=== PATIENT | male | born 1950 | race Caucasian/White ===

== ENCOUNTER → 2019-10-13 14:12 | Outpatient (BNVA) | payer OTHER, SELFPAY | PROVIDERS: Family Provider Internal Medicine; Referring Provider Internal Medicine; Visit Provider Orthopaedic Surgery | DX: S62.633A Displaced fracture of distal phalanx of left middle finger, initial encounter for closed fracture (principal); X58.XXXA Exposure to other specified factors, initial encounter | CPT/HCPCS: 73140 ==

== ENCOUNTER → 2019-11-11 08:05 | Outpatient (BNVA) | payer OTHER, SELFPAY | PROVIDERS: Family Provider Internal Medicine; Visit Provider Orthopaedic Surgery | DX: S62.633A Displaced fracture of distal phalanx of left middle finger, initial encounter for closed fracture (principal); X58.XXXA Exposure to other specified factors, initial encounter | CPT/HCPCS: 73140 ==

== ENCOUNTER → 2020-03-01 08:10 | Outpatient (BNVA) | payer OTHER, SELFPAY | PROVIDERS: Family Provider Internal Medicine; Referring Provider Family Medicine; Visit Provider Anesthesiology Pain Medicine | DX: M54.42 Lumbago with sciatica, left side (principal); M47.816 Spondylosis without myelopathy or radiculopathy, lumbar region; M54.16 Radiculopathy, lumbar region; M96.1 Postlaminectomy syndrome, not elsewhere classified; M54.9 Dorsalgia, unspecified; F17.210 Nicotine dependence, cigarettes, uncomplicated; Z79.891 Long term (current) use of opiate analgesic | CPT/HCPCS: 99204 ==

== ENCOUNTER → 2020-03-15 08:31 | Outpatient (BNVA) | payer OTHER, SELFPAY | PROVIDERS: Family Provider Internal Medicine; PCP Family Medicine; Visit Provider Anesthesiology Pain Medicine | DX: M47.816 Spondylosis without myelopathy or radiculopathy, lumbar region (principal); M54.16 Radiculopathy, lumbar region; M54.9 Dorsalgia, unspecified; M96.1 Postlaminectomy syndrome, not elsewhere classified; M79.604 Pain in right leg; F17.210 Nicotine dependence, cigarettes, uncomplicated; Z79.891 Long term (current) use of opiate analgesic | CPT/HCPCS: 99214 ==

== ENCOUNTER → 2020-04-12 08:42 | Outpatient (BNVA) | payer OTHER, SELFPAY | PROVIDERS: Family Provider Internal Medicine; PCP Family Medicine; Visit Provider Anesthesiology Pain Medicine | DX: M54.42 Lumbago with sciatica, left side (principal); M47.816 Spondylosis without myelopathy or radiculopathy, lumbar region; M54.16 Radiculopathy, lumbar region; M96.1 Postlaminectomy syndrome, not elsewhere classified; M54.9 Dorsalgia, unspecified; F17.210 Nicotine dependence, cigarettes, uncomplicated; Z79.891 Long term (current) use of opiate analgesic | CPT/HCPCS: 99213 ==

== ENCOUNTER → 2020-05-10 12:55 | Outpatient (BNVA) | payer OTHER, SELFPAY | PROVIDERS: Family Provider Internal Medicine; PCP Family Medicine; Visit Provider Anesthesiology Pain Medicine | DX: M47.816 Spondylosis without myelopathy or radiculopathy, lumbar region (principal); M54.16 Radiculopathy, lumbar region; M96.1 Postlaminectomy syndrome, not elsewhere classified; M54.9 Dorsalgia, unspecified; F17.210 Nicotine dependence, cigarettes, uncomplicated; Z79.891 Long term (current) use of opiate analgesic | CPT/HCPCS: 99213 ==

== ENCOUNTER → 2020-06-07 10:45 | Outpatient (BNVA) | payer OTHER, SELFPAY | PROVIDERS: Family Provider Internal Medicine; PCP Family Medicine; Visit Provider Anesthesiology Pain Medicine | DX: M47.816 Spondylosis without myelopathy or radiculopathy, lumbar region (principal); M54.16 Radiculopathy, lumbar region; M54.9 Dorsalgia, unspecified; M96.1 Postlaminectomy syndrome, not elsewhere classified; F17.210 Nicotine dependence, cigarettes, uncomplicated; Z79.891 Long term (current) use of opiate analgesic | CPT/HCPCS: 99213 ==

== ENCOUNTER → 2020-06-19 14:13 | Outpatient (BNVA) | payer OTHER, SELFPAY | PROVIDERS: Family Provider Internal Medicine; PCP Family Medicine; Visit Provider Specialist | DX: M54.16 Radiculopathy, lumbar region (principal); G62.9 Polyneuropathy, unspecified; F17.210 Nicotine dependence, cigarettes, uncomplicated | CPT/HCPCS: 95909 ==

== ENCOUNTER → 2020-06-30 11:06 | Outpatient (BNVA) | payer OTHER, SELFPAY | PROVIDERS: Family Provider Internal Medicine; PCP Family Medicine; Visit Provider Anesthesiology Pain Medicine | DX: M54.42 Lumbago with sciatica, left side (principal); M47.816 Spondylosis without myelopathy or radiculopathy, lumbar region; M54.16 Radiculopathy, lumbar region; M96.1 Postlaminectomy syndrome, not elsewhere classified; M54.9 Dorsalgia, unspecified; F17.210 Nicotine dependence, cigarettes, uncomplicated; Z79.891 Long term (current) use of opiate analgesic | CPT/HCPCS: 99213; 99214 ==

== ENCOUNTER → 2020-07-31 10:34 | Outpatient (BNVA) | payer OTHER, SELFPAY | PROVIDERS: Family Provider Internal Medicine; PCP Family Medicine; Visit Provider Anesthesiology Pain Medicine | DX: M54.42 Lumbago with sciatica, left side (principal); M47.816 Spondylosis without myelopathy or radiculopathy, lumbar region; M48.062 Spinal stenosis, lumbar region with neurogenic claudication; M54.16 Radiculopathy, lumbar region; M96.1 Postlaminectomy syndrome, not elsewhere classified; M54.9 Dorsalgia, unspecified; M79.604 Pain in right leg; F17.210 Nicotine dependence, cigarettes, uncomplicated; Z79.891 Long term (current) use of opiate analgesic | CPT/HCPCS: 99214 ==

== ENCOUNTER → 2020-08-28 08:40 | Outpatient (BNVA) | payer OTHER, SELFPAY | PROVIDERS: Family Provider Internal Medicine; PCP Family Medicine; Visit Provider Anesthesiology Pain Medicine | DX: M47.816 Spondylosis without myelopathy or radiculopathy, lumbar region (principal); M54.16 Radiculopathy, lumbar region; M96.1 Postlaminectomy syndrome, not elsewhere classified; M54.9 Dorsalgia, unspecified; M79.605 Pain in left leg; F17.210 Nicotine dependence, cigarettes, uncomplicated | CPT/HCPCS: 99213; 99214 ==

== ENCOUNTER → 2020-10-12 10:59 | Outpatient (BNVA) | payer OTHER, SELFPAY | PROVIDERS: Family Provider Internal Medicine; PCP Family Medicine; Visit Provider Anesthesiology Pain Medicine | DX: M96.1 Postlaminectomy syndrome, not elsewhere classified (principal); M47.816 Spondylosis without myelopathy or radiculopathy, lumbar region; M54.16 Radiculopathy, lumbar region; M54.9 Dorsalgia, unspecified; F17.210 Nicotine dependence, cigarettes, uncomplicated; Z79.891 Long term (current) use of opiate analgesic | CPT/HCPCS: 99214 ==

== ENCOUNTER 2021-04-11 14:33 | Observation (INO) | payer OTHER, SELFPAY ==
[2021-04-11] VITALS (10 sets, daily range): BP systolic 142–180; BP diastolic 72–91; PULSE 53–81; RESP 16–19; TEMP 36.7–36.8; O2SAT 92–96; BMI 29.1
--- NOTE | 2021-04-11 15:57 | ECG_ITS ---
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 Measurements Intervals [place] Rate: 56 P: 78 DC: 234 QRS: 64 QRSD: 82 T: 75 QT: 431 QTc: 419 Interpretive Statements SINUS BRADYCARDIA WITH FIRST DEGREE AV BLOCK Compared to ECG 07/31/2018 11:20:16 First degree AV block now present Sinus rhythm no longer present Electronically Signed On 04-11-2021 19:39:46 CDT by Nasrin Goode M.D. [id number]
[2021-04-11 16:21] LABS: Basophils % 0.2 %; Eosinophils # 0.2 10^3/uL (0.0-0.8); Eosinophils % 1.7 %; Hematocrit 42.3 % (42.0-52.0); Hemoglobin 13.3 g/dL (11.7-16.6); Lymphocytes % 32.7 %; Mean Corpuscular HGB Conc 31.4 g/dL (30.0-36.0); Mean Corpuscular Volume 95.3 fl (80-94); Mean Platelet Volume 10.2 fL (7.4-10.4); Monocytes # 0.7 10^3/uL (0.2-0.9); Monocytes % 7.3 %; Neutrophils # 5.21 10^3/uL (1.8-7.7); Neutrophils % 57.9 %; Nucleated Red Blood Cells % 0 %; Platelet Count 273 10^3/cmm (130-400); Red Blood Count 4.44 10^6/uL (4.1-5.3); Red Cell Distribution Width 14.1 % (12.1-15.1)
[2021-04-11 16:28] LABS: INR 1.03 (0.8-1.2)
[2021-04-11 16:33] LABS: Partial Thromboplastin Time 28.6 SECONDS (23.9-36.7)
--- NOTE | 2021-04-11 16:33 | XRR_ITS ---
PROCEDURE INFORMATION: Exam: XR Chest Exam date and time: 04/11/2021 4:33 PM Age: 70 years old Clinical indication: Cough TECHNIQUE: Imaging protocol: XR of the chest. Views: 1 view. COMPARISON: CR Chest 1 [place] [id number] 02/26/2015 5:12 PM FINDINGS: Lungs: No focal consolidation. No pulmonary edema. Calcified granuloma in the left upper lobe is stable. Pleural spaces: No pleural effusion. No pneumothorax. Heart/Mediastinum: Stable mild enlargement of the cardiac silhouette. Mediastinal contours are unremarkable. Vasculature: Vascular calcifications in the aorta. Bones/joints: Unremarkable for age. XR/XR chest 1V portable [id number] IMPRESSION: 1. No acute cardiopulmonary process. 2. Incidental/nonacute findings are listed in the report.
--- NOTE | 2021-04-11 16:40 | ED_ITS ---
HPI - General Adult General: Chief complaint: General Medical 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: SPITTING UP BLOOD, [facility] Time Seen by Provider: 04/11/21 15:16 History of Present Illness: HPI narrative: Patient is a 70-year-old male with a history of hypertension, diabetes, CAD on aspirin who presents the emergency room after episodes of dark coffee-ground hemoptysis x 1 episode. Patient says that he has been coughing earlier today when he noticed that he coughed up the dark substance. Patient also reports some mild epigastric abdominal pain denies any vomiting, melena or hematochezia. Patient specifically denies HEMATEMESIS. Patient is on any blood thinners. No other focal complaints including fever/chills, runny nose, sore throat, dilatation. Onset: 1 hr ago Duration:1 hr Location:home Severity:moderate Review of Systems Narrative: Constitutional: No fever, no chills. HEENT: No vision changes CV: No chest pain, no palpitations PULM: +cough, no dyspnea. GI: + abdominal pain, no N/V/D. : No dysuria MSKEL: No muscle pain SKIN: No new rashes, no lesions. NEURO: No headache, no focal weakness. HEME: No visible bruises PSYCH: Normal mood PFSH ED PFSH: Medical History Diabetes Hypercholesterolemia halfway (current) use of opiate analgesic Pain management contract signed Surgical History H/O arthroscopic knee surgery History of ankle surgery History of back surgery Hx of cholecystectomy Family History Other Hypertension Stroke Denies family history of Diabetes CAD (coronary artery disease) Social History Smoking and tobacco status: current some day smoker cigarettes [ Other cigarette details: 3-4 CIGS DAY ] Alcohol intake: never Substance/Drug Use: never Caregiver/support person: Yes Lives independently: Yes Household members: spouse Marital status: History of recent travel: No Physical Exam Narrative: EXAM NARRATIVE: Head: Atraumatic Eyes: PERRL, conjunctiva without injection ENT: Mucous membrane moist NECK: Supple, ROM intact LUNGS: LCTAB, no crackles/rhonchi CV: RRR ABDOMEN: Soft, + tenderness in the mid epigastric area, no guarding no rebound tenderness no McBurney's point tenderness, no Lei sign, no CVA tenderness EXTREMITY: Normal ROM SKIN: No rash or erythema NEURO: Awake and alert, no focal motor deficits PSYCH: Normal mood and affect Course Vital Signs: Vital signs: Vital Signs Temperature 97.8 F 04/12/21 04:00 Pulse Rate 63 04/12/21 04:00 Respiratory Rate 18 04/12/21 04:00 Blood Pressure 147/51 04/12/21 04:00 Pulse Oximetry 93 04/12/21 04:00 MDM - General Adult MDM Narrative: Medical decision making narrative: Patient is a 70-year-old male chronically on aspirin who presents the emergency room with midepigastric abdominal pain, cough and coffee-ground substance per cough. On exam, HDS. +Mild epigastric tenderness to palpation is noted on exam. Lab work-up showed a white count of 8.4. X-ray chest did not show any signs of mass or focal lung lesion. Will order D-dimer for evaluation of possible PE and hemoptysis. Given onset abdominal pain, this is most likely hematemesis, [facility] patient denies. Hemoglobin is within normal limit. Disposition: Admission for serial observation for hemoptysis versus hematemesis and repeat blood work. Lab Data: Labs: Lab Results 04/11/21 04/11/21 04/11/21 Range/Units 16:08 16:08 16:08 WBC 9.0 (4.0-10.0) 10^3/ uL RBC 4.44 (4.1-5.3) 10^6/u L Hgb 13.3 (11.7-16.6) g/dL Hct 42.3 (42.0-52.0) % MCV 95.3 H (80-94) fl MCH 30.0 (28.0-34.0) pg MCHC 31.4 (30.0-36.0) g/dL RDW 14.1 (12.1-15.1) % Plt Count 273 (130-400) 10^3/c mm MPV 10.2 (7.4-10.4) fL Neut % (Auto) 57.9 % Lymph % (Auto) 32.7 % [place] % (Auto) 7.3 % Eos % (Auto) 1.7 % Baso % (Auto) 0.2 % Neut # (Auto) 5.21 (1.8-7.7) 10^3/u L Lymph # (Auto) 3.0 (0.8-4.8) 10^3/u L [place] # (Auto) 0.7 (0.2-0.9) 10^3/u L Eos # (Auto) 0.2 (0.0-0.8) 10^3/u L Baso # (Auto) 0.0 (0.0-0.1) 10^3/u L Nucleated RBC % (a uto) 0 % Nucleated RBCs # 0.0 /100WBC PT 13.80 (12.1-14.9) SECO NDS INR 1.03 (0.8-1.2) APTT 28.6 (23.9-36.7) SECO NDS Sodium 140 (136-145) mmol/L Potassium 4.3 (3.5-5.1) mmol/L Chloride 103 (98-107) mmol/L Carbon Dioxide 27 (22-29) mmol/L Anion Gap 14.3 (5-19) BUN 9 (8-23) mg/dL Creatinine 0.9 (0.7-1.2) mg/dL GFR Calculation Not Reportable Glucose 72 (65-115) mg/dL Calculated Osmolal ity 287 (285-295) mOsm/k g Calcium 9.1 (8.5-10.5) mg/dL Blood Type Rho(D) Type Antibody Screen 04/11/21 Range/Units 16:20 WBC (4.0-10.0) 10^3/ uL RBC (4.1-5.3) 10^6/u L Hgb (11.7-16.6) g/dL Hct (42.0-52.0) % MCV (80-94) fl MCH (28.0-34.0) pg MCHC (30.0-36.0) g/dL RDW (12.1-15.1) % Plt Count (130-400) 10^3/c mm MPV (7.4-10.4) fL Neut % (Auto) % Lymph % (Auto) % [place] % (Auto) % Eos % (Auto) % Baso % (Auto) % Neut # (Auto) (1.8-7.7) 10^3/u L Lymph # (Auto) (0.8-4.8) 10^3/u L [place] # (Auto) (0.2-0.9) 10^3/u L Eos # (Auto) (0.0-0.8) 10^3/u L Baso # (Auto) (0.0-0.1) 10^3/u L Nucleated RBC % (a uto) % Nucleated RBCs # /100WBC PT (12.1-14.9) SECO NDS INR (0.8-1.2) APTT (23.9-36.7) SECO NDS Sodium (136-145) mmol/L Potassium (3.5-5.1) mmol/L Chloride (98-107) mmol/L Carbon Dioxide (22-29) mmol/L Anion Gap (5-19) BUN (8-23) mg/dL Creatinine (0.7-1.2) mg/dL GFR Calculation Glucose (65-115) mg/dL Calculated Osmolal ity (285-295) mOsm/k g Calcium (8.5-10.5) mg/dL Blood Type A Positive Rho(D) Type Positive Antibody Screen Negative Discharge Plan Discharge Patient Disposition: Admitted As Inpatient Admit Provider: Jim Vilchis Clinical Impression: Coffee ground emesis, Hemoptysis, Midepigastric pain Condition: Stable Coding Level of Care Code ED Switchboard Manager for Sarah Sheth
[2021-04-11 16:42] LABS: Anion Gap 14.3 (5-19); Blood Urea Nitrogen 9 mg/dL (8-23); Calcium 9.1 mg/dL (8.5-10.5); Carbon Dioxide 27 mmol/L (22-29); Chloride 103 mmol/L (98-107); Glucose 72 mg/dL (65-115); Osmolality Calculated 287 mOsm/kg (285-295); Potassium 4.3 mmol/L (3.5-5.1); Sodium 140 mmol/L (136-145)
[2021-04-11] MEDS: pantoprazole 40 mg SDV 80 MG IVP (16:47)
[2021-04-11 17:44] LABS: D Dimer 0.56 ug/mIFEU (0-0.59)
--- NOTE | 2021-04-11 19:51 | PM.HP ---
Providers/Chief Complaint Admitting Physician: Jim Vilchis Primary Care Provider: Surekha Harman MD Chief Complaint: SP[facility] BLO[facility] History of Present Illness Very pleasant 70-year-old gentleman, current smoker, with history of diabetes, HLD, HTN, chronically on prophylactic aspirin presented today after episodes of hemoptysis stating that this morning after episode of cough he regurgitated about 30 mL of bloody/coffee-ground appearing fluid. He reports not long after that he had felt somewhat weak in his legs, lightheaded and almost fell down/passed out. However, recovered. So far had had no further issues. Denies any recent cough. Chest pain. Says he was working outside when it happened. 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 He denies any nausea or vomiting. No diarrhea. Denies any fever, chills, muscle aches, sore throat, runny nose. No headache. Denies any NSAID use. States that he had had back surgery earlier this year, and he is not sure he may have had endoscopy at that time, but does not remember having the procedure done. Back surgery was at [facility]. He is a current smoker. He denies any unintended weight loss. Denies any prior hemoptysis. Otherwise denies also any drenching night sweats. Review of Systems Const: Denies: fever(s), chills, body aches or malaise Eyes: Denies: change in vision or eye redness ENMT: Denies: throat pain, oral sores or ear or mastoid pain Card: Denies: chest pain, edema, pre-syncope or dyspnea on exertion Resp: Reports: hemoptysis (Vs coffee ground emesis?); Denies: dyspnea, productive cough or change in phlegm color GI: Denies: abdominal pain, nausea, vomiting, diarrhea, constipation, hematochezia or melena : Denies: flank pain, difficulty urinating, urinary frequency or hematuria Musc: Denies: back pain, joint swelling or joint redness Skin/Breast: Denies: rash, sores or new lesions Neuro: Denies: headache(s), numbness in extremities, weakness in extremities, dizziness, confusion or seizure-like activity Endo: Denies: polyuria or polydipsia [place]/Lymph: Denies: easy bleeding or purpura All/Imm: Denies: urticaria, throat swelling or tongue swelling Medications/Allergies Home Medications Medication Instructions Recorded Confirmed Last Taken Type aspirin 81 mg tablet,delayed 81 mg PO DAILY 10/13/19 04/11/21 04/11/21 History release diltiazem HCl 180 mg 180 mg PO DAILY 03/01/20 04/11/21 04/11/21 History capsule,extended release 24 hr lisinopril 40 mg tablet 40 mg PO DAILY 03/01/20 04/11/21 04/10/21 History omeprazole 20 mg capsule,delayed 20 mg PO DAILY 03/01/20 04/11/21 04/10/21 History release pravastatin 40 mg tablet 20 mg PO DAILY 03/01/20 04/11/21 04/10/21 History cholecalciferol (vitamin D3) 1,250 1,250 mcg PO DAILY cap 05/10/20 04/11/21 04/11/21 History mcg (50,000 unit) capsule metformin 500 mg PO BID 04/11/21 04/11/21 04/11/21 History pregabalin 100 mg PO BID 04/11/21 04/11/21 04/11/21 History sennosides 8.6 mg PO BID 04/11/21 04/11/21 04/11/21 History Allergies Allergy/AdvReac Type Severity Reaction Status Date / Time No Known Allergies Allergy Verified 10/12/20 11:46 PFSH Acute PFSH: Medical History Diabetes Hypercholesterolemia 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 Pain management contract signed Surgical History H/O arthroscopic knee surgery History of ankle surgery History of back surgery Hx of cholecystectomy Family History Other Hypertension Stroke Denies family history of Diabetes CAD (coronary artery disease) Social History Smoking and tobacco status: current some day smoker cigarettes [ Other cigarette details: 3-4 CIGS DAY ] Alcohol intake: never Substance/Drug Use: never Caregiver/support person: Yes Lives independently: Yes Household members: spouse Marital status: History of recent travel: No Vitals/I&O/Wt Last Vital Signs Temp 98.2 F 04/11/21 15:00 Pulse 55 L 04/11/21 19:08 Resp 18 04/11/21 19:08 BP 170/87 04/11/21 19:08 Pulse Ox 94 04/11/21 19:08 Weight last 48 hrs Weight 97.522 kg Physical Exam Narrative: EXAM NARRATIVE: Accompanied by his . Const: COMMON NORMALS: no acute distress and patient oriented x3 HENMT: COMMON NORMALS: oropharynx normal Neck/C-Spine: COMMON NORMALS: no JVD Resp: COMMON NORMALS: normal respiratory effort and clear to auscultation bilaterally AUSCULTATION: clear to auscultation bilaterally Cardio: COMMON NORMALS: no JVD, regular rhythm, S1 normal heart sound present, S2 normal heart sound present and No murmurs present (Cardio) RHYTHM: regular rhythm HEART SOUNDS: S1 normal heart sound present and S2 normal heart sound present GI: COMMON NORMALS: Normal to inspection, nondistended, normoactive bowel sounds present, Soft to palpation and non-tender PALPATION: Yes Soft to palpation Extremity: COMMON NORMALS: no joint enlargement and no pedal edema Neuro: COMMON NORMALS: patient oriented x3 and moves all extremities Skin: COMMON NORMALS: no rashes or lesions noted GENERAL SKIN EXAM: no rashes or lesions noted Data : 04/11/21 16:08 04/11/21 16:08 A&P Assessment and plan (1) Hemoptysis: For episode of cough. Cough were regurgitated bloody/coffee-ground appearing fluid. He is not sure exactly where the fluid had come from. He denies any recent cough. Denies chest pain or pressure. Has not been short of breath. Did have a moment of lightheadedness/feeling weak in his legs after the episode which spontaneously resolved. He also denies any recent nausea or vomiting. He takes aspirin at home. Denies any NSAIDs. Is not on any anticoagulants. His chest x-ray. Unremarkable apart from a calcified granuloma in the left upper lobe which is noted stable. He denies any recurrent fevers, drenching night sweats, unintended weight loss. He states that he is very active at home, and otherwise has been at baseline state of health. We will additionally test rapid COVID-19, although he otherwise does not appear to have significant associated symptoms. In case coughing up more phlegm, will collect for culture. D-dimer has been checked and is negative. Discussed with him with history of smoking would benefit from additional CT evaluation to exclude malignancy as the cause. Does appear to have monophonic wheeze in the right midlung area. He reports like he had almost choked up during the episode. Again difficult to say if he had head regurgitation on which he may have aspirated, as opposed to the blood coming primarily from his lung. Hold aspirin for now. He states he takes it only prophylactically. Assess TTE. Status: Acute (2) Smoking addiction: Encourage cessation. Status: Acute (3) Coffee ground emesis: Started on PPI. We will for now continue. Recheck his blood count. Hold aspirin. Status: Acute Additional A&P Information DM2: On Metformin at home HTN: Takes diltiazem at home. For now will decrease his doses heart rate is noted to be 55. HLD Attestations Medical Necessity Statement*: Place in observation for assessment and monitoring following hemoptysis or regurgitation of about 30 mL of bloody fluid of unclear origin. Coding Level of Care Code Acute Datawarehouse Developer for Sarah Sheth Diagnoses Hemoptysis R04.2 Smoking addiction F17.200 Coffee ground emesis K92.0
[2021-04-11 20:31] LABS: SARS Covid-2 Antigen Negative (Negative)
[2021-04-12] VITALS (7 sets, daily range): BP systolic 138–170; BP diastolic 51–92; PULSE 54–72; RESP 16–18; TEMP 36.3–36.7; O2SAT 93–96
[2021-04-12 03:15] LABS: Basophils % 0.2 %; Eosinophils # 0.1 10^3/uL (0.0-0.8); Eosinophils % 1.7 %; Hematocrit 41.6 % (42.0-52.0); Lymphocytes % 23.9 %; Mean Corpuscular HGB Conc 31.3 g/dL (30.0-36.0); Mean Corpuscular Hemoglobin 30.2 pg (28.0-34.0); Mean Corpuscular Volume 96.7 fl (80-94); Mean Platelet Volume 10.3 fL (7.4-10.4); Monocytes # 0.6 10^3/uL (0.2-0.9); Monocytes % 7.5 %; Neutrophils # 5.58 10^3/uL (1.8-7.7); Neutrophils % 66.5 %; Nucleated Red Blood Cells % 0 %; Platelet Count 251 10^3/cmm (130-400); Red Cell Distribution Width 14.2 % (12.1-15.1); White Blood Count 8.4 10^3/uL (4.0-10.0)
[2021-04-12 03:49] LABS: Alanine Aminotransferase 8 U/L (0-41); Albumin Level 3.5 g/dL (3.5-5.2); Alkaline Phosphatase 66 IU/L (40-130); Anion Gap 12.1 (5-19); Aspartate Amino Transferase 15 U/L (0-40); Blood Urea Nitrogen 7 mg/dL (8-23); Carbon Dioxide 27 mmol/L (22-29); Chloride 105 mmol/L (98-107); Globulin 2.4 g/dL (1.3-4.6); Glucose 76 mg/dL (65-115); Osmolality Calculated 287 mOsm/kg (285-295); Potassium 4.1 mmol/L (3.5-5.1); Sodium 140 mmol/L (136-145); Total Bilirubin 0.5 mg/dL (0.15-1.2); Total Protein 5.9 g/dL (6.6-8.7)
--- NOTE | 2021-04-12 05:19 | PC.NURSE ---
Patient arrived to floor via wheel chair, minimal c/o of discomfort but not pain. No emesis or hemopytosis during shift since arrival to floor. No skin concerns. OOBTC, VSS, no needs, room clutter free, call light in reach. No needs at this time. Repositions self frequently. WIll report and handoff patient to oncoming nurse at shift change.
[2021-04-12] MEDS: pantoprazole DR 40 mg Tablet PO (08:04)
[2021-04-12] MEDS: dilTIAZem ER (24HR) 120 mg Capsule PO (08:04)
[2021-04-12] MEDS: sennosides 8.6 mg Tablet PO (08:04)
[2021-04-12] MEDS: atorvastatin 40 mg Tablet 20 MG PO (08:04)
[2021-04-12] MEDS: pregabalin 100 mg Capsule PO (08:04)
[2021-04-12] MEDS: lisinopril 20 mg Tablet 40 MG PO (08:04)
--- NOTE | 2021-04-12 09:11 | CT_ITS ---
[facility]-HIGH RESOLUTION, NONCONTRAST. HISTORY: Interstitial lung disease. Technique: High-resolution chest CT is performed in inspiration, expiration, supine and prone positio donovan. All CT scans at [facility] use at least one of these dose optimization techniques: automated exposure control; mA and/or kV adjustment per patient size (includes targeted exams where dose is mat ched to clinical indication); or iterative reconstruction. DLP: 108.33 mGy.cm COMPARISON: None. Findings: Contiguous axial imaging is nondiagnostic due to motion. Inspiratory and expiratory films are negative for air trapping. No pneumonia or bronchiectasis. 4 mm nodule along the LEFT major fissure. No bronchiectasis or honeycombing. No nodules. No atelectasis. T here is a small amount of debris within the trachea which is probably mucous. No endobronchial nodule s. Mild enlargement of the aorta and pulmonary artery. Impression 1. No air trapping or bronchiectasis. 2. No pneumonia. 3. Mild emphysema.
--- NOTE | 2021-04-12 21:33 | P.DS_ITS ---
Discharge Providers Date of Admission: 04/11/21 17:05 Date of Discharge: April 12, 2021 Attending Provider at Admission: Jim Vilchis Attending Provider at Discharge: Jim Vilchis Primary Care Provider: Surekha Harman MD Diagnoses at Discharge Discharge Diagnosis (1) Hemoptysis: Status: Acute (2) Smoking addiction: Status: Acute (3) Coffee ground emesis: Status: Acute Reason for Visit Reason for Visit: SPITTING UP BLOOD, SENT BY NE Hospital Course Hospital Course Pleasant 70-year-old gentleman, current smoker, with history of diabetes, HLD, HTN, chronically on prophylactic aspirin presented, current smoker, with history of diabetes, HLD, HTN, chronically on prophylactic aspirin presented after an episode of cough subsequently with regurgitation and coughing up about 30 mL of phlegm with blood/coffee-ground appearing fluid. He was not sure if he had coughed up or vomited some let up. He reports not long after that he had felt somewhat weak in his legs, lightheaded and almost fell down/passed out. However, recovered. So far had had no further issues. Denies any recent cough. Chest pain. Says he was working outside when it happened. 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 He denies any nausea or vomiting. No diarrhea. Denies any fever, chills, muscle aches, sore throat, runny nose. No headache. Denies any NSAID use. States that he had had back surgery earlier this year, and he is not sure he may have had endoscopy at that time, but does not remember having the procedure done. Back surgery was at [facility]. He is a current smoker. He denies any unintended weight loss. Denies any prior hemoptysis. Otherwise denies also any drenching night sweats. With concern for possible GI bleed he was maintained on bowel rest, clear liquid diet, hemoglobin was rechecked in the morning and stayed stable at 13. Aspirin has been withheld. Overnight he did well, had had no hemoptysis, no vomiting. He reports having mild cough. Does report having some itchy eyes recently. On examination of nares, noted to have inflammatory mucosal changes. Reports some seasonal allergy-type symptoms. With aspirin my suspicion is that he may have had a self-limited episode of epistaxis with postnasal drip which he then coughed up. Discussing with him he agrees. He may have mild bronchitis. Isolated wheezes on exam. Due to this he is given albuterol inhaler as needed. D-dimer was normal. Due to history of smoking, however, with hemoptysis, he is assessed by HRCT, noncontrast study. No air trapping or bronchiectasis is noted. No pneumonia. Mild emphysema. 4 mm nodule noted in left major fissure. Given history of smoking, consider follow-up CT at 6-12 months. Discussed with him also in case of recurrence of hemoptysis consider contrast CT study. Please consider referral for pulmonary function testing given noted emphysema, as well as wheezing, possibly with asthmatic component. 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 Reason for his episode of weakness shortly after the episode is not entirely clear. May have been vasovagal, following cough. He is however, also noted to have bradycardia, heart rates dipping down to 53- 57. He is on diltiazem which he says he takes for hypertension alongside lisinopril. Encouraged him to continue monitoring his heart rates. We will for now decrease diltiazem dose to 120 mg daily, however, if persistently remains bradycardic, please discontinue this medication and consider switch to one that would not cause bradycardia unless needed for other indication, although he denies having history of atrial fibrillation or other arrhythmia. Encouraged him to quit smoking. Please follow-up and help him with this difficult task. Physical Exam Const: COMMON NORMALS: no acute distress, patient oriented x3 and alert GENERAL APPEARANCE: cooperative and comfortable ORIENTATION/CONSCIOUSNESS: Yes awake OTHER: In good spirits. Feels good about returning home. HENMT: COMMON NORMALS: oropharynx normal Neck/C-Spine: COMMON NORMALS: no JVD Resp: COMMON NORMALS: normal respiratory effort and clear to auscultation bilaterally AUSCULTATION: clear to auscultation bilaterally and wheezes (Minute wheeze, today on the left.) Cardio: COMMON NORMALS: no JVD, regular rhythm, S1 normal heart sound present, S2 normal heart sound present and No murmurs present (Cardio) RHYTHM: regular rhythm HEART SOUNDS: S1 normal heart sound present and S2 normal heart sound present GI: COMMON NORMALS: Normal to inspection, nondistended, normoactive bowel sounds present, Soft to palpation and non-tender PALPATION: Yes Soft to palpation Extremity: COMMON NORMALS: no joint enlargement and no pedal edema Neuro: COMMON NORMALS: patient oriented x3 and moves all extremities SENSORIUM/ORIENTATION: Yes alert Skin: COMMON NORMALS: no rashes or lesions noted GENERAL SKIN EXAM: no rashes or lesions noted Discharge Data Data Completed and Pending: Completed Studies During Hospitalization Category Date Time Status CT chest wo con 7 1250 Routine Cat Scan 04/12/21 09:11 Completed XR chest 1V ryan ble [id number] Stat Exams 04/11/21 16:33 Completed Labs from last 24 hours 04/12/21 04/12/21 02:45 02:45 WBC 8.4 RBC 4.30 Hgb 13.0 Hct 41.6 L MCV 96.7 H MCH 30.2 MCHC 31.3 RDW 14.2 Plt Count 251 MPV 10.3 Neut % (Auto) 66.5 Lymph % (Auto) 23.9 [place] % (Auto) 7.5 Eos % (Auto) 1.7 Baso % (Auto) 0.2 Neut # (Auto) 5.58 Lymph # (Auto) 2.0 [place] # (Auto) 0.6 Eos # (Auto) 0.1 Baso # (Auto) 0.0 Nucleated RBC % (a uto) 0 Nucleated RBCs # 0.0 Sodium 140 Potassium 4.1 Chloride 105 Carbon Dioxide 27 Anion Gap 12.1 BUN 7 L Creatinine 0.8 GFR Calculation Not Reportable Glucose 76 Calculated Osmolal ity 287 Calcium 9.0 Total Bilirubin 0.5 AST 15 ALT 8 Alkaline Phosphata se 66 Total Protein 5.9 L Albumin 3.5 Globulin 2.4 Vitals: Last Vital Signs Temp 98.1 F 04/12/21 17:39 Pulse 56 L 04/12/21 17:39 Resp 17 04/12/21 17:39 BP 166/80 04/12/21 17:39 Pulse Ox 93 04/12/21 17:39 Discharge Plan Discharge Patient Disposition: Home Condition: Stable Prescriptions: New diltiazem HCl 120 mg capsule,extended release 24hr 120 mg PO DAILY Qty: 90 RF: 0 Nasacort 55 mcg aerosol,spray 1 spray intranasal QAM Qty: 16.9 RF: 0 albuterol sulfate 90 mcg/actuation aerosol powdr breath activated 1 inh inhalation Q6H PRN (Reason: shortness of breath or wheezing) Qty: 1 RF: 0 Continued pravastatin 40 mg tablet 20 mg PO DAILY RF: 0 lisinopril 40 mg tablet 40 mg PO DAILY RF: 0 omeprazole 20 mg capsule,delayed release(DR/EC) 20 mg PO DAILY RF: 0 cholecalciferol (vitamin D3) 1,250 mcg (50,000 unit) capsule 1,250 mcg PO DAILY RF: 0 sennosides 8.6 mg Tablet 8.6 mg PO BID RF: 0 metformin 1,000 mg Tablet 500 mg PO BID RF: 0 pregabalin 100 mg Capsule 100 mg PO BID RF: 0 Discontinued aspirin [Adult Low Dose Aspirin] 81 mg tablet,delayed release (DR/EC) 81 mg PO DAILY RF: 0 diltiazem HCl 180 mg capsule,extended release 24hr 180 mg PO DAILY RF: 0 Discharge Orders: Discharge Order (Routine); Ordered 04/12/21 Ordered By: Jim Vilchis Referrals: Surekha Harman MD [Primary Care Provider] - 2 weeks (Please call tomorrow to dorian a follow up appointment.) Discharge Diet: Cardiac Discharge Activity: Increase activity as tolerated Patient Instructions: Diltiazem (By mouth), How to Stop Smoking (GEN), Cigarette Smoking and Your Health (GEN), Acute Hemoptysis (GEN), Chronic Hypertension (GEN), Bradycardia (GEN) Activity Restrictions/Additional Instructions: We are suspecting we havePlease follow-up with your primary doctor regarding episode of coughing up blood. Please discuss also 4 mm nodule noted in the lung on CT. Consider follow-up CAT scan at 6-12 months. In case additional episodes of coughing up blood, or any other concerning symptoms for malignancy, consider CAT scan with contrast dye. Please use Nasacort for nasal allergy symptoms, noted nasal inflammation. Please discontinue aspirin as with allergy symptoms, nasal polyps, people who have wheezing/asthma, can have sensitivity to aspirin and other NSAIDs as part of Samter's triad. In case you are having persistent recurrent wheezing, please discuss pulmonary function testing referral with your primary doctor. We are suspecting he may be having mild bronchitis. Due to this you are given albuterol inhaler as needed. Please note that due to slow pulse rates in the hospital, 53-57 bpm, your Cardizem dose at this time is decreased to 120 mg daily. Please continue to monitor your heart rate at home. If your heart rate is slower than 60 and you are having symptoms of dizziness or if your heart rates are falling below 50 bpm , please do not take anymore diltiazem. Please stop smoking, as smoking will increase your risk of heart disease, stroke, lung disease, as well as a number of different cancers. Discharge Attestations Time Spent in Discharge Care*: greater than 30 min Quality Metrics Clinical Quality Measures During this hospital stay, did patient experience: None Coding Level of Care Code Acute Chg FW DC note Diagnoses Hemoptysis R04.2 Smoking addiction F17.200 Coffee ground emesis K92.0
--- NOTE | 2021-04-13 11:52 | PC.SOCIAL ---
discharge follow up call made. Patient is waiting to receive [facility]. Follow up appointment made with Dr. Harman for 2 weeks.
== END 2021-04-12 17:40 | disposition home or self-care (01) ==
LOC: ER 16:47 → MEDSURG 19:12
PROVIDERS: Admitting Provider Internal Medicine; Emergency Provider Emergency Medicine; PCP Family Medicine; Visit Provider Internal Medicine
DX: R04.2 Hemoptysis (principal); F17.210 Nicotine dependence, cigarettes, uncomplicated; K92.0 Hematemesis; E11.9 Type 2 diabetes mellitus without complications; E78.5 Hyperlipidemia, unspecified; I10 Essential (primary) hypertension; Z79.82 Long term (current) use of aspirin; E78.00 Pure hypercholesterolemia, unspecified; Z79.891 Long term (current) use of opiate analgesic; Z82.49 Family history of ischemic heart disease and other diseases of the circulatory system; Z82.3 Family history of stroke
CPT/HCPCS: 36415; 71045; 71250; 80048; 80053; 85025; 85378; 85610; 85730; 86850; 86900; 87426; 93005; 96374; 99285; C9113; G0378

== ENCOUNTER 2021-09-11 16:40 | Emergency (ER) | payer OTHER, SELFPAY ==
[2021-09-11] VITALS (7 sets, daily range): BP systolic 93–118; BP diastolic 60–85; PULSE 81–108; RESP 18–24; TEMP 36.9–37.4; O2SAT 90–94
--- NOTE | 2021-09-11 17:35 | ECG_ITS ---
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 Measurements Intervals [place] Rate: 109 P: PA: QRS: 64 QRSD: 84 T: 77 QT: 311 QTc: 420 Interpretive Statements ATRIAL FIBRILLATION WITH RAPID VENTRICULAR RESPONSE NONSPECIFIC T-WAVE ABNORMALITY ABNORMAL RHYTHM ECG Compared to ECG 04/11/2021 16:06:57 T-wave abnormality now present Sinus bradycardia no longer present First degree AV block no longer present Electronically Signed On 09-12-2021 7:05:36 ENTRY LEVEL PARALEGAL by Brittany Henderosn M.D. [id number] f
--- NOTE | 2021-09-11 17:59 | XRR_ITS ---
PROCEDURE INFORMATION: Exam: XR Chest Exam date and time: 09/11/2021 5:59 PM Age: 71 years old Clinical indication: Cough and shortness of breath; Additional info: Dyspnea/cough TECHNIQUE: Imaging protocol: XR of the chest. Views: 1 view. COMPARISON: CT chest con [id number] 04/12/2021 10:03 AM FINDINGS: Lungs: Hyperinflated lungs. No consolidation. No pulmonary lesion. Left upper lobe granuloma. Pleural spaces: Unremarkable. No pleural effusion. No pneumothorax. Heart/Mediastinum: Unremarkable. No cardiomegaly. Bones/joints: Unremarkable. XR/XR chest 1V portable [id number] IMPRESSION: No focal acute cardiopulmonary disease.
[2021-09-11 18:06] LABS: Basophils % 0.1 %; Hematocrit 40.7 % (42.0-52.0); Hemoglobin 13.2 g/dL (11.7-16.6); Lymphocytes # 0.7 10^3/uL (0.8-4.8); Lymphocytes % 7.6 %; Mean Corpuscular HGB Conc 32.4 g/dL (30.0-36.0); Mean Corpuscular Hemoglobin 30.3 pg (28.0-34.0); Mean Corpuscular Volume 93.6 fl (80-94); Mean Platelet Volume 10.7 fL (7.4-10.4); Monocytes # 0.7 10^3/uL (0.2-0.9); Monocytes % 7.3 %; Neutrophils # 8.27 10^3/uL (1.8-7.7); Neutrophils % 84.7 %; Nucleated Red Blood Cells % 0 %; Platelet Count 209 10^3/cmm (130-400); Red Blood Count 4.35 10^6/uL (4.1-5.3); Red Cell Distribution Width 13.3 % (12.1-15.1); White Blood Count 9.8 10^3/uL (4.0-10.0)
--- NOTE | 2021-09-11 18:34 | W.ED.WEAKNES ---
HPI - Weakness General: Chief complaint: Weakness 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: Legs have been bothering him, passing out Time Seen by Provider: 09/11/21 17:34 Source: patient Mode of arrival: ambulatory Limitations: no limitations History of Present Illness: 71-year-old male states that over the last 3 to 4 days been feeling generally weak with some leg pain and leg weakness. He states anytime he gets up to walk he feels like he is going to fall due to his severe weakness also had some low-grade fevers and cough and shortness of breath he is hypoxic here requiring 3 L. Denies any vomiting or diarrhea denies any chest pain. Associated symptoms: Reports chills and fever(s); Denies chest pain, dysuria, easy bruising, headache(s), nausea or vomiting Review of Systems Const: Reports: fever(s), chills and malaise Eyes: Denies: blurry vision or eye discomfort ENMT: Denies: throat pain or dental pain Card: Denies: chest pain Resp: Reports: dyspnea and non-productive cough GI: Denies: abdominal pain, nausea, vomiting or diarrhea : Denies: dysuria Musc: Denies: neck pain or back pain Skin/Breast: Denies: rash Neuro: Denies: headache(s) Psych: Denies: depression [place]/Lymph: Denies: easy bruising All/Imm: Denies: urticaria PFSH ED PFSH: Medical History Diabetes 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 Pain management contract signed Surgical History H/O arthroscopic knee surgery History of ankle surgery History of back surgery Hx of cholecystectomy Family History Other Hypertension Stroke Denies family history of Diabetes CAD (coronary artery disease) Social History Smoking and tobacco status: current some day smoker cigarettes [ Other cigarette details: 3-4 CIGS DAY ] Alcohol intake: never Caregiver/support person: Yes Lives independently: Yes Household members: spouse Marital status: History of recent travel: No Physical Exam Const: COMMON NORMALS: patient oriented x3 and healthy appearing GENERAL APPEARANCE: in distress HENMT: COMMON NORMALS: normocephalic and atraumatic HEAD & SCALP: normocephalic and atraumatic Eye: COMMON NORMALS: Equal, round and reactive pupils present and EOMs intact bilaterally PUPIL: Yes Equal, round and reactive pupils present Neck/C-Spine: COMMON NORMALS: full ROM and supple Chest: COMMONS NORMALS: normal inspection of the chest and normal palpation of entire chest wall Resp: COMMON NORMALS: No retractions and No use of accessory muscles EFFORT & INSPECTION: Yes tachypneic AUSCULTATION: rales Cardio: COMMON NORMALS: regular rate, regular rhythm and No murmurs present (Cardio) RATE: regular rate RHYTHM: regular rhythm GI: COMMON NORMALS: Normal to inspection, nondistended, normoactive bowel sounds present, Soft to palpation, non-tender and no masses PALPATION: Yes Soft to palpation Extremity: COMMON NORMALS: normal to inspection and full ROM Neuro: COMMON NORMALS: patient oriented x3, moves all extremities and no focal motor deficits Psych: COMMON NORMALS: mental status grossly normal, Normal thought process present and cooperative THOUGHT PROCESS: Normal thought process present Skin: COMMON NORMALS: no rashes or lesions noted and no wounds GENERAL SKIN EXAM: no rashes or lesions noted Course Vital Signs: Vital signs: Vital Signs Temperature 99.1 F 09/11/21 23:39 Pulse Rate 99 09/11/21 23:39 Respiratory Rate 24 H 09/11/21 23:39 Blood Pressure 110/64 09/11/21 23:39 Pulse Oximetry 93 09/11/21 23:39 MDM - Weakness Medical Decision Making Patient presents here with Covid pneumonia likely causing his weakness along with hypoxia. He feels much improved after IV fluids along with oxygen he is requiring 2 L of oxygen here CT shows no signs of pulmonary embolism he is stable for discharge. Patient set up on home oxygen we will start him on 2 L. He is to monitor his oxygen return if worsening. Lab Data : 09/11/21 17:50 09/11/21 17:50 Radiology Impressions Chest X-Ray 09/11/21 17:59 IMPRESSION: No focal acute cardiopulmonary disease. Chest CTA 09/11/21 20:27 IMPRESSION: 1. Patchy ground-glass parenchymal lesions in both lungs which may reflect sequela of pneumonia. 2. Negative for pulmonary embolism. COMMENTS: Consistent with the [employer]'s Incidental Findings Committee white paper (J Am Shanna Radiol 2018): Any incidental renal lesion less than 1 cm or classified as too small to characterize, or any incidental cystic renal lesion characterized as simple-appearing, is likely benign. No follow-up imaging is recommended for these lesions per consensus recommendations based on imaging criteria. Laboratory Results WBC 9.8 10^3/uL (4.0-10.0) 09/11/21 17:50 RBC 4.35 10^6/uL (4.1-5.3) 09/11/21 17:50 Hgb 13.2 g/dL (11.7-16.6) 09/11/21 17:50 Hct 40.7 % (42.0-52.0) L 09/11/21 17:50 MCV 93.6 fl (80-94) 09/11/21 17:50 MCH 30.3 pg (28.0-34.0) 09/11/21 17:50 MCHC 32.4 g/dL (30.0-36.0) 09/11/21 17:50 RDW 13.3 % (12.1-15.1) 09/11/21 17:50 Plt Count 209 10^3/cmm (130-400) 09/11/21 17:50 MPV 10.7 fL (7.4-10.4) H 09/11/21 17:50 Neut % (Auto) 84.7 % 09/11/21 17:50 Lymph % (Auto) 7.6 % 09/11/21 17:50 [place] % (Auto) 7.3 % 09/11/21 17:50 Eos % (Auto) 0.0 % 09/11/21 17:50 Baso % (Auto) 0.1 % 09/11/21 17:50 Neut # (Auto) 8.27 10^3/uL (1.8-7.7) H 09/11/21 17:50 Lymph # (Auto) 0.7 10^3/uL (0.8-4.8) L 09/11/21 17:50 [place] # (Auto) 0.7 10^3/uL (0.2-0.9) 09/11/21 17:50 Eos # (Auto) 0.0 10^3/uL (0.0-0.8) 09/11/21 17:50 Baso # (Auto) 0.0 10^3/uL (0.0-0.1) 09/11/21 17:50 Nucleated RBC % (auto) 0 % 09/11/21 17:50 Nucleated RBCs # 0.0 /100WBC 09/11/21 17:50 D-Dimer 0.98 ug/mIFEU (0-0.59) H 09/11/21 19:42 Sodium 133 mmol/L (136-145) L 09/11/21 17:50 Potassium 3.9 mmol/L (3.5-5.1) 09/11/21 17:50 Chloride 98 mmol/L (98-107) 09/11/21 17:50 Carbon Dioxide 20 mmol/L (22-29) L 09/11/21 17:50 Anion Gap 18.9 (5-19) 09/11/21 17:50 BUN 25 mg/dL (8-23) H 09/11/21 17:50 Creatinine 1.4 mg/dL (0.7-1.2) H 09/11/21 17:50 GFR Calculation Not Reportable 09/11/21 17:50 Glucose 128 mg/dL (65-115) H 09/11/21 17:50 Calculated Osmolality 282 mOsm/kg (285-295) L 09/11/21 17:50 Lactic Acid 0.9 mmol/L (0.5-2.2) 09/11/21 19:42 Calcium 9.1 mg/dL (8.5-10.5) 09/11/21 17:50 Total Bilirubin 0.3 mg/dL (0.15-1.2) 09/11/21 17:50 AST 23 U/L (0-40) 09/11/21 17:50 ALT 11 U/L (0-41) 09/11/21 17:50 Alkaline Phosphatase 72 IU/L (40-130) 09/11/21 17:50 Creatine Kinase 73 U/L (39-308) 09/11/21 17:50 Troponin T Baseline 20 ng/L (0-15) H 09/11/21 17:50 Troponin T 120 Minute 19.66 ng/L (0-15) H 09/11/21 20:36 Delta Troponin T -0.34 ABS# (0-10) L 09/11/21 20:36 Total Protein 6.8 g/dL (6.6-8.7) 09/11/21 17:50 Albumin 3.5 g/dL (3.5-5.2) 09/11/21 17:50 Globulin 3.3 g/dL (1.3-4.6) 09/11/21 17:50 TSH 0.78 uIU/mL (0.27-4.20) 09/11/21 17:50 Urine Color Yellow (Yellow) 09/11/21 19:42 Urine Appearance Clear (CLEAR) 09/11/21 19:42 Urine pH 5 (5-7) 09/11/21 19:42 Ur Specific [place] 1.025 (1.005-1.030) 09/11/21 19:42 Urine Protein 2+ (Negative) H 09/11/21 19:42 Urine Glucose (UA) Trace (Normal) H 09/11/21 19:42 Urine Ketones Negative (Negative) 09/11/21 19:42 Urine Blood 3+ (Negative) H 09/11/21 19:42 Urine Nitrate Negative (Negative) 09/11/21 19:42 Urine Bilirubin 1+ (Negative) H 09/11/21 19:42 Urine Urobilinogen 1 mg/dL (Negative) H 09/11/21 19:42 Ur Leukocyte Esterase Negative (Negative) 09/11/21 19:42 Urine RBC 15-25 /hpf (0-2) H 09/11/21 19:42 Urine WBC Rare /hpf (0-5) 09/11/21 19:42 Ur Squamous Epith Cells Rare /hpf (0-5) 09/11/21 19:42 Amorphous Sediment Not Reportable 09/11/21 19:42 Urine Bacteria 2+ /hpf (NONE) H 09/11/21 19:42 Hyaline Casts 0-4 /lpf H 09/11/21 19:42 RBC Casts Rare /lpf 09/11/21 19:42 Urine Mucus 3+ /hpf 09/11/21 19:42 Coronavirus 229E (PCR) Not detected (NOT DETECT) 09/11/21 18:01 SARS-CoV-2 (PCR) Detected (NOT DETECT) A 09/11/21 18:01 Imaging Data CXR: I personally reviewed and interpreted this imaging study as follows: Radiologist's impression: IMPRESSION: No acute chest abnormality. EKG Data EKG 1: I personally reviewed and interpreted this EKG as follows: EKG interpretation date: 09/11/21 EKG interpretation time: 16:51 Interpretation: atrial flutter hr [address] or t wave abnormalities qrs 84 qtc 375 EKG 2: I personally reviewed and interpreted this EKG as follows: EKG interpretation date: 09/11/21 EKG interpretation time: 17:23 Interpretation: sinus tach hr [address] or t wave abnormalities qrs 90 qtc 377 Discharge Plan Discharge Patient Disposition: Home Clinical Impression: COVID-19 Condition: Stable Prescriptions: No Action pravastatin 40 mg tablet 20 mg PO DAILY 0RF Rx Instructions: DOSE CHANGE lisinopril 40 mg tablet 40 mg PO DAILY 0RF omeprazole 20 mg capsule,delayed release(DR/EC) 20 mg PO DAILY 0RF cholecalciferol (vitamin D3) 1,250 mcg (50,000 unit) capsule 1,250 mcg PO DAILY 0RF sennosides 8.6 mg Tablet 8.6 mg PO BID 0RF metformin 1,000 mg Tablet 500 mg PO BID 0RF pregabalin 100 mg Capsule 100 mg PO BID 0RF diltiazem HCl 120 mg capsule,extended release 24hr 120 mg PO DAILY Qty: 90 0RF Nasacort 55 mcg aerosol,spray 1 spray intranasal QAM Qty: 16.9 0RF Rx Instructions: administer into each nostril albuterol sulfate 90 mcg/actuation aerosol powdr breath activated 1 inh inhalation Q6H PRN (Reason: shortness of breath or wheezing) Qty: 1 0RF Discharge Orders: Discharge ED (Routine); Ordered 09/11/21 Ordered By: Charlene Perez Other Ambulatory Orders: DME: Oxygen (Order) Location: None Selected Ordered By: Charlene Perez Referrals: Surekha Harman MD [Primary Care Provider] - 1-3 days Discharge Diet: Advance as tolerated Discharge Activity: Resume usual activity Patient Instructions: COVID-19 (Coronavirus Disease 2019) (ED) Coding Level of Care Code ED Coding Compliance Auditor for Chg Fwd Exam Comprehensive
[2021-09-11 18:39] LABS: Alanine Aminotransferase 11 U/L (0-41); Albumin Level 3.5 g/dL (3.5-5.2); Alkaline Phosphatase 72 IU/L (40-130); Aspartate Amino Transferase 23 U/L (0-40); Blood Urea Nitrogen 25 mg/dL (8-23); Calcium 9.1 mg/dL (8.5-10.5); Carbon Dioxide 20 mmol/L (22-29); Chloride 98 mmol/L (98-107); Creatine Phosphokinase 73 U/L (39-308); Globulin 3.3 g/dL (1.3-4.6); Glucose 128 mg/dL (65-115); Osmolality Calculated 282 mOsm/kg (285-295); Sodium 133 mmol/L (136-145); Thyroid Stimulating Hormone 0.78 uIU/mL (0.27-4.20); Total Bilirubin 0.3 mg/dL (0.15-1.2); Total Protein 6.8 g/dL (6.6-8.7); Troponin(5th) Baseline 20 ng/L (0-15)
[2021-09-11] MEDS: sodium chloride 0.9% 1,000 ML 999 ML IV (18:40)
[2021-09-11 18:41] LABS: Anion Gap 18.9 (5-19); Potassium 3.9 mmol/L (3.5-5.1)
--- NOTE | 2021-09-11 19:35 | ECG_ITS ---
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 Measurements Intervals [place] Rate: 102 P: 54 PA: 145 QRS: -41 QRSD: 67 T: 84 QT: 332 QTc: 434 Interpretive Statements SINUS TACHYCARDIA LOW QRS VOLTAGE [QRS DEFLECTION < 0.5/1.0 mV IN LIMB/CHEST LEADS] INFERIOR MYOCARDIAL INFARCTION , PROBABLY OLD [40+ ms Q WAVE AND/OR ST/T ABNORMALITY IN II/aVF] ANTEROSEPTAL MYOCARDIAL INFARCTION , OF INDETERMINATE AGE [40+ ms Q WAVE IN V1-V4] Compared to ECG 09/11/2021 16:51:50 Low QRS voltage now present Myocardial infarct finding now present Atrial flutter no longer present T-wave abnormality no longer present Electronically Signed On 09-12-2021 7:07:16 PICKLE CUTTER by Brittany Henderson M.D. [id number]
[2021-09-11 20:05] LABS: Add Urine Microscopic? YES; Bilirubin Urine 1+ (Negative); Blood Urine 3+ (Negative); Glucose Urine UA Trace (Normal); Ketones Urine Negative (Negative); Leukocyte Esterase Urine Negative (Negative); Nitrate Urine Negative (Negative); Protein Urine 2+ (Negative); Specific Gravity, Urine 1.025 (1.005-1.030); Urine Appearance Clear (CLEAR); Urine Color Yellow (Yellow); Urobilinogen Urine 1 mg/dL (Negative); pH Urine 5 (5-7)
[2021-09-11 20:07] LABS: Bacteria Urine 2+ /hpf; Hyaline Casts Urine 0-4 /lpf; Mucus Urine 3+ /hpf; RBC Urine 15-25 /hpf (0-2); Red Blood Cell Casts Urine RARE /lpf; Squamous Epithelial Cell Urine RARE /hpf (0-5); WBC Urine RARE /hpf (0-5)
[2021-09-11 20:08] LABS: Add Urine Culture? Yes
[2021-09-11 20:24] LABS: D Dimer 0.98 ug/mIFEU (0-0.59)
[2021-09-11 20:27] LABS: Adenovirus Not Detected (NOT DETECT); Chlamydia Pneumoniae Not Detected (NOT DETECT); Coronavirus 229E,HKU1,NL63,OC4 Not Detected (NOT DETECT); Human Metapneumovirus Not Detected (NOT DETECT); Human Rhinovirus/Enterovirus Not Detected (NOT DETECT); Influenza A Not Detected (NOT DETECT); Influenza A H1 Not Detected (NOT DETECT); Influenza A H1-2009 Not Detected (NOT DETECT); Influenza A H3 Not Detected (NOT DETECT); Influenza B Not Detected (NOT DETECT); Mycoplasma Pneumoniae Not Detected (NOT DETECT); Parainfluenza Virus Type 1 Not Detected (NOT DETECT); Parainfluenza Virus Type 2 Not Detected (NOT DETECT); Parainfluenza Virus Type 3 Not Detected (NOT DETECT); Parainfluenza Virus Type 4 Not Detected (NOT DETECT); Respiratory Syncytial Virus A Not Detected (NOT DETECT); Respiratory Syncytial Virus B Not Detected (NOT DETECT); SARS-COV-2 Detected (NOT DETECT)
--- NOTE | 2021-09-11 20:27 | CTR_ITS ---
PROCEDURE INFORMATION: Exam: CTA Chest With Contrast Exam date and time: 09/11/2021 8:27 PM Age: 71 years old Clinical indication: Abnormal findings; Abnormal diagnostic tests; Elevated d-dimer; Cough and shortness of breath; Prior surgery; Surgery type: Gb; Patient HX: Cough with SOB. Elevated d dimer. Covid + TECHNIQUE: Imaging protocol: Computed tomographic angiography of the chest with contrast. 3D rendering (Not supervised by radiologist): MIP and/or 3D reconstructed images were created by the technologist. Radiation optimization: All CT scans at this facility use at least one of these dose optimization techniques: automated exposure control; mA and/or kV adjustment per patient size (includes targeted exams where dose is matched to clinical indication); or iterative reconstruction. Contrast material: VISI 320; Contrast volume: 144 ml; Contrast route: INTRAVENOUS (IV); COMPARISON: CT chest wo con [id number] 04/12/2021 10:03 AM RADIATION DOSE METRICS: Total DLP (mGy-cm): 1280.13 FINDINGS: Pulmonary arteries: Normal. No pulmonary emboli. Aorta: Unremarkable. No aortic aneurysm. No aortic dissection. Lungs: Moderate severity centrilobular emphysema. Posterior left upper lobe calcified granuloma. Patchy ground-glass parenchymal changes in both lower lobes greater on left than right. Additional small patchy ground-glass foci in the left upper lobe. Mild degree of bronchial wall thickening diffusely. No bronchiectasis. No peripheral honeycombing. Pleural spaces: Unremarkable. No pneumothorax. No pleural effusion. Heart: Unremarkable. No cardiomegaly. No pericardial effusion. Lymph nodes: Negative for mediastinal lymphadenopathy. Diaphragm: Mild hiatal hernia. Gallbladder and bile ducts: Cholecystectomy. Kidneys and ureters: Simple left renal upper pole cortical cyst. Small simple right renal upper pole cortical cyst. Bones/joints: Unremarkable. No acute fracture. Soft tissues: Unremarkable. Other findings: Bilateral hilar calcified granulomas. CT/CT angio chest PE protcl [id number] IMPRESSION: 1. Patchy ground-glass parenchymal lesions in both lungs which may reflect sequela of pneumonia. 2. Negative for pulmonary embolism. COMMENTS: Consistent with the [employer]'s Incidental Findings Committee white paper (J Am Shanna Radiol 2018): Any incidental renal lesion less than 1 cm or classified as too small to characterize, or any incidental cystic renal lesion characterized as simple-appearing, is likely benign. No follow-up imaging is recommended for these lesions per consensus recommendations based on imaging criteria.
[2021-09-11 20:36] LABS: Lactic Sepsis W/Reflex 0.9 mmol/L (0.5-2.2)
--- NOTE | 2021-09-11 20:48 | PC.NURSE ---
received report. patient came in with c/o bilateral leg weakness. he has productive cough. Low O2 sat. He is covid +. He is on O2 3L.
[2021-09-11 21:14] LABS: Troponin 5 2HR 19.66 ng/L (0-15)
[2021-09-11 21:17] LABS: Troponin 5 2HR Delta -0.34 ABS# (0-10)
[2021-09-11] MEDS: dexamethasone 10 mg/mL INJ IVP (21:31)
[2021-09-11] MEDS: iodixanol 320 mg/mL 100mL Btl IV ×2 (21:56→22:03)
--- NOTE | 2021-09-12 14:38 | PC.NURSE ---
Pt is notified (+) COVID
== END 2021-09-11 23:41 | disposition home or self-care (01) ==
PROVIDERS: Family Medicine; Emergency Provider Emergency Medicine; PCP Family Medicine
DX: U07.1 COVID-19 (principal); Z79.84 Long term (current) use of oral hypoglycemic drugs; E11.9 Type 2 diabetes mellitus without complications; F17.210 Nicotine dependence, cigarettes, uncomplicated
CPT/HCPCS: 71045; 71275; 80053; 81001; 82550; 83605; 84443; 84484; 85025; 85378; 87040; 87086; 87635; 93005; 96361; 96374; 99284; J1100; J7030; Q9967

== ENCOUNTER 2022-03-06 13:12 | Emergency (ER) | payer OTHER, SELFPAY ==
[2022-03-06 13:32] VITALS: BP 103/63; PULSE 60; RESP 18; TEMP 36.1; O2SAT 94; BMI 25.0
[2022-03-06 13:44] VITALS: BP 159/90; PULSE 65; RESP 18; TEMP 36.6; O2SAT 93; BMI 29.0
--- NOTE | 2022-03-06 13:52 | W.ED.EXTPRO ---
HPI - Extremity Problem General: Chief complaint: Extremity Injury, Upper 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: left shoulder pain Time Seen by Provider: 03/06/22 13:51 History of Present Illness: A 71-year-old male patient comes in today for evaluation of injury to the left shoulder. Patient reports he was reaching over to get something off his nightstand when he accidentally rolled out of bed landing on his left shoulder. Patient reported severe pain with the fall. Patient came in for evaluation due to persistent discomfort. Patient has a history of nicotine dependence, peripheral neuropathy, chronic back pain. Tenderness is noted on palpation of the shoulder with no obvious deformity. 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 Pain management contract signed Surgical History H/O arthroscopic knee surgery History of ankle surgery History of back surgery Hx of cholecystectomy Family History Other Hypertension Stroke Denies family history of Diabetes CAD (coronary artery disease) Social History Smoking and tobacco status: current some day smoker cigarettes [ Other cigarette details: 3-4 CIGS DAY ] Alcohol intake: never Caregiver/support person: Yes Lives independently: Yes Household members: spouse Marital status: History of recent travel: No Physical Exam Const: COMMON NORMALS: alert HENMT: COMMON NORMALS: atraumatic HEAD & SCALP: atraumatic Neck/C-Spine: COMMON NORMALS: full ROM CERVICAL SPINE: No Cervical spine tenderness Chest: COMMONS NORMALS: normal palpation of entire chest wall Resp: COMMON NORMALS: normal respiratory effort and clear to auscultation bilaterally AUSCULTATION: clear to auscultation bilaterally Cardio: COMMON NORMALS: regular rate and regular rhythm RATE: regular rate RHYTHM: regular rhythm GI: COMMON NORMALS: Normal to inspection, nondistended, normoactive bowel sounds present Back/Pelvis: THORACIC SPINE/UPPER BACK: No thoracic spinal tenderness LUMBAR SPINE/LOWER BACK: No lumbar spinal tenderness Extremity: COMMON NORMALS: normal to inspection Neuro: SENSORIUM/ORIENTATION: Yes alert Skin: COMMON NORMALS: no rashes or lesions noted GENERAL SKIN EXAM: no rashes or lesions noted Course Vital Signs: Vital signs: Vital Signs Temperature 98.6 F 03/06/22 14:47 Pulse Rate 60 03/06/22 14:47 Respiratory Rate 18 03/06/22 13:44 Blood Pressure 155/91 03/06/22 14:47 Pulse Oximetry 94 03/06/22 14:47 Oxygen Delivery Me thod 03/06/22 14:47 MDM - Extremity (Nontraumatic) Medical Decision Making 71-year-old male patient comes in today for injury to the left shoulder. Patient reports pain and discomfort with movement of the left shoulder. Exam notes no obvious injury. Patient has no pain on palpation of the neck or spine. Chest wall is nontender to palpation. Anterior shoulder has tenderness and pain with movement. Differential diagnosis includes fracture, contusion, rotator cuff injury. X-ray was unremarkable except for degenerative changes. Reviewed exam with patient recommended Celebrex and hydrocodone for his discomfort. Recommend follow-up with primary care for further instructions. Patient reported understanding and agreed to plan. Lab Data Radiology Impressions Humerus X-Ray 03/06/22 13:56 IMPRESSION: Negative left humerus. Shoulder X-Ray 03/06/22 13:56 IMPRESSION: 1. No acute fracture or dislocation. 2. AC joint DJD. Possible calcific bursitis or tendinitis. Discharge Plan Discharge Patient Disposition: Home Clinical Impression: Injury of left shoulder Qualifiers: Encounter type: initial encounter Qualified Code(s): S49.92XA - Unspecified injury of left shoulder and upper arm, initial encounter Condition: Stable Prescriptions: New Celebrex 200 mg capsule 200 mg PO DAILY Qty: 14 0RF hydrocodone-acetaminophen 5-325 mg tablet 1 tab PO Q6H PRN (Reason: pain (scale score 7-10)) Qty: 10 0RF No Action pravastatin 40 mg tablet 20 mg PO DAILY Rx Instructions: DOSE CHANGE lisinopril 40 mg tablet 40 mg PO DAILY omeprazole 20 mg capsule,delayed release(DR/EC) 20 mg PO DAILY cholecalciferol (vitamin D3) 1,250 mcg (50,000 unit) capsule 1,250 mcg PO DAILY sennosides 8.6 mg Tablet 8.6 mg PO BID metformin 1,000 mg Tablet 500 mg PO BID pregabalin 100 mg Capsule 100 mg PO BID diltiazem HCl 120 mg capsule,extended release 24hr 120 mg PO DAILY Qty: 90 0RF Nasacort 55 mcg aerosol,spray 1 spray intranasal QAM Qty: 16.9 0RF Rx Instructions: administer into each nostril albuterol sulfate 90 mcg/actuation aerosol powdr breath activated 1 inh inhalation Q6H PRN (Reason: shortness of breath or wheezing) Qty: 1 0RF Discharge Orders: Discharge ED (Routine); Ordered 03/06/22 Ordered By: Ahmet Haider Referrals: Surekha Harman MD [Primary Care Provider] - Discharge Diet: Usual diet Discharge Activity: Increase activity as tolerated Patient Instructions: Rotator Cuff Injury (ED), Opioid Safety Activity Restrictions/Additional Instructions: Activity as tolerated. Gentle stretching and range of motion exercises of the shoulder. Use ice or heat to the area for comfort. Use acetaminophen to control pain. Use Celebrex for pain and inflammation routinely. Do not use ibuprofen or naproxen while taking Celebrex. Use hydrocodone for severe pain. Follow-up with primary care for further evaluation and treatment. Return to ER for new concerns. Coding Level of Care Code ED Parimutuel Ticket Checker for Sarah Sheth
--- NOTE | 2022-03-06 13:56 | XR_ITS ---
WS: [id number] Exam: XR shoulder LT min 2V* [id number] Date/Time of Exam: 03/06/2022 2:03 PM Reason For Exam: fall injury No fracture or dislocation. Mild DJD and spurring at the AC joint. Soft tissue calcification along th e humeral head that might represent calcific bursitis or tendinitis. XR/XR shoulder LT min 2V* [id number] IMPRESSION: 1. No acute fracture or dislocation. 2. AC joint DJD. Possible calcific bursitis or tendinitis.
--- NOTE | 2022-03-06 13:56 | XR_ITS ---
WS: [id number] Exam: [place] [id number] Date/Time of Exam: 03/06/2022 2:03 PM Reason For Exam: fall injury Findings: There are no fractures or bone anomalies. The bony elements are in adequate alignment. There are no soft tissue calcifications or infiltration. The joint spaces are smooth and intact. XR/[place] [id number] IMPRESSION: Negative left humerus.
[2022-03-06] MEDS: HYDROcodone-acetaminophen 7.5-325 mg Tablet 1 TAB PO (14:06)
[2022-03-06 14:47] VITALS: BP 155/91; PULSE 60; TEMP 37; O2SAT 94
== END 2022-03-06 15:18 | disposition home or self-care (01) ==
PROVIDERS: Emergency Provider Nurse Practitioner Family; PCP Family Medicine
DX: S49.92XA Unspecified injury of left shoulder and upper arm, initial encounter (principal); Z79.84 Long term (current) use of oral hypoglycemic drugs; E11.9 Type 2 diabetes mellitus without complications; F17.210 Nicotine dependence, cigarettes, uncomplicated; W06.XXXA Fall from bed, initial encounter
CPT/HCPCS: 73030; 73060; 99283

== ENCOUNTER 2022-04-08 17:12 | Emergency (ER) | payer OTHER, SELFPAY ==
[2022-04-08 17:28] VITALS: BMI 31.8
--- NOTE | 2022-04-08 17:32 | ECG_ITS ---
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 Measurements Intervals [place] Rate: 63 P: 78 PA: 218 QRS: 62 QRSD: 84 T: 75 QT: 397 QTc: 407 Interpretive Statements SINUS RHYTHM WITH FIRST DEGREE AV BLOCK Compared to ECG 09/11/2021 18:55:09 First degree AV block now present Sinus tachycardia no longer present Myocardial infarct finding no longer present Electronically Signed On 04-09-2022 16:35:00 CDT by Александр Keenan M.D. [id number] f
--- NOTE | 2022-04-08 17:32 | ECG_ITS ---
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 Measurements Intervals [place] Rate: 63 P: 78 WI: 218 QRS: 62 QRSD: 84 T: 75 QT: 397 QTc: 407 Interpretive Statements SINUS RHYTHM WITH FIRST DEGREE AV BLOCK Compared to ECG 09/11/2021 18:55:09 First degree AV block now present Sinus tachycardia no longer present Myocardial infarct finding no longer present Electronically Signed On 04-09-2022 16:27:52 CDT by Александр Keenan M.D. [email or web address]/[id number] f
--- NOTE | 2022-04-08 17:33 | XRR_ITS ---
PROCEDURE INFORMATION: Exam: XR Chest Exam date and time: 04/08/2022 8:26 PM Age: 71 years old Clinical indication: Chest wall pain; Additional info: Chest pain TECHNIQUE: Imaging protocol: Radiologic exam of the chest. Views: 1 view. COMPARISON: CR XR chest 1V portable [id number] 09/11/2021 6:25 PM FINDINGS: Lungs: Unremarkable. No consolidation. Pleural spaces: Unremarkable. No pleural effusion. No pneumothorax. Heart/Mediastinum: Unremarkable. No cardiomegaly. Bones/joints: Unremarkable. XR/XR chest 1V portable [id number] IMPRESSION: No acute findings.
[2022-04-08 17:43] LABS: Basophils % 0.3 %; Eosinophils # 0.1 10^3/uL (0.0-0.8); Eosinophils % 1.4 %; Hematocrit 41.9 % (42.0-52.0); Hemoglobin 13.7 g/dL (11.7-16.6); Lymphocytes % 25.3 %; Mean Corpuscular HGB Conc 32.7 g/dL (30.0-36.0); Mean Corpuscular Hemoglobin 30.6 pg (28.0-34.0); Mean Corpuscular Volume 93.7 fl (80-94); Mean Platelet Volume 9.9 fL (7.4-10.4); Monocytes # 0.6 10^3/uL (0.2-0.9); Monocytes % 7.7 %; Nucleated Red Blood Cells % 0 %; Platelet Count 235 10^3/cmm (130-400); Red Blood Count 4.47 10^6/uL (4.1-5.3); White Blood Count 7.8 10^3/uL (4.0-10.0)
[2022-04-08 18:03] LABS: Troponin(5th) Baseline 13 ng/L (0-15)
[2022-04-08 18:04] LABS: Alanine Aminotransferase 13 U/L (0-41); Albumin Level 4.3 g/dL (3.5-5.2); Alkaline Phosphatase 74 U/L (40-130); Anion Gap 16.3 (5-19); Aspartate Amino Transferase 18 U/L (0-40); Blood Urea Nitrogen 18 mg/dL (8-23); Calcium 9.2 mg/dL (8.5-10.5); Carbon Dioxide 27 mmol/L (22-29); Chloride 105 mmol/L (98-107); Globulin 2.9 g/dL (1.3-4.6); Glucose 89 mg/dL (65-115); Osmolality Calculated 299 mOsm/kg (285-295); Potassium 4.3 mmol/L (3.5-5.1); Sodium 144 mmol/L (136-145); Total Bilirubin 0.4 mg/dL (0.15-1.2); Total Protein 7.2 g/dL (6.6-8.7)
[2022-04-08 20:31] LABS: Troponin 5 2HR 12.81 ng/L (0-15)
[2022-04-08 21:02] LABS: Troponin 5 2HR Delta -0.19 ABS# (0-10)
--- NOTE | 2022-04-08 21:45 | ED_ITS ---
HPI - Chest Pain General: Chief Complaint: Chest Pain Stated Complaint: chest pain, abd pain Time Seen by Provider: 04/08/22 21:34 Source: patient Mode of arrival: ambulatory Limitations: no limitations History of Present Illness: 71-year-old male states he has been having abdominal and chest pain for months. He states that symptoms like he has pain on the side that he sleeps on a wakes up with a sharp abdominal pain along with some chest pain. Denies any fever denies any shortness of breath he states he has not seen his PCP for this. Denies any pain currently. Denies any vomiting or diarrhea. 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 Pain management contract signed Surgical History H/O arthroscopic knee surgery History of ankle surgery History of back surgery Hx of cholecystectomy Family History Other Hypertension Stroke Denies family history of Diabetes CAD (coronary artery disease) Social History Smoking and tobacco status: current some day smoker cigarettes [ Other cigarette details: 3-4 CIGS DAY ] Alcohol intake: never Caregiver/support person: Yes Lives independently: Yes Household members: spouse Marital status: History of recent travel: No Physical Exam Const: COMMON NORMALS: no acute distress, patient oriented x3 and healthy appearing HENMT: COMMON NORMALS: normocephalic and atraumatic HEAD & SCALP: normocephalic and atraumatic Eye: COMMON NORMALS: Equal, round and reactive pupils present and EOMs intact bilaterally PUPIL: Yes Equal, round and reactive pupils present Neck/C-Spine: COMMON NORMALS: full ROM and supple Chest: COMMONS NORMALS: normal inspection of the chest and normal palpation of entire chest wall Resp: COMMON NORMALS: normal respiratory effort, No retractions, No use of accessory muscles and clear to auscultation bilaterally AUSCULTATION: clear to auscultation bilaterally Cardio: COMMON NORMALS: regular rate, regular rhythm and No murmurs present (Cardio) RATE: regular rate RHYTHM: regular rhythm GI: COMMON NORMALS: Normal to inspection, nondistended, normoactive bowel sounds present, Soft to palpation, non-tender and no masses PALPATION: Yes Soft to palpation Extremity: COMMON NORMALS: normal to inspection and full ROM Neuro: COMMON NORMALS: patient oriented x3, moves all extremities and no focal motor deficits Psych: COMMON NORMALS: mental status grossly normal, Normal thought process present and cooperative THOUGHT PROCESS: Normal thought process present Skin: COMMON NORMALS: no rashes or lesions noted and no wounds GENERAL SKIN EXAM: no rashes or lesions noted MDM - Chest Pain Medical Decision Making Patient presents here with chest and abdominal pain that is been going on for months he been pain-free here blood work is all normal troponins EKG are normal as well he has no signs of acute coronary syndrome he has no signs of pulmonary embolism he is stable for discharge he is to follow-up with his PCP for symptoms in 3 to 5 days. Lab Data : 04/08/22 17:40 04/08/22 17:40 Radiology Impressions Chest X-Ray 04/08/22 17:33 IMPRESSION: No acute findings. Laboratory Results WBC 7.8 10^3/uL (4.0-10.0) 04/08/22 17:40 RBC 4.47 10^6/uL (4.1-5.3) 04/08/22 17:40 Hgb 13.7 g/dL (11.7-16.6) 04/08/22 17:40 Hct 41.9 % (42.0-52.0) L 04/08/22 17:40 MCV 93.7 fl (80-94) 04/08/22 17:40 MCH 30.6 pg (28.0-34.0) 04/08/22 17:40 MCHC 32.7 g/dL (30.0-36.0) 04/08/22 17:40 RDW 14.0 % (12.1-15.1) 04/08/22 17:40 Plt Count 235 10^3/cmm (130-400) 04/08/22 17:40 MPV 9.9 fL (7.4-10.4) 04/08/22 17:40 Neut % (Auto) 65.0 % 04/08/22 17:40 Lymph % (Auto) 25.3 % 04/08/22 17:40 Arthur % (Auto) 7.7 % 04/08/22 17:40 Eos % (Auto) 1.4 % 04/08/22 17:40 Baso % (Auto) 0.3 % 04/08/22 17:40 Neut # (Auto) 5.10 10^3/uL (1.8-7.7) 04/08/22 17:40 Lymph # (Auto) 2.0 10^3/uL (0.8-4.8) 04/08/22 17:40 Arthur # (Auto) 0.6 10^3/uL (0.2-0.9) 04/08/22 17:40 Eos # (Auto) 0.1 10^3/uL (0.0-0.8) 04/08/22 17:40 Baso # (Auto) 0.0 10^3/uL (0.0-0.1) 04/08/22 17:40 Nucleated RBC % (auto) 0 % 04/08/22 17:40 Nucleated RBCs # 0.0 /100WBC 04/08/22 17:40 Sodium 144 mmol/L (136-145) 04/08/22 17:40 Potassium 4.3 mmol/L (3.5-5.1) 04/08/22 17:40 Chloride 105 mmol/L (98-107) 04/08/22 17:40 Carbon Dioxide 27 mmol/L (22-29) 04/08/22 17:40 Anion Gap 16.3 (5-19) 04/08/22 17:40 BUN 18 mg/dL (8-23) 04/08/22 17:40 Creatinine 0.9 mg/dL (0.7-1.2) 04/08/22 17:40 GFR Calculation Not Reportable 04/08/22 17:40 Glucose 89 mg/dL (65-115) 04/08/22 17:40 Calculated Osmolality 299 mOsm/kg (285-295) H 04/08/22 17:40 Calcium 9.2 mg/dL (8.5-10.5) 04/08/22 17:40 Total Bilirubin 0.4 mg/dL (0.15-1.2) 04/08/22 17:40 AST 18 U/L (0-40) 04/08/22 17:40 ALT 13 U/L (0-41) 04/08/22 17:40 Alkaline Phosphatase 74 U/L (40-130) 04/08/22 17:40 Troponin T Baseline 13 ng/L (0-15) 04/08/22 17:40 Troponin T 120 Minute 12.81 ng/L (0-15) 04/08/22 19:55 Delta Troponin T -0.19 ABS# (0-10) L 04/08/22 19:55 Total Protein 7.2 g/dL (6.6-8.7) 04/08/22 17:40 Albumin 4.3 g/dL (3.5-5.2) 04/08/22 17:40 Globulin 2.9 g/dL (1.3-4.6) 04/08/22 17:40 EKG Data EKG 1: I personally reviewed and interpreted this EKG as follows: EKG interpretation date: 04/08/22 EKG interpretation time: 17:32 Interpretation: nsr hr [address] or t wave abnormalities qrs 84 qtc 404 Discharge Plan Discharge Patient Disposition: Home Clinical Impression: Chest pain, Abdominal pain Condition: Stable Prescriptions: No Action pravastatin 40 mg tablet 20 mg PO DAILY Rx Instructions: DOSE CHANGE lisinopril 40 mg tablet 40 mg PO DAILY omeprazole 20 mg capsule,delayed release(DR/EC) 20 mg PO DAILY cholecalciferol (vitamin D3) 1,250 mcg (50,000 unit) capsule 1,250 mcg PO DAILY sennosides 8.6 mg Tablet 8.6 mg PO BID metformin 1,000 mg Tablet 500 mg PO BID pregabalin 100 mg Capsule 100 mg PO BID diltiazem HCl 120 mg capsule,extended release 24hr 120 mg PO DAILY Qty: 90 0RF Nasacort 55 mcg aerosol,spray 1 spray intranasal QAM Qty: 16.9 0RF Rx Instructions: administer into each nostril albuterol sulfate 90 mcg/actuation aerosol powdr breath activated 1 inh inhalation Q6H PRN (Reason: shortness of breath or wheezing) Qty: 1 0RF Celebrex 200 mg capsule 200 mg PO DAILY Qty: 14 0RF hydrocodone-acetaminophen 5-325 mg tablet 1 tab PO Q6H PRN (Reason: pain (scale score 7-10)) Qty: 10 0RF Discharge Orders: Discharge ED (Routine); Ordered 04/08/22 Ordered By: Charlene Perez Referrals: Surekha Harman MD [Primary Care Provider] - 1-3 days Discharge Activity: Resume usual activity Patient Instructions: Chest Pain (ED), Abdominal Pain (ED) Coding Level of Care Code ED Pickup Driver for Chg Fwd Exam Comprehensive
[2022-04-08 22:07] VITALS: BP 145/83; PULSE 58; RESP 20; O2SAT 93
== END 2022-04-08 22:05 | disposition home or self-care (01) ==
PROVIDERS: Family Medicine; Emergency Provider Emergency Medicine; PCP Family Medicine
DX: R07.9 Chest pain, unspecified (principal); R10.9 Unspecified abdominal pain; Z79.84 Long term (current) use of oral hypoglycemic drugs; E11.9 Type 2 diabetes mellitus without complications; F17.210 Nicotine dependence, cigarettes, uncomplicated
CPT/HCPCS: 36415; 71045; 80053; 84484; 85025; 93005; 99285

== ENCOUNTER 2022-11-12 17:39 | Emergency (ER) | payer OTHER, SELFPAY ==
[2022-11-12 17:47] VITALS: BP 150/76; PULSE 68; RESP 18; TEMP 36.5; O2SAT 93; BMI 31.8
--- NOTE | 2022-11-12 17:59 | ED_ITS ---
HPI - Back Pain/Injury General: Chief Complaint: Back Pain/Injury Stated Complaint: Pinch nerve on leg and back is burning Time Seen by Provider: 11/12/22 17:58 Source: patient Mode of arrival: wheelchair Limitations: no limitations History of Present Illness: Patient is a nice 72-year-old male who presents to ED today along with his for concerns of lower back pain over the past 2 weeks or so. Patient states he has a longstanding history of lower back pain but states over the last 2 weeks his pain has been worse in severity. He states his pain seems to radiate down the left leg and feels like the leg is weak and sometimes will cause him to fall. He states he will normally be able to catch himself prior to the fall and has had not any direct injury or trauma or injuries related to falls. Patient denies saddle anesthesia. Denies bowel/bladder incontinence/retention. MD elicited complaint: back pain Onset (ago): week(s) (2 weeks) Timing: constant Severity: severe Pain scale (0-10): 8 Location: lumbar spine and left lower back Radiation: left leg below the knee Exacerbating factors: movement and walking Relieving factors: none Associated symptoms: Reports no associated symptoms; Deny abdominal pain, chills, difficulty walking, dysuria, fatigue, fever(s) or hematuria Work related injury: No Review of Systems Const: Denies: fever(s), chills, body aches, fatigue or malaise Card: Denies: chest pain Resp: Denies: dyspnea GI: Denies: abdominal pain : Denies: flank pain, difficulty urinating, dysuria, urinary hesitancy, urinary incontinence or hematuria Musc: Reports: back pain and extremity pain; Denies: neck pain, extremity swelling, joint pain, joint swelling, joint redness or joint warmth Neuro: Reports: weakness in extremities (L LE); Denies: headache(s), numbness in extremities, sensory changes, lack of coordination, difficulty walking or dizziness [facility] ED PFSH: Medical History Diabetes 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 Pain management contract signed Surgical History H/O arthroscopic knee surgery History of ankle surgery History of back surgery Hx of cholecystectomy Family History Other Hypertension Stroke Denies family history of Diabetes CAD (coronary artery disease) Social History Smoking and tobacco status: current some day smoker cigarettes [ Other cigarette details: 3-4 CIGS DAY ] Alcohol intake: never Caregiver/support person: Yes Lives independently: Yes Household members: spouse Marital status: Physical Exam Const: COMMON NORMALS: no acute distress, average body habitus, patient oriented x3, no limitations, alert and well nourished ORIENTATION/CONSCIOUSNESS: Yes awake, Yes oriented to person, Yes oriented to place and Yes oriented to time HENMT: COMMON NORMALS: normocephalic and atraumatic HEAD & SCALP: normal to inspection, normocephalic and atraumatic Resp: COMMON NORMALS: normal respiratory effort Back/Pelvis: THORACIC SPINE/UPPER BACK: Yes normal to inspection, No thoracic spinal tenderness, No paraspinal muscle tenderness and No paraspinal muscle spasm LUMBAR SPINE/LOWER BACK: Yes lumbar spinal tenderness, No paraspinal muscle tenderness, No paraspinal muscle spasm and Yes straight leg raise negative bilaterally PELVIS: Yes buttocks normal and Yes sciatic notch tenderness SACROILIAC JOINTS: Yes SI joint(s) abnormal SI joint details: tender to palpation SACRUM: no tenderness COCCYX: no tenderness Extremity: COMMON NORMALS: normal to inspection GENERAL: Yes normal exam except as noted Neuro: RICK COMA SCALE: document [facility]CS findings [place] coma scale eye opening: Spontaneous Rick coma scale verbal response: Orientated Rcik coma scale motor response: Obey commands [place] coma scale total score: 15 COMMON NORMALS: patient oriented x3, moves all extremities, no focal motor deficits and no sensory deficits noted SENSORIUM/ORIENTATION: Yes alert, Yes oriented to person, Yes oriented to place and Yes oriented to time MOTOR EXAM: 5/5 motor strength present throughout Skin: COMMON NORMALS: no rashes or lesions noted GENERAL SKIN EXAM: no rashes or lesions noted Course Vital Signs: Vital signs: Vital Signs Temperature 97.7 F 11/12/22 17:47 Pulse Rate 68 11/12/22 17:47 Respiratory Rate 18 11/12/22 17:47 Blood Pressure 150/76 11/12/22 17:47 Pulse Oximetry 93 11/12/22 17:47 Oxygen Delivery Me thod 11/12/22 17:47 MDM - Back Pain/Injury Medical Decision Making CT lumbar spine showing progressive degenerative changes. Recommend he follow- up with primary care provider for possible MRI imaging outpatient. He will be provided a small amount of pain medication and steroids to help with this discomfort. Patient is stable for discharge. Labs Radiology Impressions Lumbar Spine CT 11/12/22 18:17 IMPRESSION: 1. No acute findings. 2. Interval L4-L5 laminectomy. Multilevel degenerative disc disease appears progressive. Apparent moderate spinal canal stenosis L3-L4 above the laminectomy and progressive degenerative disc disease at L5-S1 possibly with mild persistent stenosis after laminectomy. This can be further characterized by MRI. Discharge Plan Discharge Patient Disposition: Home Clinical Impression: Facet arthritis, degenerative, lumbar spine, Low back pain Condition: Stable Prescriptions: New Medrol (Ciro) 4 mg tablets,dose pack See Rx Instructions .ROUTE .COMPLEX Qty: 21 0RF Rx Instructions: orally per package directions Continued hydrocodone-acetaminophen 5-325 mg tablet 1 tab PO Q6H PRN (Reason: pain (scale score 7-10)) Qty: 10 0RF No Action pravastatin 40 mg tablet 20 mg PO DAILY Rx Instructions: DOSE CHANGE lisinopril 40 mg tablet 40 mg PO DAILY omeprazole 20 mg capsule,delayed release(DR/EC) 20 mg PO DAILY cholecalciferol (vitamin D3) 1,250 mcg (50,000 unit) capsule 1,250 mcg PO DAILY sennosides 8.6 mg Tablet 8.6 mg PO BID metformin 1,000 mg Tablet 500 mg PO BID pregabalin 100 mg Capsule 100 mg PO BID diltiazem HCl 120 mg capsule,extended release 24hr 120 mg PO DAILY Qty: 90 0RF Nasacort 55 mcg aerosol,spray 1 spray intranasal QAM Qty: 16.9 0RF Rx Instructions: administer into each nostril albuterol sulfate 90 mcg/actuation aerosol powdr breath activated 1 inh inhalation Q6H PRN (Reason: shortness of breath or wheezing) Qty: 1 0RF Celebrex 200 mg capsule 200 mg PO DAILY Qty: 14 0RF Discharge Orders: Discharge ED (Routine); Ordered 11/12/22 Ordered By: Bethany Cooper Referrals: Surekha Harman MD [Primary Care Provider] - Patient Instructions: Opioid Safety, Pain Management Activity Restrictions/Additional Instructions: As we discussed please follow-up with your primary care provider for further evaluation/treatment of your lower back pain. Coding Level of Care Code ED Technology Officer for Sarah Sheth
--- NOTE | 2022-11-12 18:17 | CTR_ITS ---
PROCEDURE INFORMATION: Exam: CT Lumbar Spine Without Contrast Exam date and time: 11/12/2022 6:41 PM Age: 72 years old Clinical indication: Weakness; Low back pain; Additional info: Back pain, L leg weakness TECHNIQUE: Imaging protocol: Computed tomography of the lumbar spine without contrast. Radiation optimization: All CT scans at this facility use at least one of these dose optimization techniques: automated exposure control; mA and/or kV adjustment per patient size (includes targeted exams where dose is matched to clinical indication); or iterative reconstruction. REPORTING DATA: Count of CT and Cardiac NM exams in prior 12 months: This patient has received 0 known CTs and 0 known cardiac nuclear medicine studies in the 12 months prior to the current study. COMPARISON: MR lumbar spine wo con* [id number] 02/26/2019 10:18 AM RADIATION DOSE METRICS: Total DLP (mGy-cm): 892.53 FINDINGS: Bones/joints: L4-L5 laminectomy postoperative changes are present since the previous CT. The alignment of the spine is near anatomic. There is disc space height loss is vacuum cleft L4-S1 disc spaces. No acute displaced fracture. Diffuse disc bulging and facet arthritis cause moderate stenosis of the spinal canal L3-L4 above the laminectomies which appears progressive. Diffuse disc bulging L5-S1 appears progressive since the preoperative study with possible mild stenosis despite laminectomy. Stomach and bowel: Colonic diverticuli. Soft tissues: Unremarkable. CT/CT lumbar spine wo con* [id number] IMPRESSION: 1. No acute findings. 2. Interval L4-L5 laminectomy. Multilevel degenerative disc disease appears progressive. Apparent moderate spinal canal stenosis L3-L4 above the laminectomy and progressive degenerative disc disease at L5-S1 possibly with mild persistent stenosis after laminectomy. This can be further characterized by MRI.
[2022-11-12] MEDS: dexamethasone 10 mg/mL INJ 8 MG IM (18:32)
== END 2022-11-12 19:54 | disposition home or self-care (01) ==
PROVIDERS: Emergency Provider Physician Assistant; PCP Family Medicine
DX: M47.896 Other spondylosis, lumbar region (principal); Z79.84 Long term (current) use of oral hypoglycemic drugs; E11.9 Type 2 diabetes mellitus without complications; F17.210 Nicotine dependence, cigarettes, uncomplicated
CPT/HCPCS: 72131; 96372; 99284; J1100

== ENCOUNTER → 2023-06-16 12:37 | Outpatient (BNVA) | payer OTHER, SELFPAY | PROVIDERS: PCP Family Medicine; Referring Provider Family Medicine; Visit Provider Surgery | DX: D64.9 Anemia, unspecified (principal) | CPT/HCPCS: 36415; 82728; 83540; 84466; 85025; 99203 ==

== ENCOUNTER → 2024-02-27 08:52 | Outpatient (BNVA) | payer OTHER, SELFPAY | PROVIDERS: PCP Family Medicine; Visit Provider Podiatrist Foot & Ankle Surgery | DX: L60.3 Nail dystrophy (principal); G62.9 Polyneuropathy, unspecified; E11.42 Type 2 diabetes mellitus with diabetic polyneuropathy; Z79.84 Long term (current) use of oral hypoglycemic drugs | CPT/HCPCS: 11721; 99203 ==

== ENCOUNTER → 2024-05-17 09:09 | Outpatient (BNVA) | payer OTHER, SELFPAY | PROVIDERS: PCP Family Medicine; Visit Provider Podiatrist Foot & Ankle Surgery | DX: L60.3 Nail dystrophy (principal); G62.9 Polyneuropathy, unspecified; E11.42 Type 2 diabetes mellitus with diabetic polyneuropathy; Z79.84 Long term (current) use of oral hypoglycemic drugs | CPT/HCPCS: 11721 ==

== ENCOUNTER 2024-06-28 22:45 | Inpatient (IN) | payer OTHER, MEDICARE, SELFPAY ==
[2024-06-28 22:51] VITALS: BP 134/88; PULSE 62; RESP 16; TEMP 36.8; O2SAT 95
--- NOTE | 2024-06-28 23:11 | CTR_ITS ---
PROCEDURE INFORMATION: Exam: CT Head Without Contrast Exam date and time: 06/28/2024 11:10 PM Age: 74 years old Clinical indication: Stroke-like symptoms; RT upper extremity weakness; Additional info: Rue/rle weakness parasthesia, CVA TECHNIQUE: Imaging protocol: Computed tomography of the head without contrast. Radiation optimization: All CT scans at this facility use at least one of these dose optimization techniques: automated exposure control; mA and/or kV adjustment per patient size (includes targeted exams where dose is matched to clinical indication); or iterative reconstruction. Other technique: STROKE PROTOCOL was implemented. COMPARISON: No relevant prior studies available. RADIATION DOSE METRICS: Total DLP (mGy-cm): 1101 FINDINGS: Brain: No focal hemorrhage or midline shift is identified. The ventricles and parenchyma show moderate atrophy and chronic bicerebral white matter ischemic change. Small chronic bifrontal subdural hygromas. Cerebral ventricles: No ventriculomegaly or evidence of hydrocephalus. Paranasal sinuses: The partially assessed sinuses are grossly clear. Mastoid air cells: Visualized mastoid air cells are well aerated. Bones: No displaced skull fracture is noted. Soft tissues: Unremarkable. Vasculature: Diffuse vascular calcifications are present. CT/CT head thrombolytic [id number] IMPRESSION: 1. No acute intracranial hemorrhage. 2. Extensive white matter disease is nonspecific. An MRI should be considered if indicated. 3. Moderate age-related changes. ASSESSMENT: ASPECTS ([place] Stroke Program Early CT Score) is 10.
--- NOTE | 2024-06-28 23:11 | CTR_ITS ---
PROCEDURE INFORMATION: Exam: CTA Head With Contrast, Arteriography Exam date and time: 06/28/2024 11:16 PM Age: 74 years old Clinical indication: Weakness; Additional info: Ruc/rle parasthesia weakness CVA TECHNIQUE: Imaging protocol: Computed tomographic angiography of the head with contrast. Exam focused on the arteries. 3D rendering (Not supervised by radiologist): MIP and/or 3D reconstructed images were created by the technologist. Radiation optimization: All CT scans at this facility use at least one of these dose optimization techniques: automated exposure control; mA and/or kV adjustment per patient size (includes targeted exams where dose is matched to clinical indication); or iterative reconstruction. Contrast material: OMNI 350; Contrast volume: 100 ml; Contrast route: INTRAVENOUS (IV); COMPARISON: CT head thrombolytic [id number] 06/28/2024 11:10 PM RADIATION DOSE METRICS: Total DLP (mGy-cm): 510.87 FINDINGS: ANTERIOR CIRCULATION: Right internal carotid artery: Intracranial segment is patent with no significant stenosis. No aneurysm. Right middle cerebral artery: No occlusion or significant stenosis. No aneurysm. Right anterior cerebral artery: No occlusion or significant stenosis. No aneurysm. Left internal carotid artery: Intracranial segment is patent with no significant stenosis. No aneurysm. Left middle cerebral artery: No occlusion or significant stenosis. No aneurysm. Left anterior cerebral artery: No occlusion or significant stenosis. No aneurysm. POSTERIOR CIRCULATION: Right vertebral artery: No occlusion or significant stenosis. No aneurysm. Left vertebral artery: No occlusion or significant stenosis. No aneurysm. Basilar artery: No occlusion or significant stenosis. No aneurysm. Right posterior cerebral artery: No occlusion or significant stenosis. No aneurysm. Left posterior cerebral artery: No occlusion or significant stenosis. No aneurysm. Brain: No focal hemorrhage or midline shift identified. The ventricles and parenchyma show moderate atrophy and chronic bicerebral white matter ischemic change. Small chronic bifrontal subdural hygromas. Cerebral ventricles: No evidence of ventriculomegaly or hydrocephalus. The ventricles seem age-appropriate. Bones/joints: Unremarkable. No acute fracture. Soft tissues: Unremarkable. PROCEDURE INFORMATION: Exam: CTA Neck With Contrast Exam date and time: 06/28/2024 11:16 PM Age: 74 years old Clinical indication: Weakness; Additional info: Ruc/rle parasthesia weakness CVA TECHNIQUE: Imaging protocol: Computed tomographic angiography of the neck with contrast. Exam focused on the cervical segments of the vasculature. 3D rendering (Not supervised by radiologist): MIP and/or 3D reconstructed images were created by the technologist. Radiation optimization: All CT scans at this facility use at least one of these dose optimization techniques: automated exposure control; mA and/or kV adjustment per patient size (includes targeted exams where dose is matched to clinical indication); or iterative reconstruction. Contrast material: OMNI 350; Contrast volume: 100 ml; Contrast route: INTRAVENOUS (IV); COMPARISON: CT head thrombolytic [id number] 06/28/2024 11:10 PM RADIATION DOSE METRICS: Total DLP (mGy-cm): 510.87 FINDINGS: Right common carotid artery: No stenosis. No dissection or occlusion. Right internal carotid artery: No stenosis of the extracranial segment. No dissection or occlusion. Right external carotid artery: No occlusion or high-grade stenosis identififed. Left common carotid artery: No stenosis. No dissection or occlusion. Left internal carotid artery: No stenosis of the extracranial segment. No dissection or occlusion. Left external carotid artery: No occlusion or high-grade stenosis identififed. Right vertebral artery: No stenosis. No dissection or occlusion. Left vertebral artery: No stenosis. No dissection or occlusion. Shows arch takeoff. Thyroid: Few minute thyroid nodularities are subcentimeter in size. Soft tissues: No significant soft tissue swelling or other acute finding noted. Bones/joints: No acute fracture. Moderate diffuse cervical degenerative change. A few old rib deformities. A couple of levels of minimal chronic listhesis are probably related to facet arthropathy. Old right proximal humeral deformity. CT/CT angio headneck* [id number] IMPRESSION: No large vessel high-grade stenosis or occlusion. IMPRESSION: No high-grade stenosis or occlusion. REFERENCES: NASCET CRITERIA. The degree of stenosis in the cervical segment of the internal carotid artery is based on NASCET criteria. Normal is no stenosis. Mild is less than 50% stenosis. Moderate is 50-69% stenosis. Severe is 70% to 99% stenosis. Total occlusion is no detectable patent lumen.
--- NOTE | 2024-06-28 23:12 | ECG_ITS ---
[facility] Date: 2024-06-28 Pat Name: Cory Miranda Department: Room: Gender: Male Basket Person: : 1950 Requested By: Angelo Moy Order Number: [id number] Reading MD: MADELEINE TINSLEY Measurements Intervals [place] Rate: 59 P: 81 WI: 242 QRS: 73 QRSD: 87 T: 75 QT: 407 QTc: 403 Interpretive Statements SINUS BRADYCARDIA WITH FIRST DEGREE AV BLOCK Compared to ECG 04/08/2022 17:32:42 Sinus rhythm no longer present Electronically Signed On 06-30-2024 17:34:43 SALES CONTRACT ADMINISTRATOR by MADELEINE TINSLEY [email or web address]
--- NOTE | 2024-06-28 23:12 | XRR_ITS ---
PROCEDURE INFORMATION: Exam: XR Chest Exam date and time: 06/28/2024 11:19 PM Age: 74 years old Clinical indication: Wheezing and other: Weakness, poss CVA TECHNIQUE: Imaging protocol: Radiologic exam of the chest. Views: 1 view. COMPARISON: CR XR chest 1V portable [id number] 04/08/2022 8:26 PM FINDINGS: Lungs: Mild COPD. No consolidation. Pleural spaces: Unremarkable. No pleural effusion. No pneumothorax. Heart/Mediastinum: Unremarkable. No cardiomegaly. Bones/joints: Chronic right humeral neck deformity. XR/XR chest 1V portable [id number] IMPRESSION: No acute findings.
[2024-06-28 23:18] LABS: Basophils % 0.2 %; Eosinophils # 0.2 10^3/uL (0.0-0.8); Eosinophils % 1.8 %; Hematocrit 42.2 % (37-53); Lymphocytes % 24.2 %; Mean Corpuscular HGB Conc 31.8 g/dL (30-55); Mean Corpuscular Volume 94.6 fl (82-101); Mean Platelet Volume 9.8 fL (7.4-10.4); Monocytes # 0.7 10^3/uL (0.2-0.9); Neutrophils # 5.46 10^3/uL (1.8-7.7); Neutrophils % 65.6 %; Nucleated Red Blood Cells % 0 %; Platelet Count 268 10^3/cmm (157-399); Red Blood Count 4.46 10^6/uL (3.85-5.65); Red Cell Distribution Width 14.2 % (12.1-15.1); White Blood Count 8.34 10^3/uL (3.29-11.43)
[2024-06-28 23:21] LABS: Glucose Point of Care 140 mg/dL (70-110)
[2024-06-28] MEDS: iohexol 350 mg/mL 500 mL Btl (per mL) IV (23:27)
--- NOTE | 2024-06-28 23:27 | ED_ITS ---
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 and decreased strength in his right lower extremity, patient says he is has had TIAs in the past but not any for several months patient denies being on any blood thinners, Review of Systems 2 General: Reports: 10 or more systems reviewed and unremarkable except in HPI and below PFSH ED 2 PFSH: Medical History (Updated 06/29/24 @ 01:06 by Sascha Pizarro MD) GERD (gastroesophageal reflux disease) Hypertension 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 Pain management contract signed Hypercholesterolemia Diabetes Surgical History History of ankle surgery H/O arthroscopic knee surgery Hx of cholecystectomy History of back surgery Family History Other Hypertension Stroke Denies family history of Diabetes CAD (coronary artery disease) Social History Smoking and tobacco/nicotine status: never used tobacco/nicotine Alcohol intake: never Substance/Drug Use: never Caregiver/support person: Yes Lives independently: Yes Household members: spouse Marital status: Physical Exam 2 Const: COMMON NORMALS: no acute distress, average body habitus, patient oriented x3, no limitations, healthy appearing, alert and well nourished HENMT: COMMON NORMALS: normocephalic, atraumatic, hearing grossly normal bilaterally, external ears normal, Normal external nose present and moist oral mucous membranes HEAD & SCALP: normocephalic and atraumatic NOSE: Normal external nose present EXTERNAL EAR: Yes external ears normal Eye: COMMON NORMALS: Equal, round and reactive pupils present, EOMs intact bilaterally, conjunctivae normal and no scleral icterus CONJUNCTIVA: Yes conjunctivae normal PUPIL: Yes Equal, round and reactive pupils present Neck/C-Spine: COMMON NORMALS: full ROM, no lymphadenopathy, supple, no meningeal signs, no JVD and Thyroid normal THYROID: Thyroid normal Chest: COMMONS NORMALS: normal inspection of the chest and normal palpation of entire chest wall Resp: COMMON NORMALS: normal respiratory effort, No retractions, No use of accessory muscles and clear to auscultation bilaterally AUSCULTATION: clear to auscultation bilaterally Cardio: COMMON NORMALS: no JVD, regular rate, regular rhythm, S1 normal heart sound present, S2 normal heart sound present, No gallops present (Cardio), No clicks present (Cardio), No murmurs present (Cardio) and No rub (Cardio) R ATE: regular rate RHYTHM: regular rhythm HEART SOUNDS: S1 normal heart sound present and S2 normal heart sound present GI: COMMON NORMALS: Normal to inspection, nondistended, normoactive bowel sounds present, Soft to palpation, non-tender, No hepatosplenomegaly present and no masses PALPATION: Yes Soft to palpation and Yes No hepatosplenomegaly present Neuro: COMMON NORMALS: patient oriented x3 SENSORIUM/ORIENTATION: Yes alert MENINGEAL SIGNS: Yes no meningeal signs OTHER: Decree sensation right side of face, decreased strength right upper extremity, right lower extremity, NIH of 2 Course 2 Vital Signs: Vital signs: Vital Signs Temperature 98.3 F 06/28/24 22:51 Pulse Rate 57 L 06/29/24 01:15 Respiratory Rate 15 06/29/24 01:15 Blood Pressure 127/83 06/29/24 01:15 Pulse Oximetry 92 06/29/24 01:15 Oxygen Delivery Me thod Room Air 06/29/24 00:30 MDM - Weakness Medical Decision Making Patient NIH of 2 secondary to decree sensation on the right side of his face and dropping of the leg against gravity on the right side. 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 I discussed this case with Dr. Gonzales neurologist at [facility] who said since this is a second episode this is not resolving she was advised to go ahead and give TNKase this will be given in the ER, I discussed this case with Dr. Pizarro who said we will place him in the ICU for further evaluation and observation. Lab Data 06/28/24 23:05 06/28/24 23:[address] 06/28/24 23:11 IMPRESSION: 1. No acute intracranial hemorrhage. 2. Extensive white matter disease is nonspecific. An MRI should be considered if indicated. 3. Moderate age-related changes. ASSESSMENT: ASPECTS ([place] Stroke Program Early CT Score) is 10. Head/Neck CTA 06/28/24 23:11 IMPRESSION: No large vessel high-grade stenosis or occlusion. IMPRESSION: No high-grade stenosis or occlusion. REFERENCES: NASCET CRITERIA. The degree of stenosis in the cervical segment of the internal carotid artery is based on NASCET criteria. Normal is no stenosis. Mild is less than 50% stenosis. Moderate is 50-69% stenosis. Severe is 70% to 99% stenosis. Total occlusion is no detectable patent lumen. Chest X-Ray 06/28/24 23:12 IMPRESSION: No acute findings. Laboratory Results WBC 8.34 10^3/uL (3.29-11.43) 06/28/24 23:05 RBC 4.46 10^6/uL (3.85-5.65) 06/28/24 23:05 Hgb 13.40 g/dL (11.27-16.99) 06/28/24 23:05 Hct 42.2 % (37-53) 06/28/24 23:05 MCV 94.6 fl (82-101) 06/28/24 23:05 MCH 30.0 pg (27-33) 06/28/24 23:05 MCHC 31.8 g/dL (30-55) 06/28/24 23:05 RDW 14.2 % (12.1-15.1) 06/28/24 23:05 Plt Count 268 10^3/cmm (157-399) 06/28/24 23:05 MPV 9.8 fL (7.4-10.4) 06/28/24 23:05 Neut % (Auto) 65.6 % 06/28/24 23:05 Lymph % (Auto) 24.2 % 06/28/24 23:05 Clinch % (Auto) 8.0 % 06/28/24 23:05 Eos % (Auto) 1.8 % 06/28/24 23:05 Baso % (Auto) 0.2 % 06/28/24 23:05 Neut # (Auto) 5.46 10^3/uL (1.8-7.7) 06/28/24 23:05 Lymph # (Auto) 2.0 10^3/uL (0.8-4.8) 06/28/24 23:05 Clinch # (Auto) 0.7 10^3/uL (0.2-0.9) 06/28/24 23:05 Eos # (Auto) 0.2 10^3/uL (0.0-0.8) 06/28/24 23:05 Baso # (Auto) 0.0 10^3/uL (0.0-0.1) 06/28/24 23:05 Nucleated RBC % (auto) 0 % 06/28/24 23:05 Nucleated RBCs # 0.0 /100WBC 06/28/24 23:05 PT 13.80 SECONDS (12.1-14.9) 06/28/24 23:05 INR 1.02 (0.8-1.2) 06/28/24 23:05 APTT 27.3 SECONDS (23.9-36.7) 06/28/24 23:05 Sodium 139 mmol/L (136-145) 06/28/24 23:05 Potassium 4.6 mmol/L (3.5-5.1) 06/28/24 23:05 Chloride 101 mmol/L (98-107) 06/28/24 23:05 Carbon Dioxide 30 mmol/L (22-29) H 06/28/24 23:05 Anion Gap 12.6 (5-19) 06/28/24 23:05 BUN 22 mg/dL (8-23) 06/28/24 23:05 Creatinine 1.2 mg/dL (0.7-1.2) 06/28/24 23:05 GFR Calculation Not Reportable 06/28/24 23:05 Glucose 128 mg/dL (65-115) H 06/28/24 23:05 POC Glucose 140 mg/dL (70-110) H 06/28/24 22:58 Calculated Osmolality 293 mOsm/kg (285-295) 06/28/24 23:05 Calcium 8.6 mg/dL (8.5-10.5) 06/28/24 23:05 Magnesium 2.1 mg/dL (1.7-2.3) 06/28/24 23:05 Total Bilirubin 0.2 mg/dL (0.15-1.2) 06/28/24 23:05 AST 16 U/L (0-40) 06/28/24 23:05 ALT 9 U/L (0-41) 06/28/24 23:05 Alkaline Phosphatase 87 U/L (40-130) 06/28/24 23:05 Troponin T Baseline 18 ng/L (0-15) H 06/28/24 23:05 C-Reactive Protein 3.0 mg/L (0.0-4.9) 06/28/24 23:05 Total Protein 6.7 g/dL (6.6-8.7) 06/28/24 23:05 Albumin 4.2 g/dL (3.5-5.2) 06/28/24 23:05 Globulin 2.5 g/dL (1.3-4.6) 06/28/24 23:05 TSH 1.22 uIU/mL (0.27-4.20) 06/28/24 23:05 Urine Color Yellow (Yellow) 06/28/24 23:30 Urine Appearance Clear (CLEAR) 06/28/24 23:30 Urine pH 7.0 (5-7) 06/28/24 23:30 Ur Specific [place] 1.037 (1.005-1.030) H 06/28/24 23:30 Urine Protein 2+ (Negative) A 06/28/24 23:30 Urine Glucose (UA) Negative (Normal) 06/28/24 23:30 Urine Ketones Negative (Negative) 06/28/24 23:30 Urine Blood 1+ (Negative) A 06/28/24 23:30 Urine Nitrate Negative (Negative) 06/28/24 23:30 Urine Bilirubin Negative (Negative) 06/28/24 23:30 Urine Urobilinogen 1.0 mg/dL (Negative) 06/28/24 23:30 Ur Leukocyte Esterase Negative (Negative) 06/28/24 23:30 Urine RBC 6-10 /hpf (0-2) 06/28/24 23:30 Urine WBC 0-5 /hpf (0-5) 06/28/24 23:30 Ur Squamous Epith Cells 0-5 /hpf (0-5) 06/28/24 23:30 Amorphous Sediment Not Reportable 06/28/24 23:30 Urine Bacteria None seen /hpf (NONE) 06/28/24 23:30 Hyaline Casts 0.81 /lpf 06/28/24 23:30 Urine Opiates Screen Negative ng/mL (Negative) 06/28/24 23:30 Ur Barbiturates Screen Negative ng/mL (Negative) 06/28/24 23:30 Ur Phencyclidine Scrn Negative ng/mL (Negative) 06/28/24 23:30 Ur Amphetamines Screen Negative ng/mL (Negative) 06/28/24 23:30 U Benzodiazepines Scrn Negative ng/mL (Negative) 06/28/24 23:30 Urine Cocaine Screen Negative ng/mL (Negative) 06/28/24 23:30 U Marijuana (THC) Screen Negative ng/mL (Negative) 06/28/24 23:30 Ethyl Alcohol < 10 mg/dL (0-10) 06/28/24 23:05 All radiology interpretation(s) finalized by discharge Discharge Plan Discharge Patient Disposition: Placed in Observation Admit Provider: Sascha Pizarro Clinical Impression: Stroke Qualifiers: CVA mechanism: unspecified Qualified Code(s): I63.9 - Cerebral infarction, unspecified Coding Level of Care Code ED [facility] Fwd Related Data Home Medications Medication Instructions Recorded Confirmed lisinopril 40 mg tablet 40 mg PO DAILY 03/01/20 05/17/24 omeprazole 20 mg capsule,delayed 20 mg PO DAILY 03/01/20 05/17/24 release pravastatin 40 mg tablet 20 mg PO DAILY 03/01/20 05/17/24 cholecalciferol (vitamin D3) 1,250 1,250 mcg PO DAILY 05/10/20 05/17/24 mcg (50,000 unit) capsule metformin 1,000 mg tablet 500 mg PO BID 04/11/21 05/17/24 pregabalin 100 mg capsule 100 mg PO BID 04/11/21 05/17/24 sennosides 8.6 mg tablet 8.6 mg PO BID 04/11/21 05/17/24 Previous Rx's Medication Instructions Recorded albuterol sulfate 90 mcg/actuation 1 inh inhalation Q6H PRN shortness 04/12/21 breath activated powder inhaler of breath or wheezing #1 ea diltiazem HCl 120 mg 120 mg PO DAILY #90 caps 04/12/21 capsule,extended release 24 hr triamcinolone acetonide 55 mcg 1 spray intranasal QAM #16.9 mL 04/12/21 nasal spray aerosol (Nasacort) celecoxib 200 mg capsule (Celebrex) 200 mg PO DAILY #14 caps 03/06/22 hydrocodone 5 mg-acetaminophen 325 1 tab PO Q6H PRN pain (scale score 11/12/22 mg tablet 7-10) #10 tabs Allergies Allergy/AdvReac Type Severity Reaction Status Date / Time No Known Allergies Allergy Verified 06/28/24 22:59 NIH stroke score NIHSS Level Of Consciousness - 1a: 0 Level Of Consciousness Questions - 1b: Both Correct Level Of Consciousness Commands - 1c: Both Correct Best Gaze - 2: Normal Visual White - 3: No Visual Loss Facial Palsy - 4: Normal Motor Arm Right - 5: No Drift Motor Arm Left - 5: No Drift Motor Leg Right - 6: Drift Motor Leg Left - 6: No Drift Limb Ataxia - 7: Absent Sensory - 8: Mild To Moderate Loss Best Language - 9: No Aphasia Dysarthia - 10: Normal Extinction And Inattention - 11: 0 Score Total Score: 2 Documented by User: Sascha Pizarro MD 06/28/24 23:50 HPI - Weakness 2 General: Chief complaint: Weakness 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: 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 Time Seen by Provider: 06/28/24 23:36 PFS ED 2 PFSH: Medical History (Updated 06/29/24 @ 01:06 by Sascha Pizarro MD) GERD (gastroesophageal reflux disease) Hypertension half-way (current) use of opiate analgesic Pain management contract signed Hypercholesterolemia Diabetes Surgical History History of ankle surgery H/O arthroscopic knee surgery Hx of cholecystectomy History of back surgery Family History Other Hypertension Stroke Denies family history of Diabetes CAD (coronary artery disease) Social History Smoking and tobacco/nicotine status: never used tobacco/nicotine Alcohol intake: never Substance/Drug Use: never Caregiver/support person: Yes Lives independently: Yes Household members: spouse Marital status: Course 2 Vital Signs: Vital signs: Vital Signs Temperature 98.3 F 06/28/24 22:51 Pulse Rate 57 L 06/29/24 01:15 Respiratory Rate 15 06/29/24 01:15 Blood Pressure 127/83 06/29/24 01:15 Pulse Oximetry 92 06/29/24 01:15 Oxygen Delivery Me thod Room Air 06/29/24 00:30 MDM - Weakness Lab Data 06/28/24 23:05 06/28/24 23:[address] 06/28/24 23:11 IMPRESSION: 1. No acute intracranial hemorrhage. 2. Extensive white matter disease is nonspecific. An MRI should be considered if indicated. 3. Moderate age-related changes. ASSESSMENT: ASPECTS ([place] Stroke Program Early CT Score) is 10. Head/Neck CTA 06/28/24 23:11 IMPRESSION: No large vessel high-grade stenosis or occlusion. IMPRESSION: No high-grade stenosis or occlusion. REFERENCES: NASCET CRITERIA. The degree of stenosis in the cervical segment of the internal carotid artery is based on NASCET criteria. Normal is no stenosis. Mild is less than 50% stenosis. Moderate is 50-69% stenosis. Severe is 70% to 99% stenosis. Total occlusion is no detectable patent lumen. Chest X-Ray 06/28/24 23:12 IMPRESSION: No acute findings. Laboratory Results WBC 8.34 10^3/uL (3.29-11.43) 06/28/24 23:05 RBC 4.46 10^6/uL (3.85-5.65) 06/28/24 23:05 Hgb 13.40 g/dL (11.27-16.99) 06/28/24 23:05 Hct 42.2 % (37-53) 06/28/24 23:05 MCV 94.6 fl (82-101) 06/28/24 23:05 MCH 30.0 pg (27-33) 06/28/24 23:05 MCHC 31.8 g/dL (30-55) 06/28/24 23:05 RDW 14.2 % (12.1-15.1) 06/28/24 23:05 Plt Count 268 10^3/cmm (157-399) 06/28/24 23:05 MPV 9.8 fL (7.4-10.4) 06/28/24 23:05 Neut % (Auto) 65.6 % 06/28/24 23:05 Lymph % (Auto) 24.2 % 06/28/24 23:05 Clinch % (Auto) 8.0 % 06/28/24 23:05 Eos % (Auto) 1.8 % 06/28/24 23:05 Baso % (Auto) 0.2 % 06/28/24 23:05 Neut # (Auto) 5.46 10^3/uL (1.8-7.7) 06/28/24 23:05 Lymph # (Auto) 2.0 10^3/uL (0.8-4.8) 06/28/24 23:05 Clinch # (Auto) 0.7 10^3/uL (0.2-0.9) 06/28/24 23:05 Eos # (Auto) 0.2 10^3/uL (0.0-0.8) 06/28/24 23:05 Baso # (Auto) 0.0 10^3/uL (0.0-0.1) 06/28/24 23:05 Nucleated RBC % (auto) 0 % 06/28/24 23:05 Nucleated RBCs # 0.0 /100WBC 06/28/24 23:05 PT 13.80 SECONDS (12.1-14.9) 06/28/24 23:05 INR 1.02 (0.8-1.2) 06/28/24 23:05 APTT 27.3 SECONDS (23.9-36.7) 06/28/24 23:05 Sodium 139 mmol/L (136-145) 06/28/24 23:05 Potassium 4.6 mmol/L (3.5-5.1) 06/28/24 23:05 Chloride 101 mmol/L (98-107) 06/28/24 23:05 Carbon Dioxide 30 mmol/L (22-29) H 06/28/24 23:05 Anion Gap 12.6 (5-19) 06/28/24 23:05 BUN 22 mg/dL (8-23) 06/28/24 23:05 Creatinine 1.2 mg/dL (0.7-1.2) 06/28/24 23:05 GFR Calculation Not Reportable 06/28/24 23:05 Glucose 128 mg/dL (65-115) H 06/28/24 23:05 POC Glucose 140 mg/dL (70-110) H 06/28/24 22:58 Calculated Osmolality 293 mOsm/kg (285-295) 06/28/24 23:05 Calcium 8.6 mg/dL (8.5-10.5) 06/28/24 23:05 Magnesium 2.1 mg/dL (1.7-2.3) 06/28/24 23:05 Total Bilirubin 0.2 mg/dL (0.15-1.2) 06/28/24 23:05 AST 16 U/L (0-40) 06/28/24 23:05 ALT 9 U/L (0-41) 06/28/24 23:05 Alkaline Phosphatase 87 U/L (40-130) 06/28/24 23:05 Troponin T Baseline 18 ng/L (0-15) H 06/28/24 23:05 C-Reactive Protein 3.0 mg/L (0.0-4.9) 06/28/24 23:05 Total Protein 6.7 g/dL (6.6-8.7) 06/28/24 23:05 Albumin 4.2 g/dL (3.5-5.2) 06/28/24 23:05 Globulin 2.5 g/dL (1.3-4.6) 06/28/24 23:05 TSH 1.22 uIU/mL (0.27-4.20) 06/28/24 23:05 Urine Color Yellow (Yellow) 06/28/24 23:30 Urine Appearance Clear (CLEAR) 06/28/24 23:30 Urine pH 7.0 (5-7) 06/28/24 23:30 Ur Specific [place] 1.037 (1.005-1.030) H 06/28/24 23:30 Urine Protein 2+ (Negative) A 06/28/24 23:30 Urine Glucose (UA) Negative (Normal) 06/28/24 23:30 Urine Ketones Negative (Negative) 06/28/24 23:30 Urine Blood 1+ (Negative) A 06/28/24 23:30 Urine Nitrate Negative (Negative) 06/28/24 23:30 Urine Bilirubin Negative (Negative) 06/28/24 23:30 Urine Urobilinogen 1.0 mg/dL (Negative) 06/28/24 23:30 Ur Leukocyte Esterase Negative (Negative) 06/28/24 23:30 Urine RBC 6-10 /hpf (0-2) 06/28/24 23:30 Urine WBC 0-5 /hpf (0-5) 06/28/24 23:30 Ur Squamous Epith Cells 0-5 /hpf (0-5) 06/28/24 23:30 Amorphous Sediment Not Reportable 06/28/24 23:30 Urine Bacteria None seen /hpf (NONE) 06/28/24 23:30 Hyaline Casts 0.81 /lpf 06/28/24 23:30 Urine Opiates Screen Negative ng/mL (Negative) 06/28/24 23:30 Ur Barbiturates Screen Negative ng/mL (Negative) 06/28/24 23:30 Ur Phencyclidine Scrn Negative ng/mL (Negative) 06/28/24 23:30 Ur Amphetamines Screen Negative ng/mL (Negative) 06/28/24 23:30 U Benzodiazepines Scrn Negative ng/mL (Negative) 06/28/24 23:30 Urine Cocaine Screen Negative ng/mL (Negative) 06/28/24 23:30 U Marijuana (THC) Screen Negative ng/mL (Negative) 06/28/24 23:30 Ethyl Alcohol < 10 mg/dL (0-10) 06/28/24 23:05 Discharge Plan Discharge Patient Disposition: Placed in Observation Admit Provider: Sascha Pizarro Clinical Impression: Stroke Qualifiers: CVA mechanism: unspecified Qualified Code(s): I63.9 - Cerebral infarction, unspecified Coding Level of Care Code ED [facility] Fwd Related Data Home Medications Medication Instructions Recorded Confirmed lisinopril 40 mg tablet 40 mg PO DAILY 03/01/20 05/17/24 omeprazole 20 mg capsule,delayed 20 mg PO DAILY 03/01/20 05/17/24 release pravastatin 40 mg tablet 20 mg PO DAILY 03/01/20 05/17/24 cholecalciferol (vitamin D3) 1,250 1,250 mcg PO DAILY 05/10/20 05/17/24 mcg (50,000 unit) capsule metformin 1,000 mg tablet 500 mg PO BID 04/11/21 05/17/24 pregabalin 100 mg capsule 100 mg PO BID 04/11/21 05/17/24 sennosides 8.6 mg tablet 8.6 mg PO BID 04/11/21 05/17/24 Previous Rx's Medication Instructions Recorded albuterol sulfate 90 mcg/actuation 1 inh inhalation Q6H PRN shortness 04/12/21 breath activated powder inhaler of breath or wheezing #1 ea diltiazem HCl 120 mg 120 mg PO DAILY #90 caps 04/12/21 capsule,extended release 24 hr triamcinolone acetonide 55 mcg 1 spray intranasal QAM #16.9 mL 04/12/21 nasal spray aerosol (Nasacort) celecoxib 200 mg capsule (Celebrex) 200 mg PO DAILY #14 caps 03/06/22 hydrocodone 5 mg-acetaminophen 325 1 tab PO Q6H PRN pain (scale score 11/12/22 mg tablet 7-10) #10 tabs Allergies Allergy/AdvReac Type Severity Reaction Status Date / Time No Known Allergies Allergy Verified 06/28/24 22:59 NIH stroke score Score Total Score: 2
[2024-06-28 23:29] LABS: INR 1.02 (0.8-1.2)
[2024-06-28 23:30] LABS: Partial Thromboplastin Time 27.3 SECONDS (23.9-36.7)
[2024-06-28 23:37] VITALS: BP 154/78; PULSE 59; RESP 22; O2SAT 96
[2024-06-28 23:38] LABS: Troponin(5th) Baseline 18 ng/L (0-15)
[2024-06-28 23:40] LABS: Bilirubin Urine Negative (Negative); Blood Urine 1+ (Negative); Glucose Urine UA Negative (Normal); Ketones Urine Negative (Negative); Leukocyte Esterase Urine Negative (Negative); Nitrate Urine Negative (Negative); Protein Urine 2+ (Negative); Urine Appearance Clear (CLEAR); Urine Color Yellow (Yellow)
[2024-06-28 23:42] LABS: Add Urine Microscopic? YES; Bacteria Urine None Seen /hpf; Hyaline Casts Urine 0.81 /lpf; Squamous Epithelial Cell Urine 0-5 /hpf (0-5); WBC Urine 0-5 /hpf (0-5)
[2024-06-28 23:44] LABS: Specific Gravity, Urine 1.037 (1.005-1.030)
[2024-06-28 23:45] LABS: Alanine Aminotransferase 9 U/L (0-41); Albumin Level 4.2 g/dL (3.5-5.2); Alcohol Level < 10 mg/dL (0-10); Alkaline Phosphatase 87 U/L (40-130); Anion Gap 12.6 (5-19); Aspartate Amino Transferase 16 U/L (0-40); Blood Urea Nitrogen 22 mg/dL (8-23); Calcium 8.6 mg/dL (8.5-10.5); Carbon Dioxide 30 mmol/L (22-29); Chloride 101 mmol/L (98-107); Creatinine Clr Calc Pharmacy 63.9654; Globulin 2.5 g/dL (1.3-4.6); Glucose 128 mg/dL (65-115); Magnesium 2.1 mg/dL (1.7-2.3); Osmolality Calculated 293 mOsm/kg (285-295); Potassium 4.6 mmol/L (3.5-5.1); Sodium 139 mmol/L (136-145); Thyroid Stimulating Hormone 1.22 uIU/mL (0.27-4.20); Total Bilirubin 0.2 mg/dL (0.15-1.2); Total Protein 6.7 g/dL (6.6-8.7)
[2024-06-28 23:48] LABS: Amphetamines Screen Urine Negative (Negative); Barbiturates Screen Urine Negative (Negative); Benzodiazepines Screen Urine Negative (Negative); Cocaine Screen Urine Negative (Negative); Opiate Screen Urine Negative (Negative); PCP Screen Urine Negative (Negative); THC Screen Urine Negative (Negative)
--- NOTE | 2024-06-28 23:50 | P.HP_ITS ---
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 Patient reports earlier today, he developed some light transient weakness in his right upper extremity that lasted about 45 minutes and self resolved. He reports symptoms returned tonight with increased severity. Patient reports symptoms started about an hour before arriving to the emergency department. He describes his symptoms as right upper extremity weakness, numbness, and decreased sensation. Reports weakness is in his right lower extremity as well. Denies any dysphagia, vision changes, or left-sided symptoms. He reports a history of multiple transient ischemic attacks but no strokes. He cannot recall his symptoms during his prior TIAs. In the emergency department, head CT was negative for acute brain bleed or large vessel occlusion. NIH 2. [facility] neurology was consulted and recommended TNKase. Review of Systems 2 Narrative: A complete review of systems was obtained and is negative except as stated in HPI. Medications/Allergies Home Medications Medication Instructions Recorded Confirmed Last Taken Type lisinopril 40 mg tablet 40 mg PO DAILY 03/01/20 05/17/24 04/10/21 History omeprazole 20 mg capsule,delayed 20 mg PO DAILY 03/01/20 05/17/24 04/10/21 History release pravastatin 40 mg tablet 20 mg PO DAILY 03/01/20 05/17/24 04/10/21 History cholecalciferol (vitamin D3) 1,250 1,250 mcg PO DAILY 05/10/20 05/17/24 04/11/21 History mcg (50,000 unit) capsule metformin 1,000 mg tablet 500 mg PO BID 04/11/21 05/17/24 04/11/21 History pregabalin 100 mg capsule 100 mg PO BID 04/11/21 05/17/24 04/11/21 History sennosides 8.6 mg tablet 8.6 mg PO BID 04/11/21 05/17/24 04/11/21 History albuterol sulfate 90 mcg/actuation 1 inh inhalation Q6H PRN shortness 04/12/21 05/17/24 Unknown Rx breath activated powder inhaler of breath or wheezing #1 ea diltiazem HCl 120 mg 120 mg PO DAILY #90 caps 04/12/21 05/17/24 Unknown Rx capsule,extended release 24 hr triamcinolone acetonide 55 mcg 1 spray intranasal QAM #16.9 mL 04/12/21 05/17/24 Unknown Rx nasal spray aerosol (Nasacort) celecoxib 200 mg capsule (Celebrex) 200 mg PO DAILY #14 caps 03/06/22 05/17/24 Unknown Rx hydrocodone 5 mg-acetaminophen 325 1 tab PO Q6H PRN pain (scale score 11/12/22 05/17/24 Unknown Rx mg tablet 7-10) #10 tabs Allergies Allergy/AdvReac Type Severity Reaction Status Date / Time No Known Allergies Allergy Verified 06/28/24 22:59 PFSH Acute 2 PFSH: Medical History (Updated 06/29/24 @ 01:06 by Sascha Pizarro MD) 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 (gastroesophageal reflux disease) 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 Hypercholesterolemia Diabetes Surgical History History of ankle surgery H/O arthroscopic knee surgery Hx of cholecystectomy History of back surgery Family History Other Hypertension Stroke Denies family history of Diabetes CAD (coronary artery disease) Social History Smoking and tobacco/nicotine status: never used tobacco/nicotine Alcohol intake: never Substance/Drug Use: never Caregiver/support person: Yes Lives independently: Yes Household members: spouse Marital status: Vitals/I&O/Wt Last Vital Signs Temp 98.3 F 06/28/24 22:51 Pulse 59 L 06/28/24 23:37 Resp 22 H 06/28/24 23:37 BP 154/78 06/28/24 23:37 Pulse Ox 96 06/28/24 23:37 O2 Del Method Room Air 06/28/24 23:37 Weight last 48 hrs Weight 96.162 kg Physical Exam 2 Narrative: General: Patient is awake and alert. Conversational. Head: Normocephalic. Atraumatic. EOM intact. Neck: No JVD. Cardiovascular: RRR. No gallops. No murmurs. Lungs: Clear to auscultation, no use of accessory muscles, no crackles or wheezes. Skin: No jaundice. No rashes. Abdomen: Normal bowel sounds, abdomen soft and nontender. Genito Urinary: Genital exam not performed since complaints not related. Rectal: Rectal exam not performed since no symptoms indicated blood loss. Extremities: No cyanosis or clubbing. Musculoskeletal: No swollen or erythematous joints. Neurological: Strength 4 out of 5 in right sided extremities. There is decrease sensation in the right upper extremity. No facial droop. Cranial nerves II through X are grossly intact. Data 06/28/24 23:05 06/28/24 23:05 A&P Assessment and plan (1) Stroke-like symptom: Stroke like symptoms of lateralizing neurological deficits to right sided extremities [facility] neurology consulted by ED provider, recommending TNKase TNKase given in ED Follow TNKase protocol Admit to intensive care unit Head CT ordered for a.m. Head MRI ordered Echo Continuous telemetry monitoring No anticoagulant/antiplatelet for 24 hours Serial neurologic checks PT/OT/ST (2) Hypercholesterolemia: High intensity statin Lipid panel (3) Hypertension: Will plan to continue home medications after home list is updated (4) GERD (gastroesophageal reflux disease): Continue PPI (5) Type 2 diabetes mellitus: Hold home regiment Sliding-scale correction Plan DVT prophylaxis: SCD Attestations 2 Medical Necessity Statement*: Patient presents with strokelike symptoms with presentation highly suspicious for TIA/stroke for which neurology recommends TNKase for which patient will be admitted to the intensive care unit for further stroke workup, telemetry, and supportive care. Coding Level of Care Code Acute Code for [facility] Diagnoses Stroke-like symptom R29.90 Hypercholesterolemia E78.00 Hypertension I10 GERD (gastroesophageal reflux disease) K21.9 Type 2 diabetes mellitus E11.9
[2024-06-29] VITALS (29 sets, daily range): BP systolic 124–170; BP diastolic 64–95; PULSE 50–78; RESP 5–27; TEMP 36.3–36.9; O2SAT 92–96
--- NOTE | 2024-06-29 00:02 | MR_ITS ---
WS: [id number] MRI BRAIN WITHOUT CONTRAST HISTORY: Right-sided weakness, suspected stroke COMPARISON: CT head 06/28/2024 TECHNIQUE: Diffusion imaging, multiplanar T1, T2 and FLAIR imaging obtained. Diffusion imaging is normal. No acute infarct. Mild atrophy and volume loss. Confluent and patchy moderate scattered T2 and FLAIR signal hyperintens ities throughout the white matter. Focus of hemosiderin in the anterior RIGHT frontal lobe cortex. Th is may be from a prior hemorrhage or vascular malformation. On the FLAIR sequence there is a curvilinear area of increased signal over the RIGHT cerebrum. This i s a very thin line of increased signal for which a small amount of subdural blood is not excluded. Th is potentially could represent an artifact due to the motion and fast scan protocol utilized. No inferior displacement of cerebellar tonsils. The sella turcica and pituitary gland are unremarkabl e. Dural venous sinuses and [place] demonstrate no abnormality on this unenhanced studies. Paranasal sinuses: Clear. Mastoid air cells: Normal. Calvarium and scalp: Intact. MR/MR head wo con* [id number] IMPRESSION: 1. No acute infarct or diffusion abnormality. 2. Moderate small vessel ischemic changes. 3. Indeterminate for small amount of RIGHT subdural blood. This may be of ct fact related to motion and the fast scan protocol utilized. To better evaluate consider noncontrast follow-up CT head at this time. 4. Focus of hemosiderin in the anterior superior RIGHT frontal lobe cortex. Th is may be from a prior tiny cortical hemorrhage or vascular malformation.
[2024-06-29] MEDS: tenecteplase 50mg Kit (STROKE) 24 MG IVP (00:21)
[2024-06-29 00:56] LABS: Troponin 5 2HR 17.33 ng/L (0-15)
[2024-06-29 01:17] LABS: Troponin 5 2HR Delta -0.67 ABS# (0-10)
[2024-06-29 02:03] LABS: Chol HDL Ratio 2.41 mg/dL (1.0-5.00); Cholesterol 77 mg/dL (0-200); HDL Cholesterol 32 mg/dL (60-100); LDL Cholesterol Calculated 20 mg/dL (50-129); LDL HDL Ratio 0.63 RATIO (0.00-3.22); Triglycerides 127 mg/dL (0-150)
[2024-06-29 02:41] LABS: Estmated Average Glucose 128; Hemoglobin A1C 6.1 % (4.0-6.0)
[2024-06-29] MEDS: hyDRALAzine 20 mg/mL INJ 1 mL 10 MG IVP (03:04)
--- NOTE | 2024-06-29 03:23 | ECG_ITS ---
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
[2024-06-29 07:56] LABS: Glucose Point of Care 89 mg/dL (70-110)
--- NOTE | 2024-06-29 08:07 | P.PN_ITS ---
Documented by User: Jose Manuel Peres 06/29/24 10:38 Subjective 2 Subjective: Patient is a 74 y.o. male admitted for stroke-like symptoms. This morning he feels that his right sided strength has gotten somewhat better since last night. He feels he is still having some slurring of his speech. Denies new concerns or overnight events. Medications: Reviewed: Yes Vitals/I&O/Wt Last Vital Signs Temp 97.4 F L 06/29/24 05:39 Pulse 52 L 06/29/24 06:00 Resp 22 H 06/29/24 06:00 BP 135/74 06/29/24 04:00 Pulse Ox 94 06/29/24 06:00 O2 Del Method Room Air 06/29/24 01:40 06/28/24 06/29/24 06/29/24 22:59 06:59 14:59 Intake Total 0 / 0 Output Total 650 / 650 Balance -650 / -650 Weight last 48 hrs Weight 187 lb 6.287 oz Weight 187 lb 6.287 oz Weight 191 lb Weight 212 lb Physical Exam 2 Narrative: General: Awake and alert. Conversational. Head: Normocephalic. Atraumatic. Cardiovascular: RRR. No gallops. No murmurs. Lungs: Clear to auscultation bilaterally. Abdomen: Soft, nontender. Normal bowel sounds. Neurological: Strength 3-4/5 in right sided extremities. No obvious CN deficits. Urinary Catheter Management: Ha: Cath Placed During This Visit: yes Reason for Continuing Indwelling Catheter: Accurate Measurement of Urinary Output in Critically Ill Patients Urinary Catheter Date of Insertion: 06/29/24 Urinary Catheter Time of Insertion: 23:50 Data 06/28/24 23:05 06/28/24 23:05 A&P Assessment and plan (1) Stroke: Qualifiers: CVA mechanism: unspecified Qualified Code(s): I63.9 - Cerebral infarction, unspecified (2) Hypercholesterolemia: Triglycerides, cholesterol, LDL/HDL ratio, and cholesterol/HDL ratio all WNL today LDL: 20, HDL: 32 Continue high intensity statin (3) Hypertension: BPs have been well controlled Continue lisinopril and diltiazem (4) GERD (gastroesophageal reflux disease): Continue PPI (5) Type 2 diabetes mellitus: Hold home regimen Continue sliding-scale insulin Plan DVT prophylaxis: SCD Coding Level of Care Code 07781 Diagnoses Stroke I63.9 CVA mechanism: unspecified Hypercholesterolemia E78.00 Hypertension I10 GERD (gastroesophageal reflux disease) K21.9 Type 2 diabetes mellitus E11.9 Time Spent (min) 24 Documented by User: Sanket Day MD 06/29/24 11:03 Physical Exam 2 Urinary Catheter Management: Ha: Cath Placed During This Visit: yes Data 06/28/24 23:05 06/28/24 23:05 A&P Assessment and plan (1) Stroke: CVA symptoms of lateralizing neurological deficits to right sided extremities TNKase given in ED last night around midnight Follow TNKase protocol Avoid anticoagulant/antiplatelet until >24hrs post TNKase Repeat Head CT today Head MRI ordered Echocardiogram ordered Continuous telemetry monitoring Serial neurologic checks Consultation by PT/OT/ST CTA was performed demonstrating no large vessel occlusion Change patient's home statin to high intensity statin to prevent stroke Aspirin, Plavix will be initiated 24 hours after TNKase is given, August 30 morning. Consider event monitor on discharge. Note patient did not have a significant amount of plaque on CTA Encouraged him to stop smoking Qualifiers: CVA mechanism: unspecified Qualified Code(s): I63.9 - Cerebral infarction, unspecified (2) Hypercholesterolemia: (3) Hypertension: BPs have been well controlled Continue lisinopril and diltiazem. He is doing okay following TNKase (4) GERD (gastroesophageal reflux disease): (5) Type 2 diabetes mellitus: Hold home regimen Continue sliding-scale insulin A1c not significantly elevated. Plan DVT prophylaxis: SCD Pharmacologic prophylaxis held as the patient received TNKase. Consider starting tomorrow. Attestations 2 Medical Necessity Statement*: Needs continued hospitalization for close monitoring following TNKase administration for CVA. Diagnoses Stroke I63.9 CVA mechanism: unspecified Hypercholesterolemia E78.00 Hypertension I10 GERD (gastroesophageal reflux disease) K21.9 Type 2 diabetes mellitus E11.9 Time Spent (min) 24
[2024-06-29] MEDS: pantoprazole DR 40 mg Tablet PO (08:44)
[2024-06-29] MEDS: dilTIAZem ER (24HR) 120 mg Capsule PO (08:44)
[2024-06-29] MEDS: lisinopril 20 mg Tablet 40 MG PO (08:44)
[2024-06-29] MEDS: sennosides 8.6 mg Tablet PO ×2 (08:44→17:31)
--- NOTE | 2024-06-29 09:01 | PC.PHAR ---
[facility] but knew [facility] medications and verified what he takes.
[2024-06-29 11:38] LABS: Glucose Point of Care 90 mg/dL (70-110)
--- NOTE | 2024-06-29 13:46 | CTR_ITS ---
PROCEDURE INFORMATION: Exam: CT Head Without Contrast Exam date and time: 06/29/2024 1:52 PM Age: 74 years old Clinical indication: Weakness, extremity; Bilateral; Additional info: Suspected stroke status post tnkase. No history of recent trauma or surgery is provided. TECHNIQUE: Imaging protocol: Computed tomography of the head without contrast. 303image(s) are provided. Radiation optimization: All CT scans at this facility use at least one of these dose optimization techniques: automated exposure control; mA and/or kV adjustment per patient size (includes targeted exams where dose is matched to clinical indication); or iterative reconstruction. Other technique: Axial images are available with sagittal and coronal reconstruction views. Automated dose exposure control is utilized. The DLP is 1083.78. COMPARISON: 1. MR head wo con* [id number] 06/29/2024 12:[address] angio headneck* [id number] 06/28/2024 11:[address] head thrombolytic [id number] 06/28/2024 11:10 PM RADIATION DOSE METRICS: Total DLP (mGy-cm): 1083.78 FINDINGS: Brain: There is some prominence of the subdural vasculature albeit similar overall with the adjacent areas of volume loss. There are moderate cerebral atrophic changes overall.Partially empty sella variant is demonstrated.There are chronic periventricular white matter changes present.There are central lacunar changes demonstrated. There are areas of encephalomalacia for example similar overall of the right frontoparietal margin similar overall. No interval mass effect or significant layering hemorrhage is currently appreciated. Child, white matter differentiation appears overall maintained. Cerebral ventricles: No interval hydrocephalus is appreciated. Paranasal sinuses: The included paranasal sinuses appear well-aerated overall. Mastoid air cells: The mastoid air cells appear well-aerated overall. There does appear to be some slight mucosal thickening of the inferior left mastoid air cells posteriorly similar overall. Orbital cavities: Symmetric appearance of the orbital soft tissues is demonstrated. Bones: No interval fracture or dislocation is appreciated. Soft tissues: No radiopaque foreign body or subcutaneous emphysema is appreciated. Vasculature: There is slight increased density of the vessels which could be seen with atherosclerotic change as well as slow flow. Other findings: There is some motion artifact present. CT/CT head wo con* [id number] IMPRESSION: No interval mass effect, hydrocephalus or significant layering hemorrhage is currently appreciated with similar overall multifocal periventricular, white matter related changes. The previously described suspected focus laterally right on MRI is overall less conspicuous on CT. If there is persistent clinical concern, consider dedicated MRI with and without contrast for further evaluation of this as well as the described right frontal focus.
[2024-06-29 17:23] LABS: Glucose Point of Care 122 mg/dL (70-110)
[2024-06-29] MEDS: pregabalin 50 mg Capsule PO (17:31)
[2024-06-29] MEDS: atorvastatin 40 mg Tablet 80 MG PO (21:25)
[2024-06-29 21:32] LABS: Glucose Point of Care 132 mg/dL (70-110)
[2024-06-30] VITALS (9 sets, daily range): BP systolic 120–148; BP diastolic 73–113; PULSE 50–80; RESP 22; O2SAT 93–96
[2024-06-30 05:38] LABS: Basophils % 0.2 %; Eosinophils # 0.1 10^3/uL (0.0-0.8); Eosinophils % 1.3 %; Lymphocytes # 1.9 10^3/uL (0.8-4.8); Lymphocytes % 22.1 %; Mean Corpuscular HGB Conc 32.6 g/dL (30-55); Mean Corpuscular Hemoglobin 30.5 pg (27-33); Mean Corpuscular Volume 93.5 fl (82-101); Mean Platelet Volume 10.2 fL (7.4-10.4); Monocytes # 0.7 10^3/uL (0.2-0.9); Monocytes % 8.4 %; Neutrophils # 5.79 10^3/uL (1.8-7.7); Neutrophils % 67.6 %; Nucleated Red Blood Cells % 0 %; Platelet Count 237 10^3/cmm (157-399); Red Blood Count 4.17 10^6/uL (3.85-5.65); Red Cell Distribution Width 14.3 % (12.1-15.1); White Blood Count 8.56 10^3/uL (3.29-11.43)
--- NOTE | 2024-06-30 06:00 | USCV_ITS ---
Cory Miranda Age: 74 Gender: M : 1950 Exam Date: 06/30/2024 00:53 Ordering Phys: Sascha Pizarro MD Technologist: MANOLO Exam Location: [facility] – [place] Indication: RIGHT hemiparesis CVA, slurred speech, DM2, hyperlipidemia, HTN. BP: 144 / 76 HR: 49 Rhythm: Sinus bradlycardia Technical Quality: Adequate MEASUREMENTS (Male / Female) Normal Values 2D ECHO LV Diastolic Diameter PLAX 4.0 cm 4.2 - 5.9 / 3.9 - 5.3 cm IVS Diastolic Thickness 1.4 cm 0.6 - 1.0 / 0.6 - 0.9 cm IVS Systolic Thickness 1.4 cm LVPW Diastolic Thickness 1.4 cm 0.6 - 1.0 / 0.6 - 0.9 cm LVPW Systolic Thickness 2.2 cm LVOT Diameter 2.4 cm LV Ejection Fraction 2D Teich 58.3 % LV Ejection Fraction MOD 4C 62.3 % LV Ejection Fraction MOD 2C 61.3 % LV Ejection Fraction 2C AL 62.4 % LA Diameter 3.1 cm Aorta at Sinotubular Diameter 3.3 cm IVC Diameter 1.7 cm M-MODE LA Ao Ratio MM 1.2 AV Cusp Separation MM 1.8 cm DOPPLER AV Peak Velocity 137.0 cm/s LVOT Peak Velocity 84.0 cm/s AV Area Cont Eq vti 2.8 cm squared AV Area Cont Eq pk 2.8 cm squared MV Peak Velocity 111.0 cm/s MV Area PHT 3.4 cm squared Mitral E to A Ratio 0.9 TR Peak Velocity 230.0 cm/s TR Peak Gradient 21.2 mmHg TV Peak E Velocity 53.0 cm/s Right Atrial Pressure 3.0 mmHg Pulmonary Artery Systolic Pressu 24.2 mmHg PV Peak Velocity 117.0 cm/s FINDINGS Left Ventricle Normal LV size and ejection fraction of 62%.no regional wall motion abnormalities. Right Ventricle Mildly increased right ventricular size. Normal right ventricular systolic function. Right Atrium The right atrium is normal in size. Left Atrium The left atrium is normal in size. No intracavitary masses Mitral Valve No gross abnormalities noted Aortic Valve Minimally thickened aortic valve.trace to mild aortic valve regurgitation. Tricuspid Valve trace tricuspid valve regurgitation. Pulmonic Valve No gross abnormalities noted Pericardium Normal pericardium without effusion. Aorta Normal ascending aorta dimension. IVC Normal inferior vena cava. CONCLUSIONS Normal LV size and ejection fraction of 62%.no regional wall motion abnormalities. Right ventricle is mildly dilated with a normal ejection fraction No obvious intracardiac masses. Minimally thickened aortic valve.trace to mild aortic valve regurgitation. Trace tricuspid valve regurgitation. Estimated pulmonary artery peak systolic pressure 24 mmHg Technically somewhat difficult study because of the suboptimal apical views No similar previous studies are available for comparison Dr Nasrin Goode MD [facility] (Electronically Signed) Final Date: 30 June 2024 10:00 S
--- NOTE | 2024-06-30 06:00 | USCV_ITS ---
Cory Miranda Age: 74 Gender: M : 1950 Exam Date: 06/30/2024 00:21 Ordering Phys: Sascha Pizarro MD Technologist: MANOLO Exam Location: [facility] [place] Indication: RIGHT hemiparesis, slurred speech CVA, DM2, hyperlipidemia, HTN Risk Factors: RIGHT hemiparesis, slurred speech CVA, DM2, hyperlipidemia, HTN Previous Vascular Surgery: none Right Brachial BP: 144 / 76 Left Brachial BP: / Right Left Velocity (cm/s) Spectral Plaque Velocity (cm/s) Spectral Plaque Syst/Diast Broadening Syst/Diast Broadening 79.10/ 9.00 None None Prox CCA 75.70 / 11.20 Min None 81.70/ 11.60 None None Mid CCA 61.20 / 11.10 Min None 60.80/ 14.10 None None Distal CCA 40.90 / 9.50 None None 40.00/ 10.20 Min Hetro Prox ICA 38.00 / 10.30 None Hetro 44.90/ 11.40 None Homo Mid ICA 41.90 / 15.30 None Homo 106.50/24.30 Min Homo Distal ICA 58.20 / 14.50 Mod Homo 89.30 Min Homo ECA 64.40 None Homo 1.80 ICA/CCA 1.40 Antegrade Vertebral Antegrade 33.10/ 11.40 cm/s 35.30/ 10.00 cm/s Tri Subclavian Tri 72.70 54.80 CONCLUSIONS Right ICA stenosis <50%. Moderate atheromatous plaque right carotid bulb/ICA. Left ICA stenosis <50%. Moderate atheromatous plaque left carotid bulb/ICA. Intimal thickening in the common carotid arteries and internal carotid arteries bilaterally. Normal antegrade Doppler flow noted in the right vertebral artery. Normal antegrade Doppler flow noted in the left vertebral artery. Bentley Sotelo MD (Electronically Signed) Final Date: 30 June 2024 10:14 S
[2024-06-30 06:05] LABS: Anion Gap 13.5 (5-19); Blood Urea Nitrogen 20 mg/dL (8-23); Calcium 8.5 mg/dL (8.5-10.5); Carbon Dioxide 26 mmol/L (22-29); Chloride 104 mmol/L (98-107); Creatinine Clr Calc Pharmacy 80.8086; Glucose 115 mg/dL (65-115); Osmolality Calculated 292 mOsm/kg (285-295); Potassium 4.5 mmol/L (3.5-5.1); Sodium 139 mmol/L (136-145)
[2024-06-30 07:36] LABS: Glucose Point of Care 119 mg/dL (70-110)
--- NOTE | 2024-06-30 08:02 | P.DS_ITS ---
Discharge Providers Date of Admission: 06/29/24 00:00 Date of Discharge: June 30, 2024 Attending Provider at Admission: Sascha Pizarro MD Attending Provider at Discharge: Sanket Day MD Primary Care Provider: Surekha Harman MD Diagnoses at Discharge Discharge Diagnosis (1) Stroke: Status: Acute Qualifiers: CVA mechanism: unspecified Qualified Code(s): I63.9 - Cerebral infarction, unspecified (2) Hypercholesterolemia: Status: Acute (3) Hypertension: Status: Acute (4) GERD (gastroesophageal reflux disease): Status: Acute (5) Type 2 diabetes mellitus: Status: Acute Reason for Visit Reason for Visit: Right side weakness cant neurourologist Hospital Course Hospital Course Patient is 74-year-old white male who presented to the hospital with right-sided weakness, hand greater than leg. He was diagnosed with a stroke, evaluated by neurology, and received TNKase. He has not had any prior history of stroke. He received statin. Aspirin was started 24 hours following his evaluation and repeat scans for TNKase protocol. No arrhythmia was noted in the hospital. CTA demonstrated no significant occlusions. MRI did not demonstrate any definitive infarct. There was initially a concern of possibly some subdural blood, but this was not seen on follow-up noncontrast CT. Patient himself had improved rapidly since administration of TNKase, and was able to ambulate without difficulty and had near full return of strength in his right upper extremity, and complete in his right lower. Therapy evaluated him and recommended outpatient physical therapy. He will be started on aspirin, statin at home and have follow-up with neurology in 2 weeks. Event monitor on discharge. Echocardiogram was done prior to discharge, demonstrating preserved EF. No major valvular abnormalities.. He was able to ask questions and agreed with the plan. Physical Exam Narrative: General Exam no distress Neck is supple Cardiovascular regular rate and rhythm Lungs clear Abdomen soft Extremities no sinus clubbing edema Neuro: Slight diminished strength right upper extremity hand Urinary Catheter Management: Ha: Cath Placed During This Visit: yes, but has since been removed by the nurse Reason for Continuing Indwelling Catheter: Decision to DC Catheter Urinary Catheter Date of Insertion: 06/29/24 Urinary Catheter Time of Insertion: 23:50 Date Urinary Catheter Removed: 06/30/24 Time Urinary Catheter Discontinued: 00:15 Discharge Data Studies Completed and Pending Completed Studies During Hospitalization Category Date Time Status CT head thrombolytic [id number] Stat Cat Scan 06/28/24 23:[address] head wo con* [id number] Routine Cat Scan 06/29/24 13:46 Completed CTA head neck [CT angio headneck* [id number]] Stat Cat Scan 06/28/24 23:11 Completed XR chest 1V portable [id number] Stat Exams 06/28/24 23:12 Completed MR head wo con* [id number] Stat MRI 06/29/24 00:02 Completed Pending at discharge Category Date Time Status CV carotid duplex BI* [id number] Routine Ultrasound 06/30/24 06:00 Taken CV. echo complete* [id number] Routine Ultrasound 06/30/24 06:00 Taken Radiology Impressions Head/Neck CTA 06/28/24 23:11 IMPRESSION: No large vessel high-grade stenosis or occlusion. IMPRESSION: No high-grade stenosis or occlusion. REFERENCES: NASCET CRITERIA. The degree of stenosis in the cervical segment of the internal carotid artery is based on NASCET criteria. Normal is no stenosis. Mild is less than 50% stenosis. Moderate is 50-69% stenosis. Severe is 70% to 99% stenosis. Total occlusion is no detectable patent lumen. Chest X-Ray 06/28/24 23:12 IMPRESSION: No acute findings. Head MRI 06/29/24 00:02 IMPRESSION: 1. No acute infarct or diffusion abnormality. 2. Moderate small vessel ischemic changes. 3. Indeterminate for small amount of RIGHT subdural blood. This may be of artifact related to motion and the fast scan protocol utilized. To better evaluate consider noncontrast follow-up CT head at this time. 4. Focus of hemosiderin in the anterior superior RIGHT frontal lobe cortex. This may be from a prior tiny cortical hemorrhage or vascular malformation. Head CT 06/29/24 13:46 IMPRESSION: No interval mass effect, hydrocephalus or significant layering hemorrhage is currently appreciated with similar overall multifocal periventricular, white matter related changes. The previously described suspected focus laterally right on MRI is overall less conspicuous on CT. If there is persistent clinical concern, consider dedicated MRI with and without contrast for further evaluation of this as well as the described right frontal focus. Laboratory Results WBC 8.56 10^3/uL (3.29-11.43) 06/30/24 04:46 RBC 4.17 10^6/uL (3.85-5.65) 06/30/24 04:46 Hgb 12.70 g/dL (11.27-16.99) 06/30/24 04:46 Hct 39.0 % (37-53) 06/30/24 04:46 MCV 93.5 fl (82-101) 06/30/24 04:46 MCH 30.5 pg (27-33) 06/30/24 04:46 MCHC 32.6 g/dL (30-55) 06/30/24 04:46 RDW 14.3 % (12.1-15.1) 06/30/24 04:46 Plt Count 237 10^3/cmm (157-399) 06/30/24 04:46 MPV 10.2 fL (7.4-10.4) 06/30/24 04:46 Neut % (Auto) 67.6 % 06/30/24 04:46 Lymph % (Auto) 22.1 % 06/30/24 04:46 Republic % (Auto) 8.4 % 06/30/24 04:46 Eos % (Auto) 1.3 % 06/30/24 04:46 Baso % (Auto) 0.2 % 06/30/24 04:46 Neut # (Auto) 5.79 10^3/uL (1.8-7.7) 06/30/24 04:46 Lymph # (Auto) 1.9 10^3/uL (0.8-4.8) 06/30/24 04:46 Republic # (Auto) 0.7 10^3/uL (0.2-0.9) 06/30/24 04:46 Eos # (Auto) 0.1 10^3/uL (0.0-0.8) 06/30/24 04:46 Baso # (Auto) 0.0 10^3/uL (0.0-0.1) 06/30/24 04:46 Nucleated RBC % (auto) 0 % 06/30/24 04:46 Nucleated RBCs # 0.0 /100WBC 06/30/24 04:46 PT 13.80 SECONDS (12.1-14.9) 06/28/24 23:05 INR 1.02 (0.8-1.2) 06/28/24 23:05 APTT 27.3 SECONDS (23.9-36.7) 06/28/24 23:05 Sodium 139 mmol/L (136-145) 06/30/24 04:46 Potassium 4.5 mmol/L (3.5-5.1) 06/30/24 04:46 Chloride 104 mmol/L (98-107) 06/30/24 04:46 Carbon Dioxide 26 mmol/L (22-29) 06/30/24 04:46 Anion Gap 13.5 (5-19) 06/30/24 04:46 BUN 20 mg/dL (8-23) 06/30/24 04:46 Creatinine 0.9 mg/dL (0.7-1.2) 06/30/24 04:46 GFR Calculation Not Reportable 06/30/24 04:46 Glucose 115 mg/dL (65-115) 06/30/24 04:46 POC Glucose 119 mg/dL (70-110) H 06/30/24 07:22 Estimat Average Glucose 128 06/28/24 23:05 Hemoglobin A1c 6.1 % (4.0-6.0) H 06/28/24 23:05 Calculated Osmolality 292 mOsm/kg (285-295) 06/30/24 04:46 Calcium 8.5 mg/dL (8.5-10.5) 06/30/24 04:46 Magnesium 2.1 mg/dL (1.7-2.3) 06/28/24 23:05 Total Bilirubin 0.2 mg/dL (0.15-1.2) 06/28/24 23:05 AST 16 U/L (0-40) 06/28/24 23:05 ALT 9 U/L (0-41) 06/28/24 23:05 Alkaline Phosphatase 87 U/L (40-130) 06/28/24 23:05 Troponin T Baseline 18 ng/L (0-15) H 06/28/24 23:05 Troponin T 120 Minute 17.33 ng/L (0-15) H 06/29/24 00:32 Delta Troponin T -0.67 ABS# (0-10) L 06/29/24 00:32 C-Reactive Protein 3.0 mg/L (0.0-4.9) 06/28/24 23:05 Total Protein 6.7 g/dL (6.6-8.7) 06/28/24 23:05 Albumin 4.2 g/dL (3.5-5.2) 06/28/24 23:05 Globulin 2.5 g/dL (1.3-4.6) 06/28/24 23:05 Triglycerides 127 mg/dL (0-150) 06/29/24 00:32 Cholesterol 77 mg/dL (0-200) 06/29/24 00:32 LDL Cholesterol, Calc 20 mg/dL (50-129) L 06/29/24 00:32 HDL Cholesterol 32 mg/dL (60-100) L 06/29/24 00:32 LDL/HDL Ratio 0.63 RATIO (0.00-3.22) 06/29/24 00:32 Cholesterol/HDL Ratio 2.41 mg/dL (1.0-5.00) 06/29/24 00:32 TSH 1.22 uIU/mL (0.27-4.20) 06/28/24 23:05 Urine Color Yellow (Yellow) 06/28/24 23:30 Urine Appearance Clear (CLEAR) 06/28/24 23:30 Urine pH 7.0 (5-7) 06/28/24 23:30 Ur Specific [place] 1.037 (1.005-1.030) H 06/28/24 23:30 Urine Protein 2+ (Negative) A 06/28/24 23:30 Urine Glucose (UA) Negative (Normal) 06/28/24 23:30 Urine Ketones Negative (Negative) 06/28/24 23: Urine Blood 1+ (Negative) A 06/28/24 23:30 Urine Nitrate Negative (Negative) 06/28/24 23:30 Urine Bilirubin Negative (Negative) 06/28/24 23:30 Urine Urobilinogen 1.0 mg/dL (Negative) 06/28/24 23:30 Ur Leukocyte Esterase Negative (Negative) 06/28/24 23:30 Urine RBC 6-10 /hpf (0-2) 06/28/24 23:30 Urine WBC 0-5 /hpf (0-5) 06/28/24 23:30 Ur Squamous Epith Cells 0-5 /hpf (0-5) 06/28/24 23:30 Amorphous Sediment Not Reportable 06/28/24 23:30 Urine Bacteria None seen /hpf (NONE) 06/28/24 23:30 Hyaline Casts 0.81 /lpf 06/28/24 23:30 Urine Opiates Screen Negative ng/mL (Negative) 06/28/24 23:30 Ur Barbiturates Screen Negative ng/mL (Negative) 06/28/24 23:30 Ur Phencyclidine Scrn Negative ng/mL (Negative) 06/28/24 23:30 Ur Amphetamines Screen Negative ng/mL (Negative) 06/28/24 23:30 U Benzodiazepines Scrn Negative ng/mL (Negative) 06/28/24 23:30 Urine Cocaine Screen Negative ng/mL (Negative) 06/28/24 23:30 U Marijuana (THC) Screen Negative ng/mL (Negative) 06/28/24 23:30 Ethyl Alcohol < 10 mg/dL (0-10) 06/28/24 23:05 Vitals Last Vital Signs Temp 97.4 F L 06/29/24 18:00 Pulse 59 L 06/30/24 06:14 Resp 22 H 06/30/24 06:14 BP 123/76 06/30/24 03:00 Pulse Ox 94 06/30/24 06:14 O2 Del Method Room Air 06/29/24 08:20 Discharge Plan Discharge Patient Disposition: Home Condition: Stable Prescriptions: New atorvastatin 40 mg Tablet 80 mg PO BEDTIME Qty: 60 0RF aspirin 325 mg Tablet,Delayed Release (Dr/Ec) 325 mg PO DAILY Qty: 30 0RF Continued lisinopril 40 mg tablet 40 mg PO QPM omeprazole 20 mg capsule,delayed release(DR/EC) 20 mg PO DAILY PRN (Reason: Acid Reflux) cholecalciferol (vitamin D3) 1,250 mcg (50,000 unit) capsule 1,250 mcg PO DAILY sennosides 8.6 mg Tablet 8.6 mg PO BID metformin 1,000 mg Tablet See Rx Instructions .ROUTE .COMPLEX Rx Instructions: Take 1 tablet by mouth in the morning and 1.5 tablets in the evening. pregabalin 100 mg Capsule 100 mg PO BID diltiazem HCl 120 mg capsule,extended release 24hr 120 mg PO DAILY Qty: 90 0RF albuterol sulfate 90 mcg/actuation aerosol powdr breath activated 1 inh inhalation Q6H PRN (Reason: shortness of breath or wheezing) Qty: 1 0RF Discontinued pravastatin 40 mg tablet 20 mg PO DAILY Discharge Orders: Discharge Order (Routine); Ordered 06/30/24 Ordered By: Sanket Day Other Ambulatory Orders: Physical Therapy Eval and Treat Outpatient (Order) Timeframe: 3 Days Facility: [facility] - Location: Physical Therapy [place] Ordered By: Sanket Day Speech Language Pathology Eval and Treat Outpatient (Order) Timeframe: 3 Days Facility: [facility] - Location: [place] [facility] Ordered By: Sanket Day MCT/Event Monitor 21 Days (Routine) Timeframe: 1 Day Facility: [facility] - Location: Radiology Ordered By: Sanket Day Referrals: Sandeep Win MD [Physician] - 2 weeks (We have notified your physician's clinic of the need for a follow-up appointment to be scheduled. If you have not heard from them within the next 2 business days, please call them directly. ) Surekha Harman MD [Primary Care Provider] - 07/09/24 10:00 am (This follow-up is via telephone. ) Discharge Diet: Cardiac Discharge Activity: Increase activity as tolerated Patient Instructions: Opioid Safety Activity Restrictions/Additional Instructions: Take all medicine as prescribed Follow-up with neurology 2 weeks, primary care provider 3 to 5 days Take aspirin, statin every day Return for any concerns Event monitor on discharge. You may resume your metformin tomorrow. Discharge Attestations Time Spent in Discharge Care*: greater than 30 min Quality Metrics Clinical Quality Measures [ Cerebrovascular Accident { Contraindication to Antithrombotic: None; antithrombotic prescribed; Contraindication to Anticoagulation: Other (not indicated); Contraindication to Statin: None; Statin prescribed;}] Coding Level of Care Code 00298 Total time (in minutes) for Discharge: 32 Diagnoses Stroke I63.9 CVA mechanism: unspecified Hypercholesterolemia E78.00 Hypertension I10 GERD (gastroesophageal reflux disease) K21.9 Type 2 diabetes mellitus E11.9
[2024-06-30] MEDS: aspirin 325 mg EC Tablet PO (09:03)
[2024-06-30] MEDS: lisinopril 20 mg Tablet 40 MG PO (09:04)
[2024-06-30] MEDS: pregabalin 50 mg Capsule PO (09:04)
[2024-06-30] MEDS: pantoprazole DR 40 mg Tablet PO (09:04)
[2024-06-30] MEDS: dilTIAZem ER (24HR) 120 mg Capsule PO (09:04)
--- NOTE | 2024-06-30 10:52 | PC.NURSE ---
All D/C instructions educated to patient, IV dc
--- NOTE | 2024-06-30 11:02 | PC.NURSE ---
off unit to cardiac appointment for heart monitor with son who will transport home afterwards
== END 2024-06-30 11:02 | disposition home or self-care (01) | DRG 62 ==
LOC: ER 06-29 00:13 → ICU 06-29 00:44
PROVIDERS: Admitting Provider Internal Medicine; Emergency Provider Emergency Medicine; PCP Family Medicine; Visit Provider Internal Medicine
DX: I63.9 Cerebral infarction, unspecified (principal); G81.93 Hemiplegia, unspecified affecting right nondominant side; R47.81 Slurred speech; R29.702 NIHSS score 2; E11.9 Type 2 diabetes mellitus without complications; E78.00 Pure hypercholesterolemia, unspecified; I10 Essential (primary) hypertension; K21.9 Gastro-esophageal reflux disease without esophagitis; Z79.84 Long term (current) use of oral hypoglycemic drugs; Z79.51 Long term (current) use of inhaled steroids; Z79.891 Long term (current) use of opiate analgesic; Z86.73 Personal history of transient ischemic attack (TIA), and cerebral infarction without residual deficits; Z90.49 Acquired absence of other specified parts of digestive tract; Z82.49 Family history of ischemic heart disease and other diseases of the circulatory system; Z82.3 Family history of stroke; Z83.3 Family history of diabetes mellitus
CPT/HCPCS: 36415; 36416; 51702; 70450; 70496; 70498; 70551; 71045; 80048; 80053; 80061; 80306; 80307; 81001; 82962; 83036; 83735; 84443; 84484; 85025; 85610; 85730; 86140; 92523; 92610; 93005; 93306; 93880; 96374; 96376; 97110; 97116; 97161; 97165; 99291; J0360; J3101

== ENCOUNTER → 2024-07-21 07:24 | Outpatient (BNVA) | payer OTHER, SELFPAY | PROVIDERS: PCP Family Medicine; Visit Provider Podiatrist Foot & Ankle Surgery | DX: L60.3 Nail dystrophy (principal); G62.9 Polyneuropathy, unspecified; E11.42 Type 2 diabetes mellitus with diabetic polyneuropathy; Z79.84 Long term (current) use of oral hypoglycemic drugs | CPT/HCPCS: 11721 ==

== ENCOUNTER → 2024-09-22 06:51 | Outpatient (BNVA) | payer OTHER, SELFPAY | PROVIDERS: PCP Family Medicine; Visit Provider Podiatrist Foot & Ankle Surgery | DX: E11.42 Type 2 diabetes mellitus with diabetic polyneuropathy (principal); L60.3 Nail dystrophy; G62.9 Polyneuropathy, unspecified; L85.3 Xerosis cutis; Z79.84 Long term (current) use of oral hypoglycemic drugs | CPT/HCPCS: 11721; 99213 ==

== ENCOUNTER → 2024-11-24 07:04 | Outpatient (BNVA) | payer OTHER, SELFPAY | PROVIDERS: PCP Family Medicine; Visit Provider Podiatrist Foot & Ankle Surgery | DX: E11.42 Type 2 diabetes mellitus with diabetic polyneuropathy (principal); L60.3 Nail dystrophy; G62.9 Polyneuropathy, unspecified; Z79.84 Long term (current) use of oral hypoglycemic drugs | CPT/HCPCS: 11056; 11721 ==

== ENCOUNTER → 2024-12-14 09:49 | Outpatient (BNVA) | payer OTHER, SELFPAY | PROVIDERS: PCP Family Medicine; Visit Provider Psychiatry & Neurology Neurology | DX: I63.9 Cerebral infarction, unspecified (principal); I62.00 Nontraumatic subdural hemorrhage, unspecified; G96.08 Other cranial cerebrospinal fluid leak; Z86.73 Personal history of transient ischemic attack (TIA), and cerebral infarction without residual deficits | CPT/HCPCS: 99202 ==

== ENCOUNTER 2024-12-20 06:56 | Outpatient (CLI) | payer OTHER, SELFPAY ==
--- NOTE | 2024-12-20 07:15 | MR_ITS ---
WS: [id number] MRI HEAD WITH CONTRAST TECHNIQUE: Sagittal T1, T2 axial, T2 axial FLAIR, axial susceptibility weighted imaging, axial diffusion weighted images, and coronal T2 images were obtained. Pre and post-T1 axial and post T1 coronal images. ADC and FSPGR images. CLINICAL INFORMATION: I63.9 - Cerebral infarction, unspecified COMPARISON: 2023 FINDINGS: No evidence of restricted diffusion to suggest acute ischemia. Moderate small vessel changes with mild to moderate parenchymal volume loss. Stable focus of hemosiderin in the RIGHT parasagittal frontal lobe. Enhancing thickened dura overlying the RIGHT cerebral convexity likely reactive. No underlying blood products today. Normal posterior fossa. Normal vascular flow voids at the skull base. No extra- axial fluid collections. Paranasal sinuses are well aerated. Mucosal thickening LEFT mastoid air cells. No other acute findings. MR/MR head wo/w con [id number] IMPRESSION: 1. No evidence of restricted diffusion to suggest acute ischemia. 2. Moderate small vessel changes with mild to moderate parenchymal volume loss unchanged. 3. Small amount of dural thickening with dural enhancement overlying the RIGHT hemisphere. This is likely reactive. No acute underlying subdural blood produc ts today. 4. Stable small area of hemosiderin in the RIGHT parasagittal frontal lobe unc hanged.
[2024-12-20] MEDS: gadobenate dimeglumine 20 mL vial IV (07:37)
== END 2024-12-20 06:57 | disposition home or self-care (01) ==
PROVIDERS: PCP Family Medicine; Visit Provider Psychiatry & Neurology Neurology
DX: I63.9 Cerebral infarction, unspecified (principal); I62.00 Nontraumatic subdural hemorrhage, unspecified; R93.0 Abnormal findings on diagnostic imaging of skull and head, not elsewhere classified; H74.8X2 Other specified disorders of left middle ear and mastoid
CPT/HCPCS: 70553; A9577

== ENCOUNTER 2025-07-15 00:28 | Observation (INO) | payer OTHER, SELFPAY ==
[2025-07-15] VITALS (10 sets, daily range): BP systolic 128–168; BP diastolic 68–95; PULSE 50–82; RESP 14–21; TEMP 36.3–36.6; O2SAT 89–98; BMI 24.8
--- OUTSIDE RECORDS SUMMARY | 2025-07-15 00:33 | XMS_ITS | Patient Health Record ---
Author Organization [facility] Address [address] [place] [address] Care Team Providers Care Exerciser Horse Name Role Phone Brodie Carson Primary Care Provider UnavailTd Ly Unavailable Reason For Referral No Information Medications Medication SIG (Take, Route, Frequency, Duration) Notes Start Date End Date Status Calcium Carbonate 600 MG Tablet 1 tablet with food Orally PRN Active Docusate Sodium 100 MG Capsule 1 capsule as needed Orally Twice a day Active Robaxin 500 MG Tablet 1.5 tablets Orally PRN Active Marinol 2.5 MG Capsule 1 capsule Orally Twice a day Active Pravastatin Sodium 40 MG Tablet 1 tablet Orally Once a day A ctive Tylenol 325 MG Tablet 1 tablet as needed Orally every 6 hrs Active Pregabalin 100 MG Capsule 1 capsule Oral ly Twice a day Active amLODIPine Besylate 5 MG Tablet 1 tablet Orally Once a day A ctive oxyCODONE HCl 5 MG Tablet 1 tablet po 6 hours prn Orally every 6 hrs; Duration: 30 days 01/28/2024 Active Lidocaine 4 % Cream 1 application as nee ded Externally Once a day Active [place] 5-325 MG Tablet 1 tablet as needed Orally every 4 hours; Duration: 30 days Active MiraLax 17 GM/SCOOP Powder 1 scoop mixed with 8 ounces of fluid Orally Once a day Active Aspirin 81 MG Tablet Delayed Release 1 tablet Orally Once a day Active metFORMIN HCl 500 MG Tablet 1 tablet with a meal Orally BID Active Omeprazole 20 MG Capsule Delayed Release 1 capsule 30 minutes before morning meal Orally Once a day Active Vitamin D3 50 MCG (1999 UT) Tablet 1 capsule Orally Once a day Active dilTIAZem HCl ER 180 MG Tablet Extended Release 24 Hour 1 tablet Orally Once a day A ctive Problems Problem Type SNOMED Code ICD Code Onset Dates Problem Status W/U Status Risk Notes Problem Type II diabetes mellitus without complication (743308641) Type 2 diabetes mellitus without complications (E11.9) Active confirmed Problem Essential hypertension (17865951) Essential hypertension (I10) Active confirmed Plan Of Treatment No Information Insurance Providers Payer Name Payer Address Payer Phone Subscriber Number Group Number Insured Name Patient Relationship to Insured Coverage Start Date Coverage End Date [place] [address] [address] [place] [address] [phone] [id number] GERARDO NDIAYE Self - patient is the insured
--- NOTE | 2025-07-15 00:43 | ECG_ITS ---
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 Measurements Intervals [place] Rate: 59 P: 82 [place]: 256 QRS: 78 QRSD: 57 T: 79 QT: 397 QTc: 394 Interpretive Statements SINUS BRADYCARDIA WITH FIRST DEGREE AV BLOCK SEPTAL MYOCARDIAL INFARCTION , PROBABLY OLD [40+ ms Q WAVE IN V1/V2] MARKED ST ELEVATION, CONSIDER INFERIOR INJURY [MARKED ST ELEVATION W/O NORMALLY INFLECTED T-WAVE IN II/aVF] ACUTE CO Compared to ECG 06/29/2024 03:23:00 ST (T wave) deviation now present Myocardial infarct finding still present Electronically Signed On 07-15-2025 18:45:18 RACK PUSHER by Nasrin Goode M.D. [email or web address] [id number]
--- NOTE | 2025-07-15 00:50 | CTR_ITS ---
PROCEDURE INFORMATION: Exam: CTA Head With Contrast, Arteriography Exam date and time: 07/15/2025 2:21 AM Age: 75 years old Clinical indication: Weakness; Additional info: 2 day HX R facial droop, R sided weakness TECHNIQUE: Imaging protocol: Computed tomographic angiography of the head with contrast. Exam focused on the arteries. 3D rendering (Not supervised by radiologist): MIP and/or 3D reconstructed images were created by the technologist. Radiation optimization: All CT scans at this facility use at least one of these dose optimization techniques: automated exposure control; mA and/or kV adjustment per patient size (includes targeted exams where dose is matched to clinical indication); or iterative reconstruction. Contrast material: OMNI 350; Contrast volume: 100 ml; Contrast route: INTRAVENOUS (IV); COMPARISON: CT angio headneck* [id number] 06/28/2024 11:16 PM RADIATION DOSE METRICS: Total DLP (mGy-cm): 423.6 FINDINGS: ANTERIOR CIRCULATION: Right internal carotid artery: Intracranial segment is patent with no significant stenosis. No aneurysm. Right middle cerebral artery: No occlusion or significant stenosis. No aneurysm. Right anterior cerebral artery: No occlusion or significant stenosis. No aneurysm. Left internal carotid artery: Intracranial segment is patent with no significant stenosis. No aneurysm. Left middle cerebral artery: No occlusion or significant stenosis. No aneurysm. Left anterior cerebral artery: No occlusion or significant stenosis. No aneurysm. POSTERIOR CIRCULATION: Right vertebral artery: No occlusion or significant stenosis. No aneurysm. Left vertebral artery: No occlusion or significant stenosis. No aneurysm. Basilar artery: No occlusion or significant stenosis. No aneurysm. Right posterior cerebral artery: No occlusion or significant stenosis. No aneurysm. Left posterior cerebral artery: No occlusion or significant stenosis. No aneurysm. Brain: No definite mass, mass effect, or midline shift. Cerebral ventricles: No ventriculomegaly. Bones/joints: Unremarkable. No acute fracture. Soft tissues: Unremarkable. PROCEDURE INFORMATION: Exam: CTA Neck With Contrast Exam date and time: 07/15/2025 2:21 AM Age: 75 years old Clinical indication: Weakness; Additional info: 2 day HX R facial droop, R sided weakness TECHNIQUE: Imaging protocol: Computed tomographic angiography of the neck with contrast. Exam focused on the cervical segments of the vasculature. 3D rendering (Not supervised by radiologist): MIP and/or 3D reconstructed images were created by the technologist. Radiation optimization: All CT scans at this facility use at least one of these dose optimization techniques: automated exposure control; mA and/or kV adjustment per patient size (includes targeted exams where dose is matched to clinical indication); or iterative reconstruction. Contrast material: OMNI 350; Contrast volume: 100 ml; Contrast route: INTRAVENOUS (IV); COMPARISON: CT angio headneck* [id number] 06/28/2024 11:16 PM RADIATION DOSE METRICS: Total DLP (mGy-cm): 423.6 FINDINGS: Right common carotid artery: No stenosis. No dissection or occlusion. Right internal carotid artery: No stenosis of the extracranial segment. No dissection or occlusion. Right external carotid artery: No occlusion or stenosis of the origin. Left common carotid artery: No stenosis. No dissection or occlusion. Left internal carotid artery: No stenosis of the extracranial segment. No dissection or occlusion. Left external carotid artery: No occlusion or stenosis of the origin. Right vertebral artery: No stenosis. No dissection or occlusion. Left vertebral artery: No stenosis. No dissection or occlusion. Aorta: Mild atherosclerotic changes of the thoracic aorta and its major branch vessels is noted. Soft tissues: Normal. No significant soft tissue swelling. Bones/joints: No acute fracture. Degenerative joint and disc disease is seen in the imaged spine. Lungs: Centrilobular emphysematous changes are present. CT/CT angio headne* [id number] IMPRESSION: No large vessel stenosis or occlusion. IMPRESSION: 1. No large vessel occlusion , stenosis, dissection, or aneurysm. 2. Emphysema. REFERENCES: NASCET CRITERIA. The degree of stenosis in the cervical segment of the internal carotid artery is based on NASCET criteria. Normal is no stenosis. Mild is less than 50% stenosis. Moderate is 50-69% stenosis. Severe is 70% to 99% stenosis. Total occlusion is no detectable patent lumen.
--- NOTE | 2025-07-15 00:50 | ECG_ITS ---
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 Measurements Intervals [place] Rate: 58 P: 85 [place]: 250 QRS: 75 QRSD: 89 T: 73 QT: 401 QTc: 395 Interpretive Statements SINUS BRADYCARDIA WITH FIRST DEGREE AV BLOCK Compared to ECG 06/29/2024 03:23:00 Myocardial infarct finding no longer present Electronically Signed On 07-15-2025 18:45:14 DRESS MARKER by Nasrin Goode M.D. [email or web address] [id number]
--- NOTE | 2025-07-15 00:50 | CTR_ITS ---
PROCEDURE INFORMATION: Exam: CT Head Without Contrast Exam date and time: 07/15/2025 2:17 AM Age: 75 years old Clinical indication: Weakness, facial; Additional info: 2 day HX R facial droop, R sided weakness TECHNIQUE: Imaging protocol: Computed tomography of the head without contrast. Radiation optimization: All CT scans at this facility use at least one of these dose optimization techniques: automated exposure control; mA and/or kV adjustment per patient size (includes targeted exams where dose is matched to clinical indication); or iterative reconstruction. COMPARISON: MR head wo/w con [id number] 12/20/2024 7:11 AM RADIATION DOSE METRICS: Total DLP (mGy-cm): 1085.5 FINDINGS: Brain: No acute intracranial hemorrhage. No midline shift or mass effect. No acute territorial infarct. Global age-related cerebral atrophy. Chronic, age related microangiopathy, consistent periventricular and subcortical white matter hypoattenuation. Encephalomalacia in the right frontal lobe, consistent with old infarct. Cerebral ventricles: No ventriculomegaly. Paranasal sinuses: Visualized sinuses are unremarkable. No fluid levels. Mastoid air cells: Visualized mastoid air cells are well aerated. Bones: Unremarkable. No acute fracture. Soft tissues: Unremarkable. CT/CT head wo con* [id number] IMPRESSION: 1. No acute intracranial hemorrhage. No midline shift or mass effect. 2. Encephalomalacia in the right frontal lobe, consistent with old infarct.
--- NOTE | 2025-07-15 00:51 | XRR_ITS ---
PROCEDURE INFORMATION: Exam: XR Chest Exam date and time: 07/15/2025 1:30 AM Age: 75 years old Clinical indication: Other: Weakness; Additional info: Weakness, R sided deficits x2 days TECHNIQUE: Imaging protocol: Radiologic exam of the chest. Views: 1 view. COMPARISON: CR XR chest 1V portable [id number] 06/28/2024 11:19 PM FINDINGS: Lungs: Unremarkable. No consolidation. Pleural spaces: Unremarkable. No pleural effusion. No pneumothorax. Heart/Mediastinum: Unremarkable. No cardiomegaly. Bones/joints: Unremarkable. XR/XR chest 1V portable [id number] IMPRESSION: No acute findings.
--- NOTE | 2025-07-15 01:03 | W.ED.NEUROSD ---
HPI - Neuro Symptoms/Deficit General: Chief Complaint: Neuro Symptoms/Deficit Stated Complaint: stroke symptoms Time Seen by Provider: 07/15/25 00:37 History of Present Illness: 75-year-old male past medical history significant for hypertension hyperlipidemia diabetes and stroke in the past (Right sided weakness) with no residual deficits, bilateral frontal subdural hygromas, presenting to the emergency department with onset since the morning of July 13 noted by son with generalized weakness, dizziness and being off balance, as well as right facial asymmetry and right-sided weakness. Patient reports chronic bilateral leg pain secondary to neuropathy which is unchanged, and mild low back pain, he denies chest pain or palpitations, he denies headache, he denies falls or trauma. He is compliant with his prescribed Eliquis and last took it today. He reports intermittent floaters to the right eye lateral visual field which is not currently present. Related Data Home Medications ?Medication ?Instructions ?Recorded ?Confirmed lisinopril 40 mg tablet 40 mg PO QPM 03/01/20 12/14/24 omeprazole 20 mg capsule,delayed 20 mg PO DAILY PRN Acid Reflux 03/01/20 12/14/24 release cholecalciferol (vitamin D3) 1,250 1,250 mcg PO DAILY 05/10/20 12/14/24 mcg (50,000 unit) capsule metformin 1,000 mg tablet See Rx Instructions .Route .COMPLEX 04/11/21 12/14/24 pregabalin 100 mg capsule 100 mg PO BID 04/11/21 12/14/24 sennosides 8.6 mg tablet 8.6 mg PO BID 04/11/21 12/14/24 apixaban 5 mg tablet 5 mg PO BID 12/14/24 12/14/24 coenzyme Q10 10 mg capsule (Co 10 mg PO BID 12/14/24 12/14/24 Q-10) Previous Rx's ?Medication ?Instructions ?Recorded diltiazem HCl 120 mg 120 mg PO DAILY #90 caps 04/12/21 capsule,extended release 24 hr aspirin 325 mg tablet,delayed 325 mg PO DAILY #30 tabs 06/30/24 release atorvastatin 40 mg tablet 80 mg (2 x 40 mg) PO BEDTIME #60 06/30/24 tabs ammonium lactate 12 % topical cream 1 applic topical DAILY #140 grams 09/22/24 Allergies Allergy/AdvReac Type Severity Reaction Status Date / Time No Known Allergies Allergy Verified 07/15/25 00:45 [facility] ED PFSH: Medical History GERD (gastroesophageal reflux disease) Hypertension nursing home (current) use of opiate analgesic Pain management contract signed Hypercholesterolemia Diabetes Surgical History History of ankle surgery H/O arthroscopic knee surgery Hx of cholecystectomy History of back surgery Family History Other Hypertension Stroke Denies family history of Diabetes CAD (coronary artery disease) Social History Smoking and tobacco/nicotine status: current every day tobacco/nicotine user cigarettes [ Other cigarette details: 3-4 CIGS DAY ] Alcohol intake: never Substance/Drug Use: never Caregiver/support person: Yes Lives independently: Yes Household members: spouse Marital status: NIH stroke score NIHSS: Level Of Consciousness - 1a: 0 Level Of Consciousness Questions - 1b: Both Correct Level Of Consciousness Commands - 1c: Both Correct Best Gaze - 2: Normal Visual White - 3: No Visual Loss Facial Palsy - 4: Minor Paralysis Motor Arm Right - 5: Drift Motor Arm Left - 5: No Drift Motor Leg Right - 6: Drift Motor Leg Left - 6: No Drift Limb Ataxia - 7: Present In One Limb Sensory - 8: Normal Best Language - 9: No Aphasia Dysarthia - 10: Normal Extinction And Inattention - 11: 0 Score: Total Score: 4 Physical Exam Narrative: EXAM NARRATIVE: Gen: A&Ox4, no acute distress, nontoxic appearing, appears lethargic frequently falls asleep HEENT: Normocephalic, atraumatic, no scleral icterus, external ears normal, moist mucous membranes Neck: Supple, full range of motion, no observable masses Lungs: No Respiratory distress, Lungs clear to auscultation bilaterally no rales, rhonchi, wheezing CV: Regular rate and rhythm, no murmur, no pitting edema to lower extremities bilaterally Abdomen: Soft, nondistended, nontender to palpation MSK: No joint swelling, FROM all 4 extremities Skin: No rashes, petechiae, lesions. Normal color per patient. Neuro: Alert and oriented x 4, no slurred speech, mild facial asymmetry with a right facial droop without complete paralysis, sensation intact to the bilateral face all trigeminal distributions, visual field intact, pupillary response normal, positive dysmetria to the right upper extremity, mild weakness to the right arm and right leg compared to the contralateral side, no sensation loss all 4 extremities Psych: Appropriate for situation. Course Reevaluation(s): Reevaluation #1: Results of workup significant for mild AYAZ, CT angio showing no significant large vessel occlusion, evidence of old infarction in the right on CT brain, given patient with evidence/symptoms of a subacute stroke outside window for therapy but compliant with anticoagulation, will admit for MRI and further evaluation. Time: 03:23 Consultations: Consultation #1: Spoke with hospitalist Dr. Carrillo who will evaluate the patient for admission Time: 03:23 Vital Signs: Vital signs: Vital Signs Temperature 97.8 F 07/15/25 00:32 Pulse Rate 58 L 07/15/25 02:58 Respiratory Rate 21 H 07/15/25 02:58 Blood Pressure 128/68 07/15/25 02:58 Pulse Oximetry 94 07/15/25 02:58 Oxygen Delivery Me thod Room Air 07/15/25 00:32 MDM - Neuro Symptoms/Deficit Medical Decision Making 75-year-old male past medical history significant for hypertension hyperlipidemia diabetes subdural hygromas, stroke in the past with right-sided symptoms that resolved without residual deficits, presenting emergency department with approximately 2-day history since the morning of the third of weakness, unsteady gait, right-sided weakness, mild right facial droop, concern for subacute CVA, patient is on anticoagulants which she is taking, not a candidate for thrombolytics, not a candidate for interventional given greater than 24-hour history of symptoms, plan for CT head, CTA head and neck, labs, reassess for disposition but anticipate admission for stroke workup Lab Data Workup showing AYAZ with a creatinine of 1.4 from a baseline of 0.9, mild alkalosis, no anemia or leukocytosis, troponin and proBNP borderline at 16 and 240 07/15/25 01:21 07/15/25 01:[address] 07/15/25 00:50 IMPRESSION: 1. No acute intracranial hemorrhage. No midline shift or mass effect. 2. Encephalomalacia in the right frontal lobe, consistent with old infarct. Head/Neck CTA 07/15/25 00:50 IMPRESSION: No large vessel stenosis or occlusion. IMPRESSION: 1. No large vessel occlusion , stenosis, dissection, or aneurysm. 2. Emphysema. REFERENCES: NASCET CRITERIA. The degree of stenosis in the cervical segment of the internal carotid artery is based on NASCET criteria. Normal is no stenosis. Mild is less than 50% stenosis. Moderate is 50-69% stenosis. Severe is 70% to 99% stenosis. Total occlusion is no detectable patent lumen. Chest X-Ray 07/15/25 00:51 IMPRESSION: No acute findings. Laboratory Results WBC 7.54 10^3/uL (3.29-11.43) 07/15/25 01:21 RBC 4.21 10^6/uL (3.85-5.65) 07/15/25 01:21 Hgb 12.80 g/dL (11.27-16.99) 07/15/25 01:21 Hct 40.7 % (37-53) 07/15/25 01:21 MCV 96.7 fl (82-101) 07/15/25 01:21 MCH 30.4 pg (27-33) 07/15/25 01:21 MCHC 31.4 g/dL (30-55) 07/15/25 01:21 RDW 13.9 % (12.1-15.1) 07/15/25 01:21 Plt Count 228 10^3/cmm (157-399) 07/15/25 01:21 MPV 10.1 fL (7.4-10.4) 07/15/25 01:21 Neut % (Auto) 63.6 % 07/15/25 01:21 Lymph % (Auto) 24.1 % 07/15/25 01:21 [place] % (Auto) 10.2 % 07/15/25 01:21 Eos % (Auto) 1.7 % 07/15/25 01:21 Baso % (Auto) 0.3 % 07/15/25 01:21 Neut # (Auto) 4.79 10^3/uL (1.8-7.7) 07/15/25 01:21 Lymph # (Auto) 1.8 10^3/uL (0.8-4.8) 07/15/25 01:21 [place] # (Auto) 0.8 10^3/uL (0.2-0.9) 07/15/25 01:21 Eos # (Auto) 0.1 10^3/uL (0.0-0.8) 07/15/25 01:21 Baso # (Auto) 0.0 10^3/uL (0.0-0.1) 07/15/25 01:21 Nucleated RBC % (auto) 0 % 07/15/25 01:21 Nucleated RBCs # 0.0 /100WBC 07/15/25 01:21 Sodium 142 mmol/L (136-145) 07/15/25 01:21 Potassium 5.0 mmol/L (3.5-5.1) 07/15/25 01:21 Chloride 104 mmol/L (98-107) 07/15/25 01:21 Carbon Dioxide 31 mmol/L (22-29) H 07/15/25 01:21 Anion Gap 12.0 (5-19) 07/15/25 01:21 BUN 26 mg/dL (8-23) H 07/15/25 01:21 Creatinine 1.4 mg/dL (0.7-1.2) H 07/15/25 01:21 GFR Calculation Not Reportable 07/15/25 01:21 Glucose 102 mg/dL (65-115) 07/15/25 01:21 Calculated Osmolality 299 mOsm/kg (285-295) H 07/15/25 01:21 Calcium 9.4 mg/dL (8.5-10.5) 07/15/25 01:21 Magnesium 2.2 mg/dL (1.7-2.3) 07/15/25 01:21 Total Bilirubin 0.2 mg/dL (0.15-1.2) 07/15/25 01:21 AST 16 U/L (0-40) 07/15/25 01:21 ALT 10 U/L (0-41) 07/15/25 01:21 Alkaline Phosphatase 76 U/L (40-130) 07/15/25 01:21 Troponin T Baseline 16 ng/L (0-15) H 07/15/25 01:21 NT-Pro-B Natriuret Pep 244 pg/mL (0-450) 07/15/25 01:21 Total Protein 6.5 g/dL (6.6-8.7) L 07/15/25 01:21 Albumin 4.3 g/dL (3.5-5.2) 07/15/25 01:21 Globulin 2.2 g/dL (1.3-4.6) 07/15/25 01:21 All radiology interpretation(s) finalized by discharge ED provider radiology interpretation(s): CT head showing old infarction no acute bleed, CT angio showing no large vessel occlusion EKG Data EKG 1: I personally reviewed and interpreted this EKG as follows: EKG interpretation date: 07/15/25 EKG interpretation time: 00:43 Interpretation: Sinus bradycardia with first-degree AV block at 59 bpm, unreadable baseline in the precordial leads, possible submillimeter ST elevations inferiorly, no reciprocal ST depressions, computer read as STEMI but does not appear consistent with STEMI in my judgment, repeat EKG showing no STEMI EKG 2: I personally reviewed and interpreted this EKG as follows: EKG interpretation date: 07/15/25 EKG interpretation time: 00:53 Interpretation: Sinus bradycardia with first-degree AV block at 50 bpm, no STEMI, no ectopy, QTc 397 ms Discharge Plan Discharge Patient Disposition: Admitted As Inpatient Clinical Impression: Cerebrovascular accident Condition: Stable Coding Level of Care Code ED Chip Crusher Operator for Sarah Sheth
[2025-07-15 01:32] LABS: Hematocrit 40.7 % (37-53); Hemoglobin 12.80 g/dL (11.27-16.99); Mean Corpuscular HGB Conc 31.4 g/dL (30-55); Mean Corpuscular Hemoglobin 30.4 pg (27-33); Mean Corpuscular Volume 96.7 fl (82-101); Nucleated Red Blood Cells % 0 %; Platelet Count 228 10^3/cmm (157-399); Red Blood Count 4.21 10^6/uL (3.85-5.65); White Blood Count 7.54 10^3/uL (3.29-11.43)
[2025-07-15 01:57] LABS: Troponin(5th) Baseline 16 ng/L (0-15)
[2025-07-15 02:04] LABS: Alanine Aminotransferase 10 U/L (0-41); Albumin Level 4.3 g/dL (3.5-5.2); Alkaline Phosphatase 76 U/L (40-130); Anion Gap 12.0 (5-19); Aspartate Amino Transferase 16 U/L (0-40); Blood Urea Nitrogen 26 mg/dL (8-23); Calcium 9.4 mg/dL (8.5-10.5); Carbon Dioxide 31 mmol/L (22-29); Chloride 104 mmol/L (98-107); Globulin 2.2 g/dL (1.3-4.6); Glucose 102 mg/dL (65-115); Magnesium 2.2 mg/dL (1.7-2.3); NT Pro B Type Natriuretic Pept 244 pg/mL (0-450); Osmolality Calculated 299 mOsm/kg (285-295); Potassium 5.0 mmol/L (3.5-5.1); Sodium 142 mmol/L (136-145); Total Protein 6.5 g/dL (6.6-8.7)
[2025-07-15] MEDS: iohexol 350 mg/mL 500 mL Btl (per mL) IV (02:34)
[2025-07-15 04:17] LABS: Troponin 5 2HR 15.23 ng/L (0-15)
[2025-07-15 04:22] LABS: Troponin 5 2HR Delta -0.77 ABS# (0-10)
--- NOTE | 2025-07-15 04:24 | USCV_ITS ---
Cory Miranda Age: 75 Gender: M : 1950 Exam Date: 07/15/2025 04:39 Ordering Phys: Edgard Carrillo MD Technologist: MANOLO Exam Location: [facility] [place] Indication: acute new stroke manifesting RIGHT hemiparesis, History of prior CVA with RT hemiparesis, was fully recovered. HTN, DM BP: 165 / 94 HR: 54 Rhythm: Sinus bradycardia Technical Quality: Adequate MEASUREMENTS (Male / Female) Normal Values 2D ECHO LV Diastolic Diameter PLAX 3.6 cm 4.2 - 5.9 / 3.9 - 5.3 cm IVS Diastolic Thickness 1.9 cm 0.6 - 1.0 / 0.6 - 0.9 cm IVS Systolic Thickness 1.9 cm LVPW Diastolic Thickness 1.1 cm 0.6 - 1.0 / 0.6 - 0.9 cm LVPW Systolic Thickness 1.7 cm LVOT Diameter 2.0 cm LV Ejection Fraction 2D Teich 58.8 % LV Ejection Fraction MOD 4C 63.8 % LV Ejection Fraction MOD 2C 56.0 % LV Ejection Fraction 2C AL 55.6 % LA Diameter 2.1 cm Aorta at Sinotubular Diameter 3.2 cm IVC Diameter 2.2 cm M-MODE LA Ao Ratio MM 0.8 AV Cusp Separation MM 2.0 cm DOPPLER AV Peak Velocity 112.0 cm/s LVOT Peak Velocity 75.0 cm/s AV Area Cont Eq vti 2.5 cm squared AV Area Cont Eq pk 2.1 cm squared MV Peak Velocity 113.0 cm/s MV Area PHT 2.5 cm squared Mitral E to A Ratio 0.8 TR Peak Velocity 226.0 cm/s TR Peak Gradient 20.4 mmHg TV Peak E Velocity 37.0 cm/s PV Peak Velocity 101.0 cm/s FINDINGS Left Ventricle Possibly normal LV size and ejection fraction of around 59%. No gross wall motion abnormalities. Segmental wall motion analysis difficult because of the poor ultrasonic window. Right Ventricle Possibly of normal RV size and ejection fraction Right Atrium Normal right atrial size. Left Atrium Normal left atrial size. IA Septum Normal appearance of the interatrial septum. Mitral Valve No gross abnormalities noted Aortic Valve Mild aortic valve regurgitation. Tricuspid Valve Trace tricuspid valve regurgitation. Estimated pulmonary artery peak systolic pressure possibly within normal limits Pulmonic Valve No gross abnormalities noted Pericardium No pericardial effusion. Aorta Normal aortic annulus size. IVC Normal inferior vena cava. CONCLUSIONS Possibly normal LV size and ejection fraction of around 59%. No gross wall motion abnormalities. Segmental wall motion analysis difficult because of the poor ultrasonic window. Mild aortic valve regurgitation. Trace tricuspid valve regurgitation. Estimated pulmonary artery peak systolic pressure possibly within normal limits. There is no pericardial effusion. There are no intracardiac masses. Comparison with the previous study is difficult because of the difference in the technical quality. Dr Nasrin Goode MD FAC (Electronically Signed) Final Date: 15 July 2025 10:00 S
--- NOTE | 2025-07-15 04:32 | PM.HP ---
Providers/Chief Complaint Admitting Physician: Edgard Carrillo MD Primary Care Provider: Surekha Harman MD Chief Complaint: stroke symptoms History of Present Illness Cory Miranda is a 75 year old male with history significant for prior CVA without residual deficit from 06/28/24, paroxysmal atrial fibrillation(based on holter monitor report 07/27/24) and maintained on Eliquis, DM, HTN, and HLD, who presented to our facility with complaints of right arm weakness. Paient states his right arm weakness has been present for the past few days on and off but on awakening the day of presentation, it was significantly worse. He came to the ED after his family encouraged him to do so. He others state his speech went plain and endorsed a headache. He specifically denied leg weakness. He denies fevers, shortness of breath, chest pain, or GI concerns. He feels his son thought he had some right facial droop. Medications/Allergies Home Medications ?Medication ?Instructions ?Recorded ?Confirmed ?Last Taken ?Type lisinopril 40 mg tablet 40 mg PO QPM 03/01/20 12/14/24 06/27/24 History omeprazole 20 mg capsule,delayed 20 mg PO DAILY PRN Acid Reflux 03/01/20 12/14/24 04/10/21 History release cholecalciferol (vitamin D3) 1,250 1,250 mcg PO DAILY 05/10/20 12/14/24 06/28/24 History mcg (50,000 unit) capsule metformin 1,000 mg tablet See Rx Instructions .Route .COMPLEX 04/11/21 12/14/24 06/28/24 History pregabalin 100 mg capsule 100 mg PO BID 04/11/21 12/14/24 06/28/24 History sennosides 8.6 mg tablet 8.6 mg PO BID 04/11/21 12/14/24 06/28/24 History diltiazem HCl 120 mg 120 mg PO DAILY #90 caps 04/12/21 12/14/24 06/28/24 Rx capsule,extended release 24 hr aspirin 325 mg tablet,delayed 325 mg PO DAILY #30 tabs 06/30/24 12/14/24 Unknown Rx release atorvastatin 40 mg tablet 80 mg (2 x 40 mg) PO BEDTIME #60 06/30/24 12/14/24 Unknown Rx tabs ammonium lactate 12 % topical cream 1 applic topical DAILY #140 grams 09/22/24 12/14/24 Unknown Rx apixaban 5 mg tablet 5 mg PO BID 12/14/24 12/14/24 Unknown History coenzyme Q10 10 mg capsule (Co 10 mg PO BID 12/14/24 12/14/24 Unknown History Q-10) Allergies Allergy/AdvReac Type Severity Reaction Status Date / Time No Known Allergies Allergy Verified 07/15/25 00:45 PFSH Acute PFSH: Medical History (Updated 07/15/25 @ 05:00 by Edgard Carrillo MD) GERD (gastroesophageal reflux disease) 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 Pain management contract signed Hypercholesterolemia Diabetes Surgical History History of ankle surgery H/O arthroscopic knee surgery Hx of cholecystectomy History of back surgery Family History Other Hypertension Stroke Denies family history of Diabetes CAD (coronary artery disease) Social History Smoking and tobacco/nicotine status: current every day tobacco/nicotine user cigarettes [ Other cigarette details: 3-4 CIGS DAY ] Alcohol intake: never Substance/Drug Use: never Caregiver/support person: Yes Lives independently: Yes Household members: spouse Marital status: Vitals/I&O/Wt Last Vital Signs Temp 97.8 F 07/15/25 00:32 Pulse 67 07/15/25 04:09 Resp 18 07/15/25 04:09 BP 157/87 07/15/25 04:09 Pulse Ox 93 07/15/25 04:09 O2 Del Method Room Air 07/15/25 00:32 Weight last 48 hrs Weight 83.121 kg Physical Exam Const: COMMON NORMALS: no acute distress and patient oriented x3 Resp: COMMON NORMALS: normal respiratory effort, No retractions, No use of accessory muscles and clear to auscultation bilaterally Cardio: COMMON NORMALS: regular rate, regular rhythm, S1 normal heart sound present and S2 normal heart sound present GI: COMMON NORMALS: Normal to inspection, nondistended, normoactive bowel sounds present Extremity: OTHER: No significant swelling Neuro: COMMON NORMALS: patient oriented x3, CN's II-XII intact bilaterally and moves all extremities OTHER: 4/5 power to the right upper and lower extremity. No tongue deviation on protrusion. Speech is clear and fluid. No dysmetria on finger to nose testing Data 07/15/25 01:21 07/15/25 01:21 A&P Assessment and plan 1. Stroke-like symptoms: - Admit under tele obs - PT/OT/ST consult - Obtain echocardiogram - Defer neurology consult and consideration for MRI to day attending - Continue ASA 325 - Increase lipitor to 80mg - Update lipid panel 2. Paroxysmal atrial fibrillation: - Afib report on holter monitoring from last year - Continue Eliquis 3. Hypertension: - Outside of permissive HTN window - Continue home antihypertensives 4. Hypercholesterolemia: - statin as above 5. Type 2 diabetes mellitus: - Update A1c - Place on SSI while hospitalized and hold metformin 6. Remote history of stroke: PDMP PDMP Reviewed: Not Reviewed Attestations Medical Necessity Statement*: Patient anticipated to require less than 2 midnights inpatient for stroke evaluation Coding Level of Care Code Acute Code for [facility] Diagnoses Stroke-like symptoms R29.90 Paroxysmal atrial fibrillation I48.0 Hypertension I10 Hypercholesterolemia E78.00 Type 2 diabetes mellitus E11.9 Remote history of stroke Z86.73
[2025-07-15 04:52] LABS: Cholesterol 78 mg/dL (0-200); HDL Cholesterol 44 mg/dL (60-100); Triglycerides 48 mg/dL (0-150)
[2025-07-15 05:07] LABS: Estmated Average Glucose 123; Hemoglobin A1C 5.9 % (4.0-6.0)
[2025-07-15] MEDS: dilTIAZem ER (24HR) 120 mg Capsule PO (05:39)
--- NOTE | 2025-07-15 08:18 | PC.PHAR ---
[facility] 07/15/25 8am
--- NOTE | 2025-07-15 11:09 | P.PN_ITS ---
Documented by User: Kaylie Maravilla NP 07/15/25 13:33 Subjective 2 Subjective: Patient resting in bed on RA, no family noted to be at bedside during my evaluation. He denies pain at this time but does complain of continued right- sided weakness. He denies difficulty swallowing. Plans of care discussions for PT/OT today and possible MRI tomorrow pending neurology consult. Patent agrees to move forward with plan. Vitals/I&O/Wt Last Vital Signs Temp 97.4 F L 07/15/25 10:54 Pulse 57 L 07/15/25 10:54 Resp 16 07/15/25 10:54 BP 168/74 07/15/25 10:54 Pulse Ox 91 07/15/25 10:54 O2 Del Method Room Air 07/15/25 10:54 07/14/25 07/15/25 07/15/25 22:59 06:59 14:59 Intake Total 1000 / 1000 240 / 240 Output Total 0 / 0 Balance 1000 / 1000 240 / 240 Weight last 48 hrs Weight 81.193 kg Weight 83.121 kg Physical Exam 2 Narrative: General: A&Ox4 , resting in bed on RA, no apparent distress. HEENT: Normo-cephalic, atraumatic, grossly unremarkable exam Cardio: NSR, normal S1-S2 w/o any murmurs, rubs, or gallops and JVD normal Respiratory: Diminished on auscultation w/o any wheezes, stridor, rhonchi GI: Abd soft, non-tender, non-distended, normo-active bowel sounds present Neuro: Right sided weakness noted, Normal speech Behavior: Appropriate and cooperative Extremities: Adequate palpable pulses. No clubbing, cyanosis or edema, Full ROM Data 07/15/25 01:21 07/15/25 01:21 Other Labs: 07/15: CRX: reviewed and results as follows: No acute findings. 07/15: Head/Neck CTA: reviewed and results as follows: No large vessel occlusion, stenosis, dissection, or aneurysm. Emphysema. 07/15: Head CT: reviewed and results as follows: No acute intracranial hemorrhage. No midline shift or mass effect. Encephalomalacia in the right frontal lobe, consistent with old infarct. A&P Assessment and plan 1. Stroke-like symptoms: 2. Paroxysmal atrial fibrillation: 3. Hypercholesterolemia: 4. Type 2 diabetes mellitus without complication, without long-term current use of insulin: 5. Gastroesophageal reflux disease without esophagitis: Plan: Stroke-like Symptoms Hx significant for prior CVA w/o residual deficit from 06/28/24 Hx of paroxysmal atrial fibrillation (based on holter monitor report 07/27/24) on Eliquis 5mg BID Patient complains of right sided weakness. 07/15: Head/Neck CTA: reviewed and results as follows: No large vessel occlusion, stenosis, dissection, or aneurysm. Emphysema. 07/15: Head CT: reviewed and results as follows: No acute intracranial hemorrhage. No midline shift or mass effect. Encephalomalacia in the right frontal lobe, consistent with old infarct. Neurology consulted- Dr. Garcia recommendations and expertise appreciated. Recommendations to get outpatient MRI and f/u outpatient in clinic. TSH ordered, pending. Echo ordered, pending Continue Aspirin 325mg PO, Lipitor 80mg PO PT/OT/ST Aspiration precautions NIHSS score q12hr Dysphasia screening , Level 7 diet- easy to chew Paroxysmal Atrial Fibrillation Based on holter monitor report 07/27/24 Continue home medication Eliquis 5mg BID Continuous cardiac monitoring AYAZ (pre-renal) Technician Chemical Cleaning 1.4, BUN 26 UA ordered, pending. HTN Outside of permissive HTN window GERD Protonix 40mg PO dly DM2 Hold home medication Jardiance, and metformin A1c 5.6% Blood Glucose monitoring, ACHS Low regimen sliding scale Hypoglycemia protocol Hypercholestorlemia Lipid panel resulted: Cholesterol 78, LDL 24, HDL 44 Continue increased medication Lipitor 80 mg PO CODE STATUS: Full code GI ppx: Protonix 40mg PO dly VTE ppx: SCDs, home medication Elliquis 5mg PO BID PDMP PDMP Reviewed: Not Reviewed Coding Level of Care Code 06291 Diagnoses Stroke-like symptoms R29.90 Paroxysmal atrial fibrillation I48.0 Hypercholesterolemia E78.00 Type 2 diabetes mellitus without complication, without long-term current use of insulin E11.9 Diabetes mellitus complication status: without complication 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 He denies pain at this time but does complain of continued right- sided weakness. He denies difficulty swallowing. Plans of care discussions for PT/OT today and possible MRI will be done outpatient if needed per . Patent agrees to move forward with plan. Data 07/15/25 01:21 07/15/25 01:21 A&P Assessment and plan 1. Stroke-like symptoms: 2. Paroxysmal atrial fibrillation: 3. Hypercholesterolemia: 4. Type 2 diabetes mellitus without complication, without long-term current use of insulin: 5. Gastroesophageal reflux disease without esophagitis: PDMP PDMP Reviewed: Not Reviewed Attestations 2 Medical Necessity Statement*: Anticipated continued medical management crossing 2 midnights due to continued weakness, PT/OT interventions and recommendations, and complex medical management. 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
--- NOTE | 2025-07-15 12:16 | USCV_ITS ---
Cory Miranda Age: 75 Gender: M : 1950 Exam Date: 07/15/2025 15:38 Ordering Phys: Miguelina Panchal NP Technologist: ARIA [place] [facility] [place]: [place] r/o BP: 168 / 74 HR: Rhythm: Sinus Technical Quality: Adequate MEASUREMENTS (Male / Female) Normal Values 2D ECHO LV Diastolic Diameter PLAX 4.3 cm 4.2 - 5.9 / 3.9 - 5.3 cm IVS Diastolic Thickness 0.8 cm 0.6 - 1.0 / 0.6 - 0.9 cm IVS Systolic Thickness 0.8 cm LVPW Diastolic Thickness 0.6 cm 0.6 - 1.0 / 0.6 - 0.9 cm LVPW Systolic Thickness 1.1 cm LVOT Diameter 2.0 cm LV Ejection Fraction 2D Teich 65.8 % LV Ejection Fraction MOD 4C 61.7 % LA Diameter 3.1 cm RA Systolic Volume 4C AL 48.1 ml RA Systolic Volume 4C MOD 46.7 ml LA Sys Volume AL 45.3 cm cubed LA Sys Volume Index AL 22.2 cm cubed/m squared Aorta at Sinotubular Diameter 2.5 cm IVC Diameter 2.7 cm M-MODE LA Ao Ratio MM 1.0 AV Cusp Separation MM 2.0 cm FINDINGS Left Ventricle Normal left ventricular size, systolic function and wall thickness, with no regional wall motion abnormalities. Left ventricular ejection fraction is estimated at 60 %. Right Ventricle Normal right ventricular size and systolic function. Right Atrium Normal right atrial size. No intracardiac shunt through bubble study was noted. Bubble study was negative Left Atrium Normal left atrial size. IA Septum Normal appearance of the interatrial septum. Mitral Valve Aortic Valve Moderate aortic valve calcification. Tricuspid Valve Pulmonic Valve Pericardium No pericardial effusion. Aorta Normal diameter of the aortic root and ascending thoracic aorta. IVC Normal IVC diameter. CONCLUSIONS Limited echo to assess intracardiac shunt through pulsed Normal left ventricular size, systolic function and wall thickness, with no regional wall motion abnormalities. Left ventricular ejection fraction is estimated at 60 %. Normal right atrial size. No intracardiac shunt through bubble study was noted. Bubble study was negative There is no pericardial effusion. Chi Galvez MD (Electronically Signed) Final Date: 16 July 2025 18:28 S
[2025-07-15 13:13] LABS: Thyroid Stimulating Hormone 0.73 uIU/mL (0.27-4.20)
[2025-07-15 13:23] LABS: Estmated Average Glucose 123; Hemoglobin A1C 5.9 % (4.0-6.0)
--- NOTE | 2025-07-15 15:12 | PM.CONSULT ---
Providers/Reason For Consult Consulting Physician/Specialty*: Dr. Vicki Garcia Reason for Consult*: RICHARD Hou Attending Physician: Miguelina Panchal NP Primary Care Provider: Surekha Harman MD History of Present Illness History of Present Illness Cory Miranda is a 75 year old man who was brought to the emergency department just after midnight with 1 or 2 days of weakness, dizziness, loss of balance. He is already on Eliquis and compliant it also takes a baby aspirin per day. He is a smoker, but only a few. On arrival his NIH stroke scale score was 4 according to the emergency department physician and it was the opinion of Edward Tang in the ER that the patient needed to be admitted to have an MRI for some reason, although that would not change treatment. He saw Dr. 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 He follows at the [facility] with Dr. Harman. CT head 07/15/2025: My reading: Severe diffuse white matter disease unchanged when compared with MRI of December 2024. No sign of a focal stroke. No significant change from June 2024. CT angiogram showed no extracranial or intracranial stenosis. Emphysema. Daughter says that he was not feeling himself, could not walk. He has never actually had a stroke based upon her MRI scans but he did have a subdural hygroma. Addie thought he had an aneuysm on the brain but he does not. Son lives next door. He last rode a horse 3 days ago. He has been grieving the loss of his 2 months ago. He really misses her. His subdural a year ago resulted from getting kicked in the head by a horse. His mother and his brother at the same time and he was devastated. Review of Systems Narrative: His daughter Addie says this his memory is good and he says his memory is good. 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 He claims that he quit smoking but then he lets me know he is still smoking a couple a day. He has been smoking his whole life. No headaches. His diabetes is under good control with a hemoglobin A1c of 5.9. He is compliant on apixaban for atrial fibrillation. Medications/Allergies Home Medications ?Medication ?Instructions ?Recorded ?Confirmed ?Last Taken ?Type pregabalin 100 mg capsule 100 mg PO BID 04/11/21 07/15/25 07/14/25 History sennosides 8.6 mg tablet 8.6 mg PO BID PRN Constipation 04/11/21 07/15/25 06/28/24 History ammonium lactate 12 % topical cream 1 applic topical DAILY #140 grams 09/22/24 07/15/25 07/14/25 Rx apixaban 5 mg tablet 5 mg PO BID 12/14/24 07/15/25 07/14/25 History albuterol sulfate 90 mcg/actuation 2 puff inhalation QID PRN copd 07/15/25 07/15/25 Unknown History aerosol inhaler aspirin 81 mg tablet,delayed 81 mg PO DAILY 07/15/25 07/15/25 07/14/25 History release carbamide peroxide 6.5 % ear drops 4 drp otic (ear) .Q2H PRN Ear Wax 07/15/25 07/15/25 Unknown History (Debrox) docusate sodium 100 mg capsule 100 mg PO BID 07/15/25 07/15/25 07/14/25 History (Colace) duloxetine 30 mg capsule,delayed 30 mg PO DAILY 07/15/25 07/15/25 07/14/25 History release empagliflozin 25 mg tablet 12.5 mg PO QAM 07/15/25 07/15/25 07/14/25 History (Jardiance) metformin 500 mg tablet,extended 1,000 mg PO BID 07/15/25 07/15/25 07/14/25 History release 24 hr multivitamin 1 tab PO DAILY 07/15/25 07/15/25 07/14/25 History psyllium 2 tsp PO DAILY 07/15/25 07/15/25 07/14/25 History rosuvastatin 10 mg tablet 10 mg PO QPM 07/15/25 07/15/25 07/14/25 History tiotropium bromide 2.5 2 puff inhalation DAILY 07/15/25 07/15/25 07/14/25 History mcg/actuation mist for inhalation Allergies Allergy/AdvReac Type Severity Reaction Status Date / Time No Known Allergies Allergy Verified 07/15/25 00:45 Current Medications Generic Name Dose Route Start Last Admin Trade Name Jaleesa PRN Reason Stop Dose Admin Apixaban 5 mg 07/15/25 05:09 07/15/25 05:39 Apixaban 5 Mg Tablet PO 5 mg BID DARON Administration Aspirin 325 mg 07/15/25 05:09 07/15/25 05:39 Aspirin 325 Mg Ec Tablet PO 325 mg DAILY DARON Administration Diltiazem HCl 120 mg 07/15/25 05:09 07/15/25 05:39 Diltiazem Er (24hr) 120 Mg Capsule PO 120 mg DAILY DARON Administration Insulin Human Lispro 0 unit 07/15/25 08:00 07/15/25 10:41 Insulin Lispro 100 Unit/1 Ml SUBCUT Not Given WM&BEDTIME DARON Protocol Pregabalin 100 mg 07/15/25 05:09 07/15/25 05:39 Pregabalin 100 Mg Capsule PO 100 mg BID DARON Administration Senna 8.6 mg 07/15/25 05:09 07/15/25 05:39 Sennosides 8.6 Mg Tablet PO 8.6 mg BID DARON Administration PFSH Acute PFSH: Medical History Gastroesophageal reflux disease without esophagitis 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 Pain management contract signed Hypercholesterolemia Diabetes Surgical History History of ankle surgery H/O arthroscopic knee surgery Hx of cholecystectomy History of back surgery Family History Other Hypertension Stroke Denies family history of Diabetes CAD (coronary artery disease) Social History Smoking and tobacco/nicotine status: current every day tobacco/nicotine user cigarettes [ Other cigarette details: 3-4 CIGS DAY ] Alcohol intake: never Substance/Drug Use: never Caregiver/support person: Yes Lives independently: Yes Household members: spouse Marital status: Vitals/I&O/Wt Last Vital Signs Temp 97.4 F L 07/15/25 10:54 Pulse 57 L 07/15/25 10:54 Resp 16 07/15/25 10:54 BP 168/74 07/15/25 10:54 Pulse Ox 91 07/15/25 10:54 O2 Del Method Room Air 07/15/25 10:54 07/15/25 07/15/25 07/15/25 06:59 14:59 22:59 Intake Total 1000 / 1000 480 / 480 Output Total 0 / 0 380 / 380 Balance 1000 / 1000 100 / 100 Weight last 48 hrs Weight 179 lb Weight 183 lb 4 oz Physical Exam Narrative: GENERAL: He has a wizzened complexion but he looks younger than his age. MENTAL STATUS: He was somewhat reluctant to have memory testing. He remembered 0 of 3 objects after distraction. He did not attempt to perform serial sevens at all and would not spell the word world forward or backward. Despite that he did tell me what he has been doing lately and he is familiar with his physician at the [facility], knows her name and what is going on with her personally. He can follow three-step commands. CRANIAL NERVES: No visual field cut. Eye movements full. Face symmetric. Repetitive guttural's and lingual's performed without dysarthria. MOTOR: No drift. He has robust strength. SENSATION: Normal for age. Slight reduction in distal vibration in the feet but otherwise intact including pin and touch and proprioception. COORDINATION: He can walk on tiptoes with standby assistance. He could not walk a straight line. Stance was stable with the eyes open and closed. DEEP TENDON REFLEXES: 1/4 throughout. GAIT: He was able to get up from his bed and walk to the door and return to his bed safely. HEENT: Normocephalic without dysmorphic features. Conjunctivae were not injected and sclerae were nonicteric. NECK: Carotid upstroke was strong bilaterally without bruits. The thyroid was not enlarged and there were no palpable lymph nodes. CHEST: Clear to auscultation. CARDIOVASCULAR: The heart sounds were normal without murmur or gallop. Regular rate and rhythm. EXTREMITIES: Minimal arthritic changes. Data 07/15/25 01:21 07/15/25 01:21 A&P Assessment and plan 1. TIA (transient ischemic attack): He presented with unsteadiness and gait disorder that he said developed over several days. He is back to baseline now. He was a little dry when he arrived and labs were otherwise unremarkable. His CT scan of the head continues to show diffuse white matter changes. He does not actually have a focal stroke as I compared his CAT scan to previous MRI scans and CAT scans and his subdural hygroma has resolved and he has no subdural blood. 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 I would not change his current regimen of apixaban 5 mg twice daily and 81 mg of aspirin daily. He is already on rosuvastatin and should continue. Considering his lack of atherosclerosis by CTA I would not change his dose of rosuvastatin 10 mg daily. I talked with his daughter and I talked with the patient and both of them are comfortable with him returning home tomorrow morning if all is well. I will be glad to see him as an outpatient in the clinic. I would recommend an EEG be performed as an outpatient when it can be done because I still am not quite sure why this gentleman felt bad enough to come to the hospital. 2. Paroxysmal atrial fibrillation: 3. Type 2 diabetes mellitus without complication, without long-term current use of insulin: 4. Smoking addiction: 5. Demyelinating changes in brain: Has diffuse profound demyelinating changes throughout the brain. PDMP PDMP Reviewed: Not Reviewed Consult Attestations Medical Necessity Statement: He was unable to walk or function at home and thought he was having a stroke. Coding Level of Care Code [facility] TIA (transient ischemic attack) G45.9 Paroxysmal atrial fibrillation I48.0 Type 2 diabetes mellitus without complication, without long-term current use of insulin E11.9 Diabetes mellitus penitentiary insulin use: without junior estimator use Diabetes mellitus complication status: without complication Smoking addiction F17.200 Demyelinating changes in brain G37.9
[2025-07-15 15:36] LABS: Glucose Urine UA 3+ (Normal); Nitrate Urine Negative (Negative)
[2025-07-15 15:41] LABS: Add Urine Microscopic? YES
[2025-07-15 15:45] LABS: Specific Gravity, Urine 1.037 (1.005-1.030)
[2025-07-16 03:00] VITALS: BP 155/72; PULSE 69; RESP 15; TEMP 36.5; O2SAT 84
[2025-07-16 04:20] LABS: Hematocrit 42.4 % (37-53); Hemoglobin 13.50 g/dL (11.27-16.99); Mean Corpuscular HGB Conc 31.8 g/dL (30-55); Mean Corpuscular Hemoglobin 30.9 pg (27-33); Mean Corpuscular Volume 97.0 fl (82-101); Nucleated Red Blood Cells % 0 %; Platelet Count 210 10^3/cmm (157-399); Red Blood Count 4.37 10^6/uL (3.85-5.65); White Blood Count 7.51 10^3/uL (3.29-11.43)
[2025-07-16 04:41] LABS: Alanine Aminotransferase 14 U/L (0-41); Albumin Level 3.7 g/dL (3.5-5.2); Alkaline Phosphatase 69 U/L (40-130); Anion Gap 12.9 (5-19); Aspartate Amino Transferase 23 U/L (0-40); Blood Urea Nitrogen 18 mg/dL (8-23); Calcium 9.2 mg/dL (8.5-10.5); Carbon Dioxide 28 mmol/L (22-29); Chloride 104 mmol/L (98-107); Globulin 2.3 g/dL (1.3-4.6); Glucose 80 mg/dL (65-115); Osmolality Calculated 291 mOsm/kg (285-295); Potassium 4.9 mmol/L (3.5-5.1); Sodium 140 mmol/L (136-145); Total Protein 6.0 g/dL (6.6-8.7)
[2025-07-16 04:45] LABS: Magnesium 2.1 mg/dL (1.7-2.3)
[2025-07-16] MEDS: dilTIAZem ER (24HR) 120 mg Capsule PO (05:05)
[2025-07-16 06:00] VITALS: BMI 23.8
--- NOTE | 2025-07-16 07:29 | P.DS_ITS ---
Discharge Providers Date of Admission: 07/15/25 03:40 Date of Discharge: July 16, 2025 Attending Provider at Admission: Edgadr Carrillo MD Attending Provider at Discharge: Miguelina Panchal NP Primary Care Provider: Surekha Harman MD Diagnoses at Discharge Discharge Diagnosis 1. TIA (transient ischemic attack): 2. Paroxysmal atrial fibrillation: 3. Type 2 diabetes mellitus without complication, without long-term current use of insulin: 4. Smoking addiction: 5. Demyelinating changes in brain: Reason for Visit Reason for Visit: stroke symptoms Brief History: Admission: Cory Miranda is a 75 year old male with history significant for prior CVA without residual deficit from 06/28/24, paroxysmal atrial fibrillation(based on holter monitor report 07/27/24) and maintained on Eliquis, DM, HTN, and HLD, who presented to our facility with complaints of right arm weakness. Paient states his right arm weakness has been present for the past few days on and off but on awakening the day of presentation, it was significantly worse. He came to the ED after his family encouraged him to do so. He others state his speech went plain and endorsed a headache. He specifically denied leg weakness. He denies fevers, shortness of breath, chest pain, or GI concerns. He feels his son thought he had some right facial droop. Hospital Course Hospital Course TIA Hx significant for prior CVA w/o residual deficit from 06/28/24 Hx of paroxysmal atrial fibrillation (based on holter monitor report 07/27/24) on Eliquis 5mg BID Patient complains of right sided weakness. 07/15: Head/Neck CTA: reviewed and results as follows: No large vessel occlusion, stenosis, dissection, or aneurysm. Emphysema. 07/15: Head CT: reviewed and results as follows: No acute intracranial hemorrhage. No midline shift or mass effect. Encephalomalacia in the right frontal lobe, consistent with old infarct. Neurology consulted- Dr. Garcia recommendations and expertise appreciated. Recommendations to get outpatient MRI and f/u outpatient in clinic. TSH 0.73 ECHO: Possibly normal LV size and ejection fraction of around 59%. No gross wall motion abnormalities. Segmental wall motion analysis difficult because of the poor ultrasonic window. Mild aortic valve regurgitation. Trace tricuspid valve regurgitation. Estimated pulmonary artery peak systolic pressure possibly within normal limits. There is no pericardial effusion. There are no intracardiac masses. Comparison with the previous study is difficult because of the difference in the technical quality. Continue Aspirin 325mg PO, Lipitor 80mg PO PT/OT/ST Aspiration precautions NIHSS score q12hr Dysphasia screening , Level 7 diet- easy to chew Paroxysmal Atrial Fibrillation Based on holter monitor report 07/27/24 Continue home medication Eliquis 5mg BID Continuous cardiac monitoring AYAZ (pre-renal) resolved BUN 18, creatinine 1.0 HTN Resume home medications GERD Protonix 40mg PO dly DM2 Hold home medication Jardiance, and metformin A1c 5.6% Blood Glucose monitoring, ACHS Low regimen sliding scale Hypoglycemia protocol Hypercholestorlemia Lipid panel resulted: Cholesterol 78, LDL 24, HDL 44 Continue increased medication Lipitor 80 mg PO, prescribed at discharge CODE STATUS: Full code GI ppx: Protonix 40mg PO dly VTE ppx: SCDs, home medication Elliquis 5mg PO BID Discharge: Patient discharges home in stable condition in care of family referral to home health of choice. Greatly appreciate case management and coordination of discharge planning in setting of home health. Greatly appreciate neurology consultation and management with Dr. Garcia, patient will follow-up with Dr. Garcia at the next available appointment. Patient is advised to be compliant with his statin and resume his home medications as previously prescribed. Patient is advised to follow-up with primary care provider in 1 to 2 days of discharge. All questions and concerns addressed the patient prior to discharge. Physical Exam Narrative: General: A&Ox4 , resting in bed on RA, no apparent distress. HEENT: Normo-cephalic, atraumatic, grossly unremarkable exam Cardio: NSR, normal S1-S2 w/o any murmurs, rubs, or gallops and JVD normal Respiratory: Diminished on auscultation w/o any wheezes, stridor, rhonchi GI: Abd soft, non-tender, non-distended, normo-active bowel sounds present Neuro: Right sided weakness noted, Normal speech Behavior: Appropriate and cooperative Extremities: Adequate palpable pulses. No clubbing, cyanosis or edema, Full ROM Discharge Data Studies Completed and Pending Completed Studies During Hospitalization Category Date Time Status CT head wo con* [id number] Stat Cat Scan 07/15/25 00:50 Completed CTA head neck [CT angio headneck* [id number]] Stat Cat Scan 07/15/25 00:50 Completed XR chest 1V portable [id number] Stat Exams 07/15/25 00:51 Completed CV. echo complete* [id number] Routine Ultrasound 07/15/25 04:24 Completed Pending at discharge Category Date Time Status CV. echo lmt wo/w bubble [id number] Routine Ultrasound 07/15/25 12:16 Taken Radiology Impressions Head CT 07/15/25 00:50 IMPRESSION: 1. No acute intracranial hemorrhage. No midline shift or mass effect. 2. Encephalomalacia in the right frontal lobe, consistent with old infarct. Head/Neck CTA 07/15/25 00:50 IMPRESSION: No large vessel stenosis or occlusion. IMPRESSION: 1. No large vessel occlusion , stenosis, dissection, or aneurysm. 2. Emphysema. REFERENCES: NASCET CRITERIA. The degree of stenosis in the cervical segment of the internal carotid artery is based on NASCET criteria. Normal is no stenosis. Mild is less than 50% stenosis. Moderate is 50-69% stenosis. Severe is 70% to 99% stenosis. Total occlusion is no detectable patent lumen. Chest X-Ray 07/15/25 00:51 IMPRESSION: No acute findings. Laboratory Results WBC 7.51 10^3/uL (3.29-11.43) 07/16/25 03:23 RBC 4.37 10^6/uL (3.85-5.65) 07/16/25 03:23 Hgb 13.50 g/dL (11.27-16.99) 07/16/25 03:23 Hct 42.4 % (37-53) 07/16/25 03:23 MCV 97.0 fl (82-101) 07/16/25 03:23 MCH 30.9 pg (27-33) 07/16/25 03:23 MCHC 31.8 g/dL (30-55) 07/16/25 03:23 RDW 13.8 % (12.1-15.1) 07/16/25 03:23 Plt Count 210 10^3/cmm (157-399) 07/16/25 03:23 MPV 10.7 fL (7.4-10.4) H 07/16/25 03:23 Neut % (Auto) 67.4 % 07/16/25 03:23 Lymph % (Auto) 21.6 % 07/16/25 03:23 [place] % (Auto) 8.5 % 07/16/25 03:23 Eos % (Auto) 1.9 % 07/16/25 03:23 Baso % (Auto) 0.3 % 07/16/25 03:23 Neut # (Auto) 5.07 10^3/uL (1.8-7.7) 07/16/25 03:23 Lymph # (Auto) 1.6 10^3/uL (0.8-4.8) 07/16/25 03:23 Marion # (Auto) 0.6 10^3/uL (0.2-0.9) 07/16/25 03:23 Eos # (Auto) 0.1 10^3/uL (0.0-0.8) 07/16/25 03:23 Baso # (Auto) 0.0 10^3/uL (0.0-0.1) 07/16/25 03:23 Nucleated RBC % (auto) 0 % 07/16/25 03:23 Nucleated RBCs # 0.0 /100WBC 07/16/25 03:23 Sodium 140 mmol/L (136-145) 07/16/25 03:23 Potassium 4.9 mmol/L (3.5-5.1) 07/16/25 03:23 Chloride 104 mmol/L (98-107) 07/16/25 03:23 Carbon Dioxide 28 mmol/L (22-29) 07/16/25 03:23 Anion Gap 12.9 (5-19) 07/16/25 03:23 BUN 18 mg/dL (8-23) 07/16/25 03:23 Creatinine 1.0 mg/dL (0.7-1.2) 07/16/25 03:23 GFR Calculation Not Reportable 07/16/25 03:23 Glucose 80 mg/dL (65-115) 07/16/25 03:23 POC Glucose 79 mg/dL (70-110) 07/16/25 06:19 Estimat Average Glucose 123 07/15/25 12:37 Hemoglobin A1c 5.9 % (4.0-6.0) 07/15/25 12:37 Calculated Osmolality 291 mOsm/kg (285-295) 07/16/25 03:23 Calcium 9.2 mg/dL (8.5-10.5) 07/16/25 03:23 Magnesium 2.1 mg/dL (1.7-2.3) 07/16/25 03:23 Total Bilirubin 0.4 mg/dL (0.15-1.2) 07/16/25 03:23 AST 23 U/L (0-40) 07/16/25 03:23 ALT 14 U/L (0-41) 07/16/25 03:23 Alkaline Phosphatase 69 U/L (40-130) 07/16/25 03:23 Troponin T Baseline 16 ng/L (0-15) H 07/15/25 01:21 Troponin T 120 Minute 15.23 ng/L (0-15) H 07/15/25 03:35 Delta Troponin T -0.77 ABS# (0-10) L 07/15/25 03:35 NT-Pro-B Natriuret Pep 244 pg/mL (0-450) 07/15/25 01:21 Total Protein 6.0 g/dL (6.6-8.7) L 07/16/25 03:23 Albumin 3.7 g/dL (3.5-5.2) 07/16/25 03:23 Globulin 2.3 g/dL (1.3-4.6) 07/16/25 03:23 Triglycerides 48 mg/dL (0-150) 07/15/25 01:21 Cholesterol 78 mg/dL (0-200) 07/15/25 01:21 LDL Cholesterol, Calc 24 mg/dL (50-129) L 07/15/25 01:21 HDL Cholesterol 44 mg/dL (60-100) L 07/15/25 01:21 LDL/HDL Ratio 0.55 RATIO (0.00-3.22) 07/15/25 01:21 Cholesterol/HDL Ratio 1.77 mg/dL (1.0-5.00) 07/15/25 01:21 TSH 0.73 uIU/mL (0.27-4.20) 07/15/25 12:37 Urine Color Yellow (Yellow) 07/15/25 15:27 Urine Appearance Clear (CLEAR) 07/15/25 15:27 Urine pH 6.0 (5-7) 07/15/25 15:27 Ur Specific [place] 1.037 (1.005-1.030) H 07/15/25 15:27 Urine Protein 1+ (Negative) A 07/15/25 15:27 Urine Glucose (UA) 3+ (Normal) H 07/15/25 15:27 Urine Ketones Negative (Negative) 07/15/25 15:27 Urine Blood 1+ (Negative) A 07/15/25 15: Urine Nitrate Negative (Negative) 07/15/25 15: Urine Bilirubin Negative (Negative) 07/15/25 15:27 Urine Urobilinogen 0.2 mg/dL (Negative) 07/15/25 15: Ur Leukocyte Esterase Negative (Negative) 07/15/25 15:27 Urine RBC 6-10 /hpf (0-2) 07/15/25 15:27 Urine WBC 0-5 /hpf (0-5) 07/15/25 15:27 Ur Squamous Epith Cells 0-5 /hpf (0-5) 07/15/25 15:27 Amorphous Sediment Not Reportable 07/15/25 15:27 Urine Bacteria None seen /hpf (NONE) 07/15/25 15:27 Hyaline Casts 0-4 /lpf H 07/15/25 15:27 Vitals Last Vital Signs Temp 97.7 F 07/16/25 03:00 Pulse 69 07/16/25 03:00 Resp 15 07/16/25 03:00 BP 155/72 07/16/25 03:00 Pulse Ox 84 L 07/16/25 03:00 O2 Del Method Room Air 07/16/25 03:00 Discharge Plan Discharge Patient Disposition: Home Health Service Condition: Stable Prescriptions: New atorvastatin 40 mg Tablet 80 mg PO BEDTIME 90 Days Qty: 180 0RF lisinopril 20 mg Tablet 40 mg PO QPM 90 Days Qty: 180 0RF diltiazem HCl 120 mg Capsule,Extended Release 24hr 120 mg PO DAILY 90 Days Qty: 90 0RF Continued ammonium lactate 12 % cream 1 applic topical DAILY Qty: 140 3RF apixaban 5 mg tablet 5 mg PO BID sennosides 8.6 mg Tablet 8.6 mg PO BID PRN (Reason: Constipation) pregabalin 100 mg Capsule 100 mg PO BID multivitamin Tablet 1 tab PO DAILY aspirin 81 mg Tablet,Delayed Release (Dr/Ec) 81 mg PO DAILY psyllium Powder 2 tsp PO DAILY Rx Instructions: mix into at least 4 oz water or juice before administering Debrox 6.5 % Drops 4 drp OTIC (EAR) .Q2H PRN (Reason: Ear Wax) docusate sodium [Colace] 100 mg Capsule 100 mg PO BID albuterol sulfate 90 mcg/actuation Hfa Aerosol Inhaler 2 puff INHALATION QID PRN (Reason: copd) metformin 500 mg Tablet Extended Release 24 Hr 1,000 mg PO BID duloxetine 30 mg Capsule,Delayed Release(Dr/Ec) 30 mg PO DAILY tiotropium bromide 2.5 mcg/actuation Mist 2 puff INHALATION DAILY Jardiance 25 mg Tablet 12.5 mg PO QAM Discontinued rosuvastatin 10 mg Tablet 10 mg PO QPM Discharge Order = DC NOW: Discharge Order (Routine); Ordered 07/16/25 Ordered By: Miguelina Panchal Other Ambulatory Orders: DME: Walker (Order) Location: None Selected Ordered By: Miguelina Panchal Referrals: Vicki Garcia MD [Physician, Neurology] - 7-10 days Referral Note: We have notified your physician's clinic of the need for a follow-up appointment to be scheduled. If you have not heard from them within the next 2 business days, please call them directly. Surekha Hamran MD [Primary Care Provider, Family Practice] - 1-3 days Referral Note: We have notified your physician's clinic of the need for a follow-up appointment to be scheduled. If you have not heard from them within the next 2 business days, please call them directly. Discharge Diet: Cardiac Discharge Activity: Resume usual activity Patient Instructions: Transient Ischemic Attack (DC), Opioid Safety, Patient Portal & Huan Instructions Discharge Attestations Time Spent in Discharge Care*: greater than 30 min Quality Metrics Clinical Quality Measures [ No reported AMI, CVA or VTE this stay] Coding Level of Care Code 77971 Diagnoses TIA (transient ischemic attack) G45.9 Paroxysmal atrial fibrillation I48.0 Type 2 diabetes mellitus without complication, without long-term current use of insulin E11.9 Diabetes mellitus complication status: without complication Diabetes mellitus ferry terminal agent insulin use: without ferry terminal agent use Smoking addiction F17.200 Demyelinating changes in brain G37.9
[2025-07-16 07:40] VITALS: BP 153/82; PULSE 68; RESP 19; TEMP 36.6; O2SAT 91
[2025-07-16 08:56] VITALS: BP 153/82; PULSE 68; RESP 19; TEMP 36.6; O2SAT 91
== END 2025-07-16 09:14 | disposition home health service (06) ==
LOC: ER 03:34 → MEDSURG 04:02
PROVIDERS: Admitting Provider Family Medicine; Emergency Provider Student in an Organized Health Care Education/Training Program; PCP Family Medicine; Visit Provider Registered Nurse
DX: G45.9 Transient cerebral ischemic attack, unspecified (principal); G37.9 Demyelinating disease of central nervous system, unspecified; I48.0 Paroxysmal atrial fibrillation; E11.9 Type 2 diabetes mellitus without complications; Z79.84 Long term (current) use of oral hypoglycemic drugs; Z79.82 Long term (current) use of aspirin; Z79.01 Long term (current) use of anticoagulants; E78.5 Hyperlipidemia, unspecified; I10 Essential (primary) hypertension; Z86.73 Personal history of transient ischemic attack (TIA), and cerebral infarction without residual deficits; Z79.4 Long term (current) use of insulin; K21.9 Gastro-esophageal reflux disease without esophagitis; Z79.891 Long term (current) use of opiate analgesic; Z82.3 Family history of stroke; Z82.49 Family history of ischemic heart disease and other diseases of the circulatory system; F17.210 Nicotine dependence, cigarettes, uncomplicated; E78.00 Pure hypercholesterolemia, unspecified
CPT/HCPCS: 36415; 36416; 70450; 70496; 70498; 71045; 80053; 80061; 81001; 82962; 83036; 83735; 83880; 84443; 84484; 85025; 92523; 92610; 93005; 93306; 96360; 96361; 97116; 97161; 97165; 99285; C8924; G0378; J7030; J9999